=== PATIENT | female | born 1945 | race Caucasian/White ===

== ENCOUNTER → 2017-10-01 15:15 | Outpatient (CLI) | payer MEDICARE, BC, OTHER, SELFPAY ==
[2017-10-01 17:58] LABS: Absolute Neutrophil Count 6.6 X10^3/uL (2.0-7.7); Basophil# 0.05 X10^3/uL; Basophil% 0.4 % (0-1); Eosinophil# 0.08 X10^3/uL; Eosinophils% 0.7 % (0-5); Hematocrit 41.5 % (37-47); Hemoglobin 14.3 g/dl (12.0-15.0); Lymphocyte % 26.9 % (19-41); Mean Corp Hgb Conc 34.5 g/gl (32-36); Mean Corpuscular Hgb 34.4 pg (27.0-32.0); Mean Corpuscular Volume 99.8 fL (81-99); Mean Platelet Vol. 11.1 fl (6.2-12.0); Monocyte# 1.16 X10^3/uL; Monocyte% 10.4 % (0-10); Neutrophil # 6.64 X10^3/uL (2.7-7.7); Neutrophil % 59.5 % (47-70); POSITIVE COUNT YES; POSITIVE DIFFERENTIAL NO; POSITIVE MORPHOLOGY YES; Platelet Count 223 K/mm3 (150-450); RBC Distribution Width CV 13.6 % (11.6-14.6); Red Blood Count 4.16 M/mm3 (4.2-5.4); White Blood Count 11.2 K/mm3 (4.4-11.0)
[2017-10-01 18:15] LABS: Vitamin D,25 Hydroxy 26.6 ng/mL (29.95-100.01)
[2017-10-01 19:17] LABS: ALB/GLOB Ratio 1.1 RATIO (0.9-2.4); AST(SGOT) 22 U/L (15-37); Alanine Aminotransfer ALT/SGPT 31 U/L (13-56); Albumin, Serum 3.7 g/dL (3.2-5.0); Alkaline Phosphatase 85 U/L (45-117); Anion Gap 8 (5-15); BUN 10 mg/dL (7-18); BUN/Creat Ratio 12.3 RATIO (10-20); Calcium,Total 8.6 mg/dL (8.5-10.1); Chloride 106 mmol/L (98-107); Creatinine, Serum 0.81 mg/dL (0.55-1.02); EST Glomerular Filtration Rate 74 mL/min (>60); Est Glom Filt Rate - Afr Amer 90 mL/min (>60); Globulin 3.3 g/dL (2.2-4.2); Glucose 87 mg/dL (74-106); Potassium 4.1 mmol/L (3.5-5.1); Sodium Level 142 mmol/L (136-145); Thyroid Stim Hormone (TSH) 0.72 uIU/mL (0.358-3.74)
[2017-10-02 14:54] LABS: Pathologist Review Reviewed
== END ==
PROVIDERS: Family Provider Family Medicine Geriatric Medicine; PCP Family Medicine Geriatric Medicine; Visit Provider Family Medicine Geriatric Medicine
DX: E11.9 Type 2 diabetes mellitus without complications (principal); E55.9 Vitamin D deficiency, unspecified; E78.4 Other hyperlipidemia
CPT/HCPCS: 36415; 80053; 82306; 84443; 85025

== ENCOUNTER → 2017-11-11 18:37 | Outpatient (CLI) | payer MEDICARE, BC, OTHER, SELFPAY | PROVIDERS: Family Provider Family Medicine Geriatric Medicine; PCP Family Medicine Geriatric Medicine; Visit Provider Family Medicine Geriatric Medicine | DX: N39.0 Urinary tract infection, site not specified (principal) | CPT/HCPCS: 87086; 87088 ==

== ENCOUNTER → 2017-11-12 16:52 | Outpatient (CLI) | payer MEDICARE, BC, OTHER, SELFPAY ==
--- NOTE | 2017-11-12 16:56 | CT_ITS ---
STUDY: CT BRAIN WITHOUT CONTRAST REASON FOR EXAM: Female, 72 years old. Delirium, DIZZINESS, CONFUSION, HX BREAST CA RADIATION DOSAGE (If Supplied By Facility): CTDIvol = ( 44.99 ) mGy, DLP = ( 762.36 ) mGycm TECHNIQUE: Transaxial CT imaging of the brain was performed without administration of intravenous contrast material. COMPARISON: None. FINDINGS: Normal soft tissue structures. Normal calvarium. There are calcifications noted in the distal vertebral arteries. There are calcifications noted in the cavernous carotid arteries. This is consistent for atherosclerotic disease. There is mild cerebral atrophy with widening of the extra-axial spaces and ventricular dilatation. There are areas of decreased attenuation within the white matter tracts of the supratentorial brain, consistent with microvascular disease changes. Normal basal ganglia and thalami. Normal brainstem. There is mild cerebellar atrophy. There is no intracranial hemorrhage. There are no findings of an acute ischemic infarction. Normal visualized paranasal sinuses. CT/Brain/Head without Contrast IMPRESSION: Chronic involutional changes of the brain. There are no acute findings. Electronically Signed: Kyle Abreu MD at 17:28 EDT , Service support ,
== END ==
PROVIDERS: Family Provider Family Medicine Geriatric Medicine; PCP Family Medicine Geriatric Medicine; Visit Provider Family Medicine Geriatric Medicine
DX: F05 Delirium due to known physiological condition (principal)
CPT/HCPCS: 70450

== ENCOUNTER → 2018-04-20 14:47 | Outpatient (CLI) | payer MEDICARE, BC, OTHER, SELFPAY ==
[2018-04-20 17:22] LABS: Absolute Lymphocyte Count 2.93 X10^3/ul (0.83-4.51); Absolute Neutrophil Count 7.9 X10^3/uL (2.0-7.7); Basophil# 0.06 X10^3/uL; Basophil% 0.5 % (0-1); Eosinophil# 0.07 X10^3/uL; Eosinophils% 0.6 % (0-5); Hematocrit 40.8 % (37-47); Hemoglobin 13.4 g/dl (12.0-15.0); Lymphocyte # 2.93 X10^3/ul (4.0); Lymphocyte % 23.8 % (19-41); Mean Corp Hgb Conc 32.8 g/gl (32-36); Mean Corpuscular Hgb 32.5 pg (27.0-32.0); Mean Platelet Vol. 11.1 fl (6.2-12.0); Monocyte# 1.24 X10^3/uL; Monocyte% 10.1 % (0-10); Neutrophil # 7.88 X10^3/uL (2.7-7.7); Platelet Count 243 K/mm3 (150-450); RBC Distribution Width CV 13.4 % (11.6-14.6); RBC Distribution Width SD 48.2 fl (35.1-43.9); Red Blood Count 4.12 M/mm3 (4.2-5.4); White Blood Count 12.3 K/mm3 (4.4-11.0)
[2018-04-20 17:23] LABS: POSITIVE COUNT NO; POSITIVE DIFFERENTIAL NO; POSITIVE MORPHOLOGY NO
[2018-04-20 17:55] LABS: ALB/GLOB Ratio 1.1 RATIO (0.9-2.4); AST(SGOT) 18 U/L (15-37); Alanine Aminotransfer ALT/SGPT 28 U/L (13-56); Albumin, Serum 3.6 g/dL (3.2-5.0); Alkaline Phosphatase 86 U/L (45-117); Anion Gap 7 (5-15); BUN 14 mg/dL (7-18); BUN/Creat Ratio 18.1 RATIO (10-20); Calcium,Total 8.9 mg/dL (8.5-10.1); Chloride 104 mmol/L (98-107); Creatinine, Serum 0.77 mg/dL (0.55-1.02); EST Glomerular Filtration Rate 78 mL/min (>60); Est Glom Filt Rate - Afr Amer 94 mL/min (>60); Globulin 3.3 g/dL (2.2-4.2); Glucose 68 mg/dL (74-106); Potassium 4.2 mmol/L (3.5-5.1); Protein, Total 6.9 g/dL (6.4-8.2); Sodium Level 141 mmol/L (136-145)
[2018-04-20 18:01] LABS: Vitamin D,25 Hydroxy 17.9 ng/mL (29.95-100.01)
[2018-04-22 11:27] LABS: Hep C Antibodies <0.1 s/co ratio (0.0-0.9)
== END ==
PROVIDERS: Family Provider Family Medicine Geriatric Medicine; PCP Family Medicine Geriatric Medicine; Visit Provider Family Medicine Geriatric Medicine
DX: E11.9 Type 2 diabetes mellitus without complications (principal); E55.9 Vitamin D deficiency, unspecified; Z13.89 Encounter for screening for other disorder
CPT/HCPCS: 36415; 80053; 82306; 85025; 86803

== ENCOUNTER → 2018-07-29 16:08 | Outpatient (CLI) | payer MEDICARE, BC, OTHER, SELFPAY ==
--- NOTE | 2018-07-29 16:45 | RAD_ITS ---
STUDY: X-RAY - LUMBAR SPINE REASON FOR EXAM: Female, 73 years old. Low back pain TECHNIQUE: 3 view(s) of the lumbar spine were obtained. COMPARISON: 04/30/2017 FINDINGS: Normal lumbar lordosis. There is no substantial scoliosis. There is a normal alignment of the vertebrae in the lateral view from L1 to L5. There is a bilateral pars defect and grade 2 spondylolisthesis at L5/S1. There is multilevel endplate spondylosis of the lumbar vertebrae. Mild disc space narrowing in the majority of the lumbar spine, there is significant disc space narrowing at L5/S1 There is no demonstrated fracture. There is atherosclerotic calcification of the abdominal aorta without a demonstrated aneurysm. RAD/Lumbar Spine 2 or 3 Views IMPRESSION: Degenerative changes of the spine, as detailed above. Stable bilateral pars defect and grade 2 spondylolisthesis at L5/S1 Electronically Signed: Neo Mora MD at 17:20 EST , Service support ,
== END ==
PROVIDERS: Family Provider Family Medicine Geriatric Medicine; PCP Family Medicine Geriatric Medicine; Referring Provider Family Medicine Geriatric Medicine; Visit Provider Family Medicine Geriatric Medicine
DX: M54.5 Low back pain (principal)
CPT/HCPCS: 72100

== ENCOUNTER → 2018-10-20 14:29 | Outpatient (CLI) | payer MEDICARE, BC, OTHER, SELFPAY ==
[2018-10-20 15:41] LABS: Absolute Neutrophil Count 5.7 X10^3/uL (2.0-7.7); Basophil# 0.04 X10^3/uL; Basophil% 0.4 % (0-1); Eosinophil# 0.08 X10^3/uL; Eosinophils% 0.8 % (0-5); Hematocrit 38.3 % (37-47); Hemoglobin 12.1 g/dl (12.0-15.0); Mean Corp Hgb Conc 31.6 g/gl (32-36); Mean Corpuscular Hgb 29.9 pg (27.0-32.0); Mean Corpuscular Volume 94.6 fL (81-99); Mean Platelet Vol. 10.8 fl (6.2-12.0); Monocyte# 0.89 X10^3/uL; Monocyte% 9.2 % (0-10); Neutrophil # 5.73 X10^3/uL (2.7-7.7); Neutrophil % 59.5 % (47-70); Platelet Count 275 K/mm3 (150-450); RBC Distribution Width CV 14.3 % (11.6-14.6); RBC Distribution Width SD 47.3 fl (35.1-43.9); Red Blood Count 4.05 M/mm3 (4.2-5.4); White Blood Count 9.7 K/mm3 (4.4-11.0)
[2018-10-20 15:43] LABS: POSITIVE COUNT NO; POSITIVE DIFFERENTIAL NO; POSITIVE MORPHOLOGY NO
[2018-10-20 16:25] LABS: ALB/GLOB Ratio 1.1 RATIO (0.9-2.4); AST(SGOT) 19 U/L (15-37); Alanine Aminotransfer ALT/SGPT 25 U/L (13-56); Albumin, Serum 3.6 g/dL (3.2-5.0); Alkaline Phosphatase 90 U/L (45-117); Anion Gap 7 (5-15); BUN 11 mg/dL (7-18); BUN/Creat Ratio 12.8 RATIO (10-20); Calcium,Total 8.4 mg/dL (8.5-10.1); Chloride 106 mmol/L (98-107); Creatinine, Serum 0.86 mg/dL (0.55-1.02); EST Glomerular Filtration Rate 69 mL/min (>60); Est Glom Filt Rate - Afr Amer 83 mL/min (>60); Globulin 3.3 g/dL (2.2-4.2); Glucose 93 mg/dL (74-106); Potassium 3.5 mmol/L (3.5-5.1); Protein, Total 6.9 g/dL (6.4-8.2); Sodium Level 144 mmol/L (136-145)
== END ==
PROVIDERS: Family Provider Family Medicine Geriatric Medicine; PCP Family Medicine Geriatric Medicine; Visit Provider Family Medicine Geriatric Medicine
DX: E11.9 Type 2 diabetes mellitus without complications (principal); E55.9 Vitamin D deficiency, unspecified; I10 Essential (primary) hypertension
CPT/HCPCS: 36415; 80053; 82306; 84443; 85025

== ENCOUNTER → 2019-04-21 14:55 | Outpatient (CLI) | payer MEDICARE, BC, OTHER, SELFPAY ==
[2019-04-21 15:53] LABS: Absolute Lymphocyte Count 2.82 X10^3/uL (0.83-4.51); Absolute Neutrophil Count 7.1 X10^3/uL (2.0-7.7); Basophil# 0.05 X10^3/uL; Basophil% 0.5 % (0-1); Eosinophil# 0.03 X10^3/uL; Eosinophils% 0.3 % (0-5); Hematocrit 37.4 % (37-47); Hemoglobin 11.4 g/dL (12.0-15.0); Lymphocyte # 2.82 X10^3/ul (4.0); Lymphocyte % 25.5 % (19-41); Mean Corp Hgb Conc 30.5 g/dL (32-36); Mean Corpuscular Hgb 26.3 pg (27.0-32.0); Mean Corpuscular Volume 86.2 fL (81-99); Mean Platelet Vol. 10.9 fl (6.2-12.0); Monocyte# 0.84 X10^3/uL; Monocyte% 7.6 % (0-10); NRBC Flagged by Analyzer 0 % (0-5); Neutrophil # 7.11 X10^3/uL (2.7-7.7); Neutrophil % 64.2 % (47-70); Platelet Count 323 K/mm3 (150-450); RBC Distribution Width CV 16.4 % (11.6-14.6); Red Blood Count 4.34 M/mm3 (4.2-5.4); White Blood Count 11.1 K/mm3 (4.4-11.0)
[2019-04-21 16:11] LABS: Vitamin D,25 Hydroxy 44.4 ng/mL (29.95-100.01)
[2019-04-21 16:19] LABS: ALB/GLOB Ratio 1.2 RATIO (0.9-2.4); AST(SGOT) 16 U/L (15-37); Alanine Aminotransfer ALT/SGPT 21 U/L (13-56); Albumin, Serum 3.9 g/dL (3.2-5.0); Alkaline Phosphatase 94 U/L (45-117); Anion Gap 8 (5-15); BUN 14 mg/dL (7-18); BUN/Creat Ratio 14.8 RATIO (10-20); Calcium,Total 8.9 mg/dL (8.5-10.1); Chloride 106 mmol/L (98-107); Creatinine, Serum 0.94 mg/dL (0.55-1.02); EST Glomerular Filtration Rate 62 mL/min (>60); Est Glom Filt Rate - Afr Amer 75 mL/min (>60); Globulin 3.2 g/dL (2.2-4.2); Glucose 97 mg/dL (74-106); Potassium 3.5 mmol/L (3.5-5.1); Protein, Total 7.1 g/dL (6.4-8.2); Sodium Level 143 mmol/L (136-145); Thyroid Stim Hormone (TSH) 0.48 uIU/mL (0.358-3.74)
== END ==
PROVIDERS: Family Provider Family Medicine Geriatric Medicine; PCP Family Medicine Geriatric Medicine; Visit Provider Family Medicine Geriatric Medicine
DX: E11.9 Type 2 diabetes mellitus without complications (principal); R53.83 Other fatigue; E55.9 Vitamin D deficiency, unspecified; N39.0 Urinary tract infection, site not specified
CPT/HCPCS: 36415; 80053; 82306; 84443; 85025; 87086; 87088

== ENCOUNTER → 2019-07-20 14:28 | Outpatient (CLI) | payer MEDICARE, BC, OTHER, SELFPAY ==
[2019-07-20 14:45] LABS: Absolute Lymphocyte Count 3.47 X10^3/uL (0.83-4.51); Absolute Neutrophil Count 9.5 X10^3/uL (2.0-7.7); Basophil% 0.7 % (0-1); Eosinophil# 0.07 X10^3/uL; Eosinophils% 0.5 % (0-5); Hematocrit 41.5 % (37-47); Hemoglobin 13.2 g/dL (12.0-15.0); Lymphocyte # 3.47 X10^3/ul (4.0); Lymphocyte % 23.8 % (19-41); Mean Corp Hgb Conc 31.8 g/dL (32-36); Mean Corpuscular Hgb 27.6 pg (27.0-32.0); Mean Corpuscular Volume 86.8 fL (81-99); Mean Platelet Vol. 10.6 fl (6.2-12.0); Monocyte# 1.04 X10^3/uL; Monocyte% 7.1 % (0-10); NRBC Flagged by Analyzer 0 % (0-5); Neutrophil # 9.46 X10^3/uL (2.7-7.7); Neutrophil % 64.7 % (47-70); Platelet Count 327 K/mm3 (150-450); RBC Distribution Width CV 18.7 % (11.6-14.6); RBC Distribution Width SD 58.7 fl (35.1-43.9); Red Blood Count 4.78 M/mm3 (4.2-5.4); White Blood Count 14.6 K/mm3 (4.4-11.0)
[2019-07-20 15:34] LABS: AST(SGOT) 21 U/L (15-37); Alanine Aminotransfer ALT/SGPT 40 U/L (13-56); Albumin, Serum 3.9 g/dL (3.2-5.0); Alkaline Phosphatase 131 U/L (45-117); Anion Gap 5 (5-15); BUN 14 mg/dL (7-18); BUN/Creat Ratio 12.6 RATIO (10-20); Calcium,Total 9.1 mg/dL (8.5-10.1); Chloride 97 mmol/L (98-107); Creatinine, Serum 1.11 mg/dL (0.55-1.02); EST Glomerular Filtration Rate 51 mL/min (>60); Est Glom Filt Rate - Afr Amer 62 mL/min (>60); Globulin 3.8 g/dL (2.2-4.2); Glucose 112 mg/dL (74-106); Potassium 2.9 mmol/L (3.5-5.1); Protein, Total 7.7 g/dL (6.4-8.2); Sodium Level 139 mmol/L (136-145); Thyroid Stim Hormone (TSH) 0.65 uIU/mL (0.358-3.74)
[2019-07-20 15:36] LABS: Vitamin D,25 Hydroxy 34.7 ng/mL (29.95-100.01)
== END ==
PROVIDERS: Family Provider Family Medicine Geriatric Medicine; PCP Family Medicine Geriatric Medicine; Visit Provider Family Medicine Geriatric Medicine
DX: E11.9 Type 2 diabetes mellitus without complications (principal); E55.9 Vitamin D deficiency, unspecified; R53.83 Other fatigue
CPT/HCPCS: 36415; 80053; 82306; 84443; 85025

== ENCOUNTER → 2019-08-18 16:16 | Outpatient (CLI) | payer MEDICARE, OTHER, SELFPAY ==
[2019-08-18 17:08] LABS: Absolute Lymphocyte Count 2.62 X10^3/uL (0.83-4.51); Absolute Neutrophil Count 10.3 X10^3/uL (2.0-7.7); Basophil# 0.06 X10^3/uL; Basophil% 0.4 % (0-1); Eosinophil# 0.04 X10^3/uL; Eosinophils% 0.3 % (0-5); Hematocrit 36.6 % (37-47); Hemoglobin 11.5 g/dL (12.0-15.0); Lymphocyte # 2.62 X10^3/ul (4.0); Lymphocyte % 18.3 % (19-41); Mean Corp Hgb Conc 31.4 g/dL (32-36); Mean Corpuscular Hgb 28.2 pg (27.0-32.0); Mean Corpuscular Volume 89.7 fL (81-99); Mean Platelet Vol. 10.9 fl (6.2-12.0); Monocyte# 1.07 X10^3/uL; Monocyte% 7.5 % (0-10); NRBC Flagged by Analyzer 0 % (0-5); Neutrophil # 10.34 X10^3/uL (2.7-7.7); Platelet Count 263 K/mm3 (150-450); RBC Distribution Width CV 18.4 % (11.6-14.6); RBC Distribution Width SD 60.4 fl (35.1-43.9); Red Blood Count 4.08 M/mm3 (4.2-5.4); White Blood Count 14.3 K/mm3 (4.4-11.0)
[2019-08-18 17:19] LABS: Anion Gap 5 (5-15); BUN 17 mg/dL (7-18); BUN/Creat Ratio 16.2 RATIO (10-20); Calcium,Total 8.8 mg/dL (8.5-10.1); Chloride 102 mmol/L (98-107); Creatinine, Serum 1.05 mg/dL (0.55-1.02); EST Glomerular Filtration Rate 55 mL/min (>60); Est Glom Filt Rate - Afr Amer 66 mL/min (>60); Glucose 90 mg/dL (74-106); Potassium 3.5 mmol/L (3.5-5.1); Sodium Level 138 mmol/L (136-145)
== END ==
PROVIDERS: Family Provider Family Medicine Geriatric Medicine; PCP Family Medicine Geriatric Medicine; Visit Provider Family Medicine Geriatric Medicine
DX: F05 Delirium due to known physiological condition (principal); E87.6 Hypokalemia
CPT/HCPCS: 36415; 80048; 85025

== ENCOUNTER → 2019-08-25 14:32 | Outpatient (CLI) | payer MEDICARE, OTHER, SELFPAY ==
[2019-08-25 14:11] VITALS: BMI 25.9
--- NOTE | 2019-08-25 14:33 | RAD_ITS ---
STUDY: X-RAY - LEFT SHOULDER REASON FOR EXAM: Fracture. TECHNIQUE: 4 view(s) of the shoulder. COMPARISON: None. FINDINGS: There is osteopenia. Normal glenohumeral articulation. Normal acromioclavicular joint. Normal acromion. There is an impacted fracture of the surgical neck of the humerus and a nondisplaced fracture of the greater tuberosity. There are surgical clips adjacent to the chest wall. There are prominent interstitial lung markings. RAD/Shoulder min 2 Views IMPRESSION: Proximal humeral fracture. Electronically Signed: Chris Espinosa MD at 15:06 EST Tel , Service support ,
== END ==
PROVIDERS: PCP Family Medicine Geriatric Medicine; Referring Provider Orthopaedic Surgery; Visit Provider Orthopaedic Surgery
DX: M25.512 Pain in left shoulder (principal)
CPT/HCPCS: 73030

== ENCOUNTER → 2019-09-02 14:10 | Outpatient (CLI) | payer MEDICARE, OTHER, SELFPAY ==
[2019-08-25 14:11] VITALS: BMI 25.9
--- NOTE | 2019-09-02 14:20 | RAD_ITS ---
HISTORY: LEFT PAIN IN THE WRIST. ADDITIONAL HISTORY: None provided. TECHNIQUE: Left wrist 3 views Number of images including paperwork: 3 COMPARISON: None FINDINGS: BONES: No acute fracture. Mineralization appears decreased. JOINTS: No subluxation. Mild to moderate degenerative changes of the wrist and first carpometacarpal joints. SOFT TISSUES: No distinct foreign body. RAD/Wrist min 3 Views IMPRESSION: Degenerative changes without acute osseous abnormality. at 2303 Reported and signed by: Sissy Mike MD Electronically Signed: Sissy Mike MD at 23:03 EST Tel , Service support ,
== END ==
PROVIDERS: PCP Family Medicine Geriatric Medicine; Referring Provider Family Medicine Geriatric Medicine; Visit Provider Family Medicine Geriatric Medicine
DX: M25.532 Pain in left wrist (principal); N39.0 Urinary tract infection, site not specified
CPT/HCPCS: 73110; 87086

== ENCOUNTER → 2019-09-22 15:09 | Outpatient (CLI) | payer MEDICARE, OTHER, SELFPAY ==
[2019-09-22 08:02] VITALS: BMI 25.9
--- NOTE | 2019-09-22 15:10 | RAD_ITS ---
STUDY: X-RAY - LEFT SHOULDER REASON FOR EXAM: Female, 74 years old. Fell 3 weeks ago TECHNIQUE: 3 view(s) of the shoulder. COMPARISON: 08/25/2019 FINDINGS: Generalized osteopenia again noted. No interval change in the positioning and alignment of the previously noted impacted surgical neck fracture of the humerus. There has been some progressive healing but incomplete osseous union is yet to occur. Since the previous study, there has been inferior subluxation of the humeral head relative to the glenoid on the AP films. This may suggest rotator cuff pathology or more likely capsular disruption. Normal alignment of the acromioclavicular joint. No upper rib fracture or pneumothorax RAD/Shoulder min 2 Views IMPRESSION: No interval change in alignment or positioning of the previously noted impacted fracture of the proximal left humerus. There has been some progressive healing since the previous study, osseous union is yet to occur. Inferior subluxation of the humeral head relative to the glenoid suggesting likely capsular disruption or injury Anatomic alignment of the acromioclavicular joint Electronically Signed: Neo Mora MD at 15:52 EST , Service support ,
== END ==
PROVIDERS: PCP Family Medicine Geriatric Medicine; Referring Provider Orthopaedic Surgery; Visit Provider Orthopaedic Surgery
DX: S42.202A Unspecified fracture of upper end of left humerus, initial encounter for closed fracture (principal)
CPT/HCPCS: 73030

== ENCOUNTER → 2019-10-19 14:30 | Outpatient (CLI) | payer MEDICARE, OTHER, SELFPAY ==
[2019-09-22 08:02] VITALS: BMI 25.9
[2019-10-19 15:17] LABS: Absolute Lymphocyte Count 3.64 X10^3/uL (0.83-4.51); Basophil# 0.08 X10^3/uL; Basophil% 0.6 % (0-1); Eosinophil# 0.06 X10^3/uL; Eosinophils% 0.5 % (0-5); Hematocrit 38.1 % (37-47); Hemoglobin 11.8 g/dL (12.0-15.0); Lymphocyte # 3.64 X10^3/ul (4.0); Lymphocyte % 27.5 % (19-41); Mean Corpuscular Hgb 28.9 pg (27.0-32.0); Mean Corpuscular Volume 93.4 fL (81-99); Mean Platelet Vol. 10.7 fl (6.2-12.0); Monocyte# 1.14 X10^3/uL; Monocyte% 8.6 % (0-10); NRBC Flagged by Analyzer 0 % (0-5); Neutrophil # 8.01 X10^3/uL (2.7-7.7); Neutrophil % 60.4 % (47-70); Platelet Count 309 K/mm3 (150-450); Red Blood Count 4.08 M/mm3 (4.2-5.4); White Blood Count 13.3 K/mm3 (4.4-11.0)
[2019-10-19 15:31] LABS: Vitamin D,25 Hydroxy 47.1 ng/mL
[2019-10-19 15:42] LABS: AST(SGOT) 24 U/L (15-37); Alanine Aminotransfer ALT/SGPT 37 U/L (13-56); Albumin, Serum 3.7 g/dL (3.2-5.0); Alkaline Phosphatase 122 U/L (45-117); Anion Gap 5 (5-15); BUN 15 mg/dL (7-18); Calcium,Total 8.7 mg/dL (8.5-10.1); Chloride 102 mmol/L (98-107); Creatinine, Serum 0.94 mg/dL (0.55-1.02); EST Glomerular Filtration Rate 62 mL/min (>60); Est Glom Filt Rate - Afr Amer 75 mL/min (>60); Globulin 3.6 g/dL (2.2-4.2); Glucose 90 mg/dL (74-106); Potassium 3.7 mmol/L (3.5-5.1); Protein, Total 7.3 g/dL (6.4-8.2); Sodium Level 138 mmol/L (136-145); Thyroid Stim Hormone (TSH) 0.86 uIU/mL (0.358-3.74)
== END ==
PROVIDERS: PCP Family Medicine Geriatric Medicine; Visit Provider Family Medicine Geriatric Medicine
DX: E11.9 Type 2 diabetes mellitus without complications (principal); E55.9 Vitamin D deficiency, unspecified
CPT/HCPCS: 36415; 80053; 82306; 84443; 85025

== ENCOUNTER → 2019-12-15 10:50 | Outpatient (CLI) | payer MEDICARE, OTHER, SELFPAY ==
[2019-09-22 08:02] VITALS: BMI 25.9
--- NOTE | 2019-12-15 10:51 | RAD_ITS ---
STUDY: X-RAY - LEFT HUMERUS REASON FOR EXAM: Female, 74 years old. Fracture. TECHNIQUE: 3 view(s) of the humerus. COMPARISON: None. FINDINGS: There is a fracture of the anatomic neck of the humerus. There is cephalad displacement of the humeral shaft which impacts along the inferolateral aspect of the acromium. The humeral head is rotated but remains in normal alignment with the glenoid process. The remainder of the humeral shaft is unremarkable. The surgical clips in the left breast. RAD/Humerus min 2 Views IMPRESSION: Displaced fracture of the proximal humerus. Electronically Signed: Stepan Greenwood DO at 21:32 EDT Tel [phone], Service support ,
== END ==
PROVIDERS: PCP Family Medicine Geriatric Medicine; Referring Provider Orthopaedic Surgery; Visit Provider Orthopaedic Surgery
DX: S42.202A Unspecified fracture of upper end of left humerus, initial encounter for closed fracture (principal)
CPT/HCPCS: 73060

== ENCOUNTER → 2020-01-21 12:57 | Outpatient (CLI) | payer MEDICARE, OTHER, SELFPAY ==
[2019-12-15 13:52] VITALS: BMI 25.9
[2020-01-21 12:39] LABS: Absolute Lymphocyte Count 2.57 X10^3/uL (0.83-4.51); Absolute Neutrophil Count 7.1 X10^3/uL (2.0-7.7); Basophil# 0.08 X10^3/uL; Basophil% 0.7 % (0-1); Eosinophil# 0.02 X10^3/uL; Eosinophils% 0.2 % (0-5); Hematocrit 37.6 % (37-47); Hemoglobin 11.7 g/dL (12.0-15.0); Lymphocyte # 2.57 X10^3/ul (4.0); Lymphocyte % 23.8 % (19-41); Mean Corp Hgb Conc 31.1 g/dL (32-36); Mean Corpuscular Hgb 29.5 pg (27.0-32.0); Mean Corpuscular Volume 94.7 fL (81-99); Monocyte# 0.76 X10^3/uL; Monocyte% 7.1 % (0-10); NRBC Flagged by Analyzer 0 % (0-5); Neutrophil % 65.9 % (47-70); Platelet Count 318 K/mm3 (150-450); RBC Distribution Width CV 15.6 % (11.6-14.6); RBC Distribution Width SD 53.9 fl (35.1-43.9); Red Blood Count 3.97 M/mm3 (4.2-5.4); White Blood Count 10.8 K/mm3 (4.4-11.0)
[2020-01-21 12:55] LABS: Anion Gap 3 (5-15); BUN 17 mg/dL (7-18); BUN/Creat Ratio 19.9 RATIO (10-20); Calcium,Total 8.7 mg/dL (8.5-10.1); Chloride 103 mmol/L (98-107); Creatinine, Serum 0.85 mg/dL (0.55-1.02); EST Glomerular Filtration Rate 69 mL/min (>60); Est Glom Filt Rate - Afr Amer 84 mL/min (>60); Glucose 146 mg/dL (74-106); Potassium 3.1 mmol/L (3.5-5.1); Sodium Level 140 mmol/L (136-145)
--- NOTE | 2020-01-21 13:23 | RAD_ITS ---
STUDY: X-RAY - RIGHT KNEE REASON FOR EXAM: Female, 74 years old. PAIN IN RIGHT KNEE. PATIENT STATES NO KNOWN RECENT INJURY TO HER KNEE. TECHNIQUE: 4 view(s) of the knee. COMPARISON: None. FINDINGS: Normal visualized distal femur. Normal visualized proximal tibia and fibula. Normal proximal tibiofibular articulation. Normal medial femorotibial compartment. Normal lateral femorotibial compartment. Normal patellofemoral articulation. The soft tissue structures are unremarkable. RAD/Knee 4 or More Views IMPRESSION: Normal x-ray examination of the knee. Electronically Signed: Franco Morris, at 16:44 EDT Tel , Service support ,
== END ==
LOC: POLAB3 12:57 → RAD 12:59
PROVIDERS: PCP Family Medicine Geriatric Medicine; Visit Provider Family Medicine Geriatric Medicine
DX: R68.83 Chills (without fever) (principal); M25.569 Pain in unspecified knee
CPT/HCPCS: 36415; 73564; 80048; 85025

== ENCOUNTER → 2020-02-09 13:35 | Outpatient (CLI) | payer MEDICARE, OTHER, SELFPAY ==
[2019-12-15 13:52] VITALS: BMI 25.9
[2020-02-09 15:09] LABS: Anion Gap 5 (5-15); BUN 13 mg/dL (7-18); BUN/Creat Ratio 13.4 RATIO (10-20); Calcium,Total 9.1 mg/dL (8.5-10.1); Chloride 100 mmol/L (98-107); Creatinine, Serum 0.97 mg/dL (0.55-1.02); EST Glomerular Filtration Rate 59 mL/min (>60); Est Glom Filt Rate - Afr Amer 72 mL/min (>60); Glucose 93 mg/dL (74-106); Potassium 3.5 mmol/L (3.5-5.1); Sodium Level 139 mmol/L (136-145)
== END ==
PROVIDERS: PCP Family Medicine Geriatric Medicine; Visit Provider Family Medicine Geriatric Medicine
DX: E87.6 Hypokalemia (principal)
CPT/HCPCS: 36415; 80048

== ENCOUNTER → 2020-02-14 15:33 | Outpatient (CLI) | payer MEDICARE, OTHER, SELFPAY ==
[2019-12-15 13:52] VITALS: BMI 25.9
[2020-02-14 17:07] LABS: Absolute Lymphocyte Count 3.27 X10^3/uL (0.83-4.51); Absolute Neutrophil Count 8.1 X10^3/uL (2.0-7.7); Basophil# 0.09 X10^3/uL; Basophil% 0.7 % (0-1); Eosinophil# 0.04 X10^3/uL; Eosinophils% 0.3 % (0-5); Hematocrit 37.2 % (37-47); Hemoglobin 11.7 g/dL (12.0-15.0); Lymphocyte # 3.27 X10^3/ul (4.0); Lymphocyte % 25.4 % (19-41); Mean Corp Hgb Conc 31.5 g/dL (32-36); Mean Corpuscular Hgb 29.5 pg (27.0-32.0); Mean Corpuscular Volume 93.9 fL (81-99); Mean Platelet Vol. 10.6 fl (6.2-12.0); Monocyte# 1.06 X10^3/uL; Monocyte% 8.2 % (0-10); NRBC Flagged by Analyzer 0 % (0-5); Neutrophil % 62.8 % (47-70); Platelet Count 332 K/mm3 (150-450); RBC Distribution Width CV 16.2 % (11.6-14.6); RBC Distribution Width SD 54.9 fl (35.1-43.9); Red Blood Count 3.96 M/mm3 (4.2-5.4); White Blood Count 12.9 K/mm3 (4.4-11.0)
[2020-02-14 17:24] LABS: Vitamin D,25 Hydroxy 46.5 ng/mL
[2020-02-14 17:32] LABS: AST(SGOT) 18 U/L (15-37); Alanine Aminotransfer ALT/SGPT 33 U/L (13-56); Albumin, Serum 3.7 g/dL (3.2-5.0); Alkaline Phosphatase 117 U/L (45-117); Anion Gap 3 (5-15); BUN 15 mg/dL (7-18); Chloride 101 mmol/L (98-107); EST Glomerular Filtration Rate 58 mL/min (>60); Est Glom Filt Rate - Afr Amer 70 mL/min (>60); Globulin 3.7 g/dL (2.2-4.2); Glucose 101 mg/dL (74-106); Potassium 3.4 mmol/L (3.5-5.1); Protein, Total 7.4 g/dL (6.4-8.2); Sodium Level 138 mmol/L (136-145); Thyroid Stim Hormone (TSH) 0.65 uIU/mL (0.358-3.74)
== END ==
PROVIDERS: PCP Family Medicine Geriatric Medicine; Visit Provider Family Medicine Geriatric Medicine
DX: E11.9 Type 2 diabetes mellitus without complications (principal); E55.9 Vitamin D deficiency, unspecified; R53.83 Other fatigue
CPT/HCPCS: 36415; 80053; 82306; 84443; 85025

== ENCOUNTER → 2020-04-24 15:10 | Outpatient (CLI) | payer MEDICARE, OTHER, SELFPAY ==
[2019-12-15 13:52] VITALS: BMI 25.9
[2020-04-24 17:12] LABS: Absolute Lymphocyte Count 3.18 X10^3/uL (0.83-4.51); Absolute Neutrophil Count 7.6 X10^3/uL (2.0-7.7); Basophil# 0.08 X10^3/uL; Basophil% 0.7 % (0-1); Eosinophil# 0.04 X10^3/uL; Eosinophils% 0.3 % (0-5); Hematocrit 39.3 % (37-47); Hemoglobin 12.2 g/dL (12.0-15.0); Lymphocyte # 3.18 X10^3/ul (4.0); Lymphocyte % 26.1 % (19-41); Mean Corpuscular Hgb 28.6 pg (27.0-32.0); Mean Corpuscular Volume 92.3 fL (81-99); Mean Platelet Vol. 11.2 fl (6.2-12.0); Monocyte# 1.08 X10^3/uL; Monocyte% 8.9 % (0-10); NRBC Flagged by Analyzer 0 % (0-5); Neutrophil # 7.55 X10^3/uL (2.7-7.7); Neutrophil % 61.8 % (47-70); Platelet Count 304 K/mm3 (150-450); RBC Distribution Width CV 16.2 % (11.6-14.6); RBC Distribution Width SD 55.3 fl (35.1-43.9); Red Blood Count 4.26 M/mm3 (4.2-5.4); White Blood Count 12.2 K/mm3 (4.4-11.0)
[2020-04-24 17:33] LABS: AST(SGOT) 16 U/L (15-37); Alanine Aminotransfer ALT/SGPT 28 U/L (13-56); Albumin, Serum 3.6 g/dL (3.2-5.0); Alkaline Phosphatase 106 U/L (45-117); Anion Gap 3 (5-15); BUN 16 mg/dL (7-18); BUN/Creat Ratio 13.2 RATIO (10-20); Chloride 102 mmol/L (98-107); Creatinine, Serum 1.21 mg/dL (0.55-1.02); EST Glomerular Filtration Rate 46 mL/min (>60); Est Glom Filt Rate - Afr Amer 56 mL/min (>60); Globulin 3.7 g/dL (2.2-4.2); Glucose 92 mg/dL (74-106); Potassium 3.5 mmol/L (3.5-5.1); Protein, Total 7.3 g/dL (6.4-8.2); Sodium Level 138 mmol/L (136-145); Thyroid Stim Hormone (TSH) 0.49 uIU/mL (0.358-3.74)
[2020-04-26 08:11] LABS: Vitamin D,25 Hydroxy 30.3 ng/mL
== END ==
PROVIDERS: PCP Family Medicine Geriatric Medicine; Visit Provider Family Medicine Geriatric Medicine
DX: E11.9 Type 2 diabetes mellitus without complications (principal); E55.9 Vitamin D deficiency, unspecified; R53.83 Other fatigue
CPT/HCPCS: 36415; 80053; 82306; 84443; 85025

== ENCOUNTER → 2020-04-27 12:50 | Outpatient (CLI) | payer MEDICARE, OTHER, SELFPAY ==
[2019-12-15 13:52] VITALS: BMI 25.9
--- NOTE | 2020-04-27 12:59 | US_ITS ---
HISTORY: LEFT BUTTOCK NODULE US Soft Tissue TECHNIQUE: Real-time sonographic imaging of the area of interest of the left buttock near the hip was performed. # of images incl. paperwork: 20 COMPARISON: None. FINDINGS: In the area of the lump, there is a subcutaneous nonspecific mixed echogenicity structure measuring 1.6 x 1.0 x 1.4 cm. There is no associated abnormal vascularity. No free fluid or abnormal fluid collections. US/Other Unlisted US Procedure IMPRESSION: 1. A subcutaneous avascular nonspecific nodule in the area of interest of left buccal tic near the hip measuring 1.6 x 1.0 x 1.4 cm. Further characterization is limited. at 2002 Reported and signed by: Rhett Almanzar MD Electronically Signed: Rhett Almanzar MD at 20:01 EDT Tel , Service support ,
== END ==
PROVIDERS: PCP Family Medicine Geriatric Medicine; Referring Provider Family Medicine Geriatric Medicine; Visit Provider Family Medicine Geriatric Medicine
DX: R22.2 Localized swelling, mass and lump, trunk (principal)
CPT/HCPCS: 76882; 76999

== ENCOUNTER → 2020-06-01 16:01 | Outpatient (CLI) | payer MEDICARE, OTHER, SELFPAY ==
[2019-12-15 13:52] VITALS: BMI 25.9
--- NOTE | 2020-06-01 16:06 | RAD_ITS ---
STUDY: X-RAY - RIGHT SHOULDER REASON FOR EXAM: Female, 75 years old. Bilateral shoulder pain, left greater than right. TECHNIQUE: 2 view(s) of the shoulder. COMPARISON: None. FINDINGS: There is moderate degenerative arthrosis of the glenohumeral articulation. There is degenerative arthrosis of the acromioclavicular joint without inferior osseous spur formation. Normal acromion. There is no acute fracture, dislocation or destructive osseous pathology. There is demineralization of the humerus and visualized osseous structures. The soft tissue structures are unremarkable. Normal visualized pulmonary apex. RAD/Shoulder min 2 Views IMPRESSION: Osteopenia and arthrosis of the right shoulder. Electronically Signed: Stepan Greenwood DO at 22:53 EST Tel [phone], Service support ,
--- NOTE | 2020-06-01 16:06 | RAD_ITS ---
STUDY: X-RAY - LEFT SHOULDER REASON FOR EXAM: Female, 75 years old. Bilateral shoulder pain, left greater than right. TECHNIQUE: 2 view(s) of the shoulder. COMPARISON: 09/22/2019. FINDINGS: There is a fracture of the left humeral neck with cephalad displacement of the shaft. There is no evidence of healing. The humeral head remains in normal alignment with the glenoid process. There is degenerative arthrosis of the acromioclavicular joint without inferior osseous spur formation. Normal acromion. The soft tissue structures are unremarkable. Normal visualized pulmonary apex. 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 Electronically Signed: Stepan Greenwood DO at 22:59 EST Tel [phone], Service support ,
--- NOTE | 2020-06-01 16:15 | RAD_ITS ---
STUDY: X-RAY - CERVICAL SPINE REASON FOR EXAM: Female, 75 years old. Neck pain. Bilateral shoulder pain. TECHNIQUE: 3 view(s) of the cervical spine were obtained. COMPARISON: 04/30/2017. FINDINGS: There are degenerative changes of the anterior atlantoaxial articulation. Normal odontoid process. Normal cervical lordosis. There is diffuse demineralization of the cervical spine. There is disc space narrowing at multiple levels. There is no evidence of acute fracture or loss of vertebral axial height. There is maintenance of normal alignment. The soft tissue structures are unremarkable. RAD/Cerv Spine 2 or 3 Views IMPRESSION: Degenerative changes of the cervical spine. There is no major interval change. Electronically Signed: Stepan Greenwood DO at 23:04 EST Tel [phone], Service support ,
== END ==
PROVIDERS: PCP Family Medicine Geriatric Medicine; Referring Provider Family Medicine Geriatric Medicine; Visit Provider Family Medicine Geriatric Medicine
DX: M54.2 Cervicalgia (principal); M25.519 Pain in unspecified shoulder
CPT/HCPCS: 72040; 73030

== ENCOUNTER → 2020-06-05 17:57 | Outpatient (CLI) | payer MEDICARE, OTHER, SELFPAY ==
[2019-12-15 13:52] VITALS: BMI 25.9
== END ==
PROVIDERS: PCP Family Medicine Geriatric Medicine; Visit Provider Family Medicine Geriatric Medicine
DX: R68.83 Chills (without fever) (principal)
CPT/HCPCS: 87633; 87635; C9803; U0003

== ENCOUNTER → 2020-08-10 17:14 | Outpatient (CLI) | payer MEDICARE, OTHER, SELFPAY ==
[2019-12-15 13:52] VITALS: BMI 25.9
--- NOTE | 2020-08-10 17:30 | RAD_ITS ---
STUDY: X-RAY - CERVICAL SPINE REASON FOR EXAM: Female, 75 years old. NECK PAIN -- PATIENT UNABLE TO AMBULATE WELL DUE TO PREVIOUS STROKE. ALL IMAGES DONE IN THE WHEELCHAIR DUE TO HER CONDITION. BEST POSSIBLE. TECHNIQUE: 4 view(s) of the cervical spine were obtained. COMPARISON: Prior cervical spine films of 06/01/2020 FINDINGS: Normal anterior atlantoaxial articulation. Normal odontoid process. Normal cervical lordosis. Demineralized osseous structures without acute fracture deformity. Moderate degenerative disc narrowing at C4-5, C5-6 minimal narrowing in other cervical levels. Posterior elements remain properly located. Bilateral carotid artery calcifications. RAD/Cerv Spine 2 or 3 Views IMPRESSION: Normal alignment of the cervical spine. Demineralized osseous structures without fracture deformity. Moderate degenerative disc changes at C4-5 and C5-6 with mild disc narrowing at other levels. Findings are not substantially changed from prior exam of 06/01/2020 Electronically Signed: Grace Solis MD at 19:39 EST , Service support ,
[2020-08-10 17:56] LABS: Absolute Lymphocyte Count 2.46 X10^3/uL (0.83-4.51); Absolute Neutrophil Count 7.6 X10^3/uL (2.0-7.7); Basophil# 0.07 X10^3/uL; Basophil% 0.6 % (0-1); Eosinophil# 0.02 X10^3/uL; Eosinophils% 0.2 % (0-5); Hematocrit 37.1 % (37-47); Lymphocyte # 2.46 X10^3/ul (4.0); Lymphocyte % 21.9 % (19-41); Mean Corp Hgb Conc 32.3 g/dL (32-36); Mean Corpuscular Volume 92.8 fL (81-99); Mean Platelet Vol. 10.3 fl (6.2-12.0); NRBC Flagged by Analyzer 0 % (0-5); Neutrophil % 67.7 % (47-70); Platelet Count 343 K/mm3 (150-450); RBC Distribution Width CV 14.6 % (11.6-14.6); RBC Distribution Width SD 50.2 fl (35.1-43.9); White Blood Count 11.2 K/mm3 (4.4-11.0)
[2020-08-10 18:33] LABS: AST(SGOT) 16 U/L (15-37); Alanine Aminotransfer ALT/SGPT 21 U/L (13-56); Albumin, Serum 3.7 g/dL (3.2-5.0); Alkaline Phosphatase 93 U/L (45-117); Anion Gap 6 (5-15); BUN 15 mg/dL (7-18); BUN/Creat Ratio 16.9 RATIO (10-20); Calcium,Total 9.3 mg/dL (8.5-10.1); Chloride 104 mmol/L (98-107); Creatinine, Serum 0.89 mg/dL (0.55-1.02); EST Glomerular Filtration Rate 66 mL/min (>60); Est Glom Filt Rate - Afr Amer 80 mL/min (>60); Globulin 3.7 g/dL (2.2-4.2); Glucose 93 mg/dL (74-106); Potassium 2.9 mmol/L (3.5-5.1); Protein, Total 7.4 g/dL (6.4-8.2); Sodium Level 140 mmol/L (136-145); Thyroid Stim Hormone (TSH) 0.49 uIU/mL (0.358-3.74)
== END ==
PROVIDERS: PCP Family Medicine Geriatric Medicine; Visit Provider Family Medicine Geriatric Medicine
DX: M54.2 Cervicalgia (principal); Z86.73 Personal history of transient ischemic attack (TIA), and cerebral infarction without residual deficits
CPT/HCPCS: 36415; 72040; 80053; 84443; 85025

== ENCOUNTER → 2020-08-11 08:34 | Outpatient (CLI) | payer MEDICARE, OTHER, SELFPAY ==
[2019-12-15 13:52] VITALS: BMI 25.9
--- NOTE | 2020-08-11 08:42 | MRI_ITS ---
We are attempting to reach an attending provider to discuss findings. An addendum with communication details will be sent when the communication is complete. STUDY: MRI BRAIN WITHOUT CONTRAST REASON FOR EXAM: Female, 75 years old. cva, L weakness TECHNIQUE: Standardized multiplanar fat and water weighted pulse sequences were obtained. COMPARISON: CT 11/12/2017 FINDINGS: There is moderate cerebral atrophy with widening of the extra-axial spaces and ventricular dilatation. There are multiple white matter hyperintensities, distributed throughout the deep white matter tracts of the cerebral hemispheres, consistent with moderate chronic white matter ischemic changes. 1.5 cm oval hyperintensity of the right side of the brainstem at the level the fourth ventricle demonstrates restricted diffusion consistent with early acute or subacute brainstem infarct. Normal T2* images of the brain without demonstrated susceptibility artifact. There is no demonstrated hemosiderin stain. Normal bilateral basal ganglia. Normal thalami. There is no extra-axial fluid accumulation. Normal flow voids within the major intracranial circulation suggesting patency by spin echo criteria. Normal sella turcica, pituitary gland, infundibular stalk, optic chiasm and hypothalamus. Normal tectal plate and pineal gland. Normal midbrain, kanchan and medulla. Normal cerebellum. Normal basal cisterns. Normal bilateral temporal bones. Normal bilateral internal auditory canals. No demonstrated orbital abnormality, within the constraints of a routine brain study. Normal visualized paranasal sinuses. Normal calvarium and skull base. Normal visualized soft tissue structures. Normal visualized upper cervical spine. MRI/Brain without Contrast IMPRESSION: Involutional changes of the brain, as described above. 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 Electronically Signed: Deshawn Vann MD at 10:53 EST Tel , Service support ,
--- NOTE | 2020-08-11 08:43 | MRI_ITS ---
STUDY: MRA OF THE HEAD WITHOUT CONTRAST REASON FOR EXAM: Female, 75 years old. cva, L weakness TECHNIQUE: 3-D [id number] (TOF) imaging was performed with MIPs. The study was performed unenhanced. COMPARISON: None. FINDINGS: Normal bilateral petrous carotid arteries. Normal right cavernous carotid artery with a normal supraclinoid bifurcation. Normal left cavernous carotid artery with a normal supraclinoid bifurcation. Normal right A1 segments of the anterior cerebral artery. Normal left A1 segments of the anterior cerebral artery. Normal intact anterior communicating artery (ACOM). Normal bilateral A2 segments of the anterior cerebral arteries. Normal right M1 and M2 segments of the middle cerebral arteries, with a normal M1 bifurcation. Normal left M1 and M2 segments of the middle cerebral arteries, with a normal M1 bifurcation. There is a persistent origin of the right posterior cerebral artery with absence of the P1 segment of the right posterior cerebral artery. Normal left posterior communicating artery (PCOM). Normal bilateral vertebral arteries. Normal basilar artery with a normal basilar bifurcation. The visualized bilateral superior cerebellar (SCA) arteries are normal. Normal bilateral P1, P2 and visualized P3 segments of the posterior cerebral arteries. There is no demonstrated aneurysm of the [place]. There is no major vessel occlusion or hemodynamically significant stenosis. There is no demonstrated abnormality of the visualized brain. MRI/MRA Head ONLY without Contrast IMPRESSION: Normal MRA of the head Electronically Signed: Deshawn Vann MD at 10:54 EST Tel , Service support ,
--- NOTE | 2020-08-11 08:44 | MRI_ITS ---
STUDY: MRA NECK WITH AND WITHOUT CONTRAST REASON FOR EXAM: Female, 75 years old. cva, L weakness TECHNIQUE: 3-D [id number]-[id number] (TOF) imaging was performed in an 1.5 T MRI scanner. IV DOTAREM 11 CC was administered for the contrast enhanced images. COMPARISON: None. FINDINGS: RIGHT CAROTID ARTERIES: Normal right common carotid artery (CCA). Normal right common carotid bulb. Normal origin of the right internal carotid (ICA) artery without a hemodynamically significant stenosis. Normal visualized cervical portion of the right internal carotid artery. Normal origin of the right external carotid artery (ECA). LEFT CAROTID ARTERIES: Normal left common carotid artery (CCA). Normal left common carotid bulb. Normal origin of the left internal carotid (ICA) artery without a hemodynamically significant stenosis. Normal visualized cervical portion of the left internal carotid artery. Normal origin of the left external carotid artery (ECA). VERTEBRAL ARTERIES: Normal antegrade flow within the bilateral vertebral artery without a hemodynamically significant stenosis. MRI/MRA Neck WITH and W/O Contrast IMPRESSION: Normal bilateral cervical carotid and vertebral arteries. Electronically Signed: Deshawn Vann MD at 10:55 EST Tel , Service support ,
== END ==
PROVIDERS: PCP Family Medicine Geriatric Medicine; Referring Provider Family Medicine Geriatric Medicine; Visit Provider Family Medicine Geriatric Medicine
DX: Z86.73 Personal history of transient ischemic attack (TIA), and cerebral infarction without residual deficits (principal)
CPT/HCPCS: 70544; 70549; 70551; A9575

== ENCOUNTER 2020-08-11 11:49 | Inpatient (IN) | payer MEDICARE, OTHER, SELFPAY ==
[2019-12-15 13:52] VITALS: BMI 25.9
[2020-08-11 12:02] VITALS: BP 106/51; PULSE 69; PULSE 70; RESP 16; RESP 18; TEMP 37.1; O2SAT 97; O2SAT 98; BMI 27.4; BMI 27.5
[2020-08-11 14:09] VITALS: BP 127/63; PULSE 69; RESP 17; TEMP 36.7; O2SAT 92
--- NOTE | 2020-08-11 14:14 | HP.PCM_ITS ---
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 Status: Acute (3) Left hemiparesis Status: Acute (4) Facial droop due to stroke Status: Acute (5) Dysphagia Status: Acute (6) Muscle spasm Status: Acute (7) Chronic obstructive pulmonary disease Status: Chronic (8) Tobacco abuse Status: Chronic (9) Hypertension Status: Chronic (10) Hyperlipidemia Status: Chronic (11) GERD (gastroesophageal reflux disease) Status: Chronic (12) Hypokalemia Status: Chronic (13) Depression Status: Chronic (14) Anxiety Status: Chronic History of Present Illness Date of Admission: 08/11/20 Chief Complaint: Here for rehabilitation, strengthening, prior to discharge home with , son. 08/10/2020 The patient is a 75 year old Female with below past medical history presented to her primary care doctor's office with chief complaint of stroke. 2 days ago, she got up and felt very dizzy. She fell, but did not hit her head, or lose consciousness. Patient/family she had a stroke, she was unable to use her left side, and unable to walk, but they opted not to go to the emergency department. She then developed right facial droop. She also has dysphagia, but no obvious choking. Aspirin 81MG and Plavix 75MG were started, and she is already on high intensity Atorvastatin 40MG at bedtime. 08/11/2020 MRI brain showed right brainstem stroke. 08/11/2020 MRA head, neck were normal. I offered hospitalization letting patient/family know risks of sudden from stroke, seizures from stroke, cardiac arrhythmias, and they declined hospitalization. 08/11/2020 Admit to TCU with debility, here for rehabilitation, strengthening, prior to discharge home with /family. Past Medical History Past Medical History (Chronic Problems): Chronic Problems (Last Updated 08/25/19 @ 14:44 by Larisa Kinney) Chronic obstructive pulmonary disease (Chronic) Tobacco abuse (Chronic) Hypertension (Chronic) Hyperlipidemia (Chronic) GERD (gastroesophageal reflux disease) (Chronic) Hypokalemia (Chronic) Depression (Chronic) Anxiety (Chronic) Medical History: Medical History (Last Updated 08/25/19 @ 14:44 by Larisa Kinney) Diabetes E11.9 Mitral valve prolapse I34.1 TIA (transient ischemic attack) G45.9 Allergies acetaminophen [From Darvocet-N] Allergy (Verified 08/25/19 14:14) swelling codeine Allergy (Verified 08/25/19 14:13) swelling Iodinated Contrast Media Allergy (Verified 08/25/19 14:13) swelling iodine Allergy (Verified 08/25/19 14:13) swelling meperidine [From Demerol] Allergy (Verified 08/25/19 14:14) heart stop morphine Allergy (Verified 08/25/19 14:13) swelling propoxyphene [From Darvocet-N] Allergy (Verified 08/25/19 14:13) heart stop Home Medications: Ambulatory Orders Medication Instructions Recorded albuterol sulfate 90 mcg/actuation 1 puff INHALATION 4X/DAY PRN PRN 08/25/19 aerosol inhaler alprazolam 1 mg tablet 1 mg PO 4X/DAY 08/25/19 atorvastatin 40 mg tablet 40 mg PO DAILY 08/25/19 famotidine 40 mg tablet 40 mg PO DAILY 08/25/19 oxycodone 5 mg capsule 5 mg PO Q6H PRN #56 cap 08/25/19 potassium chloride 20 mEq oral 20 meq PO BID 08/25/19 packet potassium citrate 10 mEq (1,080 10 meq PO TID 08/25/19 mg) tablet,extended release propranolol 40 mg tablet 40 mg PO 4X/DAY 08/25/19 trimipramine 25 mg capsule 25 mg PO 4X/DAY 08/25/19 trimipramine 25 mg capsule 25 mg PO DAILY 08/25/19 verapamil 120 mg tablet,extended 120 mg PO DAILY 08/25/19 release vilazodone 20 mg tablet 20 mg PO BID 08/25/19 cyclobenzaprine 10 mg tablet 10 mg PO TID PRN #21 tab 11/03/19 Aspirin [Aspirin EC] 81 mg PO DAILY 08/11/20 Clopidogrel Bisulfate [Plavix] 75 mg PO DAILY 08/11/20 Omeprazole 40 mg PO DAILY 08/11/20 Surgical History: Surgical History (Last Updated 08/25/19 @ 14:23 by Larisa Kinney) H/O eye surgery Z98.890 H/O mastectomy Z90.10 Surgical History: - - Left lumpectomy. 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 Denies: Chills, Fever, Weight Change HEENT: Denies: Head Aches, Sinus Congestion, Sinus Drainage Cardiovascular: Denies: Chest Pain, Palpitations Respiratory: Denies: Cough, Shortness of breath at rest, Sputum production Gastrointestinal: Denies: Abdominal Pain, Nausea, Vomiting Genitourinary: Denies: Dysuria Musculoskeletal: Denies: Joint Pain, Joint Tenderness Skin: Denies: Rash, Wounds Neurological: Denies: Numbness, Tingling, Focal weakness Psychiatric: Denies: Anxiety, Depression, Homicidal Ideations, Suicidal Ideations Hematologic/ Lymphatic: Denies: Easy Bruising, Easy Bleeding VTE Information - Inpt Only VTE Present on Admission: No VTE Mechan Device Prophylaxis: Knee High LUZ MARINA Hose VTE Pharm Prophylaxis ordered?: No Reason prophylaxis not ordered:: Treatment Not Indicated - Physical Exam Vitals/I&O's: Vital Signs Temp Pulse Resp BP Pulse Ox 98.7 F 70 16 106/51 L 98 08/11/20 12:02 08/11/20 12:02 08/11/20 12:02 08/11/20 12:02 08/11/20 12:02 Oxygen Delivery Method Room Air Weight: 59.534 kg Body Mass Index (BMI) 27.4 General: Alert, Oriented x3, Cooperative HEENT: Atraumatic, PERRLA, EOMI, Normocephalic Neck: Supple, No JVD, Negative Carotid Bruits Lungs: Clear to auscultation, Normal air movement Cardiovascular: Regular rate, No murmurs Abdomen: Bowel Sounds Present, Soft, Non Tender Extremities: No edema, Capillary Refill Less than 3 Seconds Skin: No rashes, No breakdown Musculoskeletal: No Tenderness to Palpation of Joints or Extremities Neurological: Cranial nerves II-XII grossly intact, - - Right facial droop, left hemiparesis. Psych/Mental Status: Normal Affect, Appropriate Current Medications Albuterol Sulfate (Albuterol Sulfate 8 Gm Inhaler (60 Puffs)) 1 puff INHALATION 4X/DAY PRN PRN PRN Reason: Wheezing/SOB Alprazolam (Alprazolam 0.5 Mg Tablet) 1 mg PO 4X/DAY [facility] Aspirin (Aspirin E.C. 81 Mg Tablet) 81 mg PO DAILY@0800 [facility] Atorvastatin Calcium (Atorvastatin Calcium 40 Mg Tablet) 40 mg PO QHS [facility] Clopidogrel Bisulfate (Clopidogrel Bisulfate 75 Mg Tablet) 75 mg PO DAILY [facility] Imipramine HCl (Imipramine Hcl 25 Mg Tablet) 25 mg PO 4X/DAY [facility] Nutritional Formula (Lactose Free) (Ensure Enlive 120 Ml Liquid) 120 ml PO 4X/DAY [facility] Pantoprazole Sodium (Pantoprazole Sodium 40 Mg Tablet) 40 mg PO DAILY [facility] Potassium Chloride (Potassium Chloride 20 Meq Tablet) 20 meq PO TIDCM [facility] Propranolol HCl (Propranolol 40 Mg Tablet) 40 mg PO 4X/DAY [facility] Tuberculin PPD (Tuberculin,Purif.Prot.Deriv. 50 Tu/Ml Vial) 5 tu ID X1 ONE Stop: 08/12/20 10:01 Tuberculin PPD (Tuberculin,Purif.Prot.Deriv. 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 * Debility - PT/OT. * Dysphagia - ST. * Pain - Tylenol 1000MG Q6H PRN pain (1-10). * Bowel - Senna/colace 1 tablet BID, MOM 30ML daily PRN, Dulcolax 10MG IA daily PRN. * Adult immunization - Administer Prevnar 13, Pneumovax 23, Fluzone, COVID19 vaccine as appropriate. * DVT prophylaxis - Hold, already on dual antiplatelet therapy. * COPD - Ventolin 1 puff 4x/day. 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 * Right brainstem stroke - Aspirin 81MG, Plavix 75MG daily, MRA head/neck normal, EKG normal, order Echo. * Hyperlipidemia - Atorvastatin 40MG QHS. * GERD - Pantoprazole 40MG daily. * Hypokalemia - KCL 20MEQ TID. * Hypertension - Verapamil 120MG daily, Propranolol 40MG 4x/day. * Depression - Vilazodone 20MG BID, Imipramine 25MG 4x/day. * Urinary retention - Bladderscan 277ML, straight cath to empty, Rx Tamsulosin 0.4MG daily. * Muscle spasm - Baclofen 10MG TID PRN.
--- NOTE | 2020-08-11 15:08 | NURSING ---
Addendum entered by Yanique Capellan 08/11/20 15:30: Amount of money totalled $1139. Original Note: pt presented to unit with lr. Offered to have money locked up in hospital safe. This nurse and Arti Cristobal counted the money which totaled $1,339. Money taken to operators office to be secured in safe. Copy of paperwork placed in chart and copy provided to patient.
[2020-08-11] MEDS: Baclofen 10 MG Tablet PO (15:21)
--- NOTE | 2020-08-11 15:27 | CASEMGMT ---
Social Work Present with RN upon counting pt's money. Confirmed to have $1,139. Pt agreeable to provide money to impregnating machine operator to lock in safe during stay. Receipt provided to pt and placed in purse to present at DC to collect money. Graciela Tabor, SELF SEALING FUEL TANK BUILDER GUEST RELATIONS RECEPTIONIST
--- NOTE | 2020-08-11 15:30 | CASEMGMT ---
Social Work Discussed code status with pt. Pt confirmed full code. MOLST form reviewed, communication to , placed in chart. Graciela Tabor, EMERGENCY MANAGEMENT COORDINATOR MARKETING TEAM LEAD
[2020-08-11] MEDS: Tamsulosin HCl 0.4 MG Capsule PO (16:42)
[2020-08-11] MEDS: VILAZODONE HYDROCHLORIDE 10 MG TABLET 20 MG PO (16:42)
[2020-08-11] MEDS: Imipramine HCl 25 MG Tablet PO ×2 (16:42→20:40)
[2020-08-11] MEDS: Senna/Docusate Sodium 1 Tablet PO (16:42)
[2020-08-11] MEDS: ALPRAZolam 0.5 MG Tablet 1 MG PO ×2 (16:42→20:40)
[2020-08-11] MEDS: Propranolol 40 MG Tablet PO ×2 (16:43→20:40)
[2020-08-11] MEDS: Acetaminophen 500 MG Tablet 1000 MG PO (20:40)
[2020-08-12] MEDS: Senna/Docusate Sodium 1 Tablet PO ×2 (05:49→17:11)
[2020-08-12] MEDS: Imipramine HCl 25 MG Tablet PO ×4 (05:49→20:15)
[2020-08-12] MEDS: ALPRAZolam 0.5 MG Tablet 1 MG PO ×4 (05:49→20:15)
[2020-08-12] MEDS: Clopidogrel Bisulfate 75 MG Tablet PO (05:49)
[2020-08-12] MEDS: Pantoprazole Sodium 40 MG Tablet PO (05:49)
[2020-08-12] MEDS: Propranolol 40 MG Tablet PO ×4 (05:49→22:25)
[2020-08-12] MEDS: Verapamil SR 240 MG Tablet 120 MG PO (05:50)
[2020-08-12 05:56] VITALS: BP 121/71; PULSE 64; RESP 16; TEMP 36.5; O2SAT 95
[2020-08-12 07:10] LABS: Absolute Lymphocyte Count 3.33 X10^3/uL (0.83-4.51); Absolute Neutrophil Count 5.8 X10^3/uL (2.0-7.7); Basophil# 0.08 X10^3/uL; Basophil% 0.8 % (0-1); Eosinophil# 0.06 X10^3/uL; Eosinophils% 0.6 % (0-5); Hematocrit 35.1 % (37-47); Hemoglobin 11.1 g/dL (12.0-15.0); Lymphocyte # 3.33 X10^3/ul (4.0); Lymphocyte % 32.4 % (19-41); Mean Corp Hgb Conc 31.6 g/dL (32-36); Mean Corpuscular Hgb 29.9 pg (27.0-32.0); Mean Corpuscular Volume 94.6 fL (81-99); Mean Platelet Vol. 10.3 fl (6.2-12.0); Monocyte# 0.82 X10^3/uL; NRBC Flagged by Analyzer 0 % (0-5); Neutrophil # 5.79 X10^3/uL (2.7-7.7); Neutrophil % 56.2 % (47-70); Platelet Count 304 K/mm3 (150-450); RBC Distribution Width CV 14.9 % (11.6-14.6); RBC Distribution Width SD 51.9 fl (35.1-43.9); Red Blood Count 3.71 M/mm3 (4.2-5.4); White Blood Count 10.3 K/mm3 (4.4-11.0)
[2020-08-12 07:31] LABS: Anion Gap 6 (5-15); BUN 16 mg/dL (7-18); BUN/Creat Ratio 18.7 RATIO (10-20); Calcium,Total 8.8 mg/dL (8.5-10.1); Chloride 107 mmol/L (98-107); Creatinine, Serum 0.86 mg/dL (0.55-1.02); EST Glomerular Filtration Rate 69 mL/min (>60); Est Glom Filt Rate - Afr Amer 83 mL/min (>60); Estimated Creatinine Clearance 53.94 ml/min; Glucose 106 mg/dL (74-106); Potassium 3.6 mmol/L (3.5-5.1); Sodium Level 141 mmol/L (136-145)
[2020-08-12] MEDS: VILAZODONE HYDROCHLORIDE 10 MG TABLET 20 MG PO ×2 (08:45→17:10)
[2020-08-12] MEDS: Aspirin E.C. 81 MG Tablet PO (08:45)
[2020-08-12] MEDS: Tuberculin,Purif.prot.deriv. 50 TU/ML Vial 5 ML ID (11:58)
[2020-08-12] MEDS: Acetaminophen 500 MG Tablet 1000 MG PO ×2 (14:47→22:25)
[2020-08-12 15:38] VITALS: BP 112/56; PULSE 62; RESP 20; TEMP 36.2; O2SAT 96
[2020-08-12] MEDS: Magnesium Hydroxide 30 ML UDC PO (17:10)
[2020-08-12] MEDS: Tamsulosin HCl 0.4 MG Capsule PO (17:11)
[2020-08-12 20:21] VITALS: BP 123/53; PULSE 64; RESP 16; TEMP 35.7; O2SAT 97
[2020-08-12 21:30] VITALS: PULSE 64; RESP 16; O2SAT 97
[2020-08-13 04:00] VITALS: BP 117/51; PULSE 59; RESP 15; TEMP 36.3; O2SAT 95
[2020-08-13] MEDS: Propranolol 40 MG Tablet PO ×4 (05:55→21:28)
[2020-08-13] MEDS: Imipramine HCl 25 MG Tablet PO ×4 (05:55→21:29)
[2020-08-13] MEDS: Verapamil SR 240 MG Tablet 120 MG PO (05:55)
[2020-08-13] MEDS: Pantoprazole Sodium 40 MG Tablet PO (05:55)
[2020-08-13] MEDS: Clopidogrel Bisulfate 75 MG Tablet PO (05:55)
[2020-08-13] MEDS: Acetaminophen 500 MG Tablet 1000 MG PO ×2 (06:01→17:02)
[2020-08-13] MEDS: ALPRAZolam 0.5 MG Tablet 1 MG PO ×4 (06:08→21:28)
[2020-08-13] MEDS: Senna/Docusate Sodium 1 Tablet PO ×2 (06:11→17:04)
[2020-08-13] MEDS: Aspirin E.C. 81 MG Tablet PO (09:24)
[2020-08-13] MEDS: VILAZODONE HYDROCHLORIDE 10 MG TABLET 20 MG PO ×2 (09:25→17:03)
[2020-08-13 14:34] VITALS: BP 123/69; PULSE 66; RESP 14; TEMP 36.2; O2SAT 95
[2020-08-13] MEDS: Tamsulosin HCl 0.4 MG Capsule PO (17:04)
[2020-08-13] MEDS: Baclofen 10 MG Tablet PO (21:49)
[2020-08-13] MEDS: Atorvastatin Calcium 40 MG Tablet PO (21:49)
[2020-08-14 06:21] VITALS: BP 128/72; PULSE 64; RESP 16; TEMP 36.2; O2SAT 94
[2020-08-14] MEDS: Clopidogrel Bisulfate 75 MG Tablet PO (06:22)
[2020-08-14] MEDS: Verapamil SR 240 MG Tablet 120 MG PO (06:23)
[2020-08-14] MEDS: Imipramine HCl 25 MG Tablet PO ×4 (06:23→22:49)
[2020-08-14] MEDS: Pantoprazole Sodium 40 MG Tablet PO (06:23)
[2020-08-14] MEDS: Senna/Docusate Sodium 1 Tablet PO ×2 (06:23→17:18)
[2020-08-14] MEDS: Propranolol 40 MG Tablet PO ×4 (06:24→22:49)
[2020-08-14] MEDS: ALPRAZolam 0.5 MG Tablet 1 MG PO ×4 (06:25→22:49)
[2020-08-14] MEDS: Aspirin E.C. 81 MG Tablet PO (08:27)
[2020-08-14] MEDS: VILAZODONE HYDROCHLORIDE 10 MG TABLET 20 MG PO ×2 (08:27→17:18)
--- NOTE | 2020-08-14 14:20 | PHA.CONS_ITS ---
<CarmineRuth Ann M - Last Filed: 08/14/20 14:20> Progress Note - Pharmacy Subjective: TCU ADMISSION Objective: Allergies acetaminophen [From Darvocet-N] Allergy (Verified 08/25/19 14:14) swelling codeine Allergy (Verified 08/25/19 14:13) swelling Iodinated Contrast Media Allergy (Verified 08/25/19 14:13) swelling iodine Allergy (Verified 08/25/19 14:13) swelling meperidine [From Demerol] Allergy (Verified 08/25/19 14:14) heart stop morphine Allergy (Verified 08/25/19 14:13) swelling propoxyphene [From Darvocet-N] Allergy (Verified 08/25/19 14:13) heart stop Current Medications Generic Name Dose Route Start Last Admin Trade Name Freq PRN Reason Stop Dose Admin Acetaminophen 1,000 mg 08/11/20 14:35 08/13/20 17:02 Acetaminophen 500 Mg Tablet PO 1,000 mg Q6H PRN Administration Pain Score 1-10 Albuterol Sulfate 1 puff 08/11/20 12:20 Albuterol Sulfate 8 Gm Inhaler (60 Puffs) INHALATION 4X/DAY PRN PRN Wheezing/SOB Alprazolam 1 mg 08/11/20 17:00 08/14/20 11:40 Alprazolam 0.5 Mg Tablet PO 1 mg 4X/DAY [facility] Administration Aspirin 81 mg 08/12/20 08:00 08/14/20 08:27 Aspirin E.C. 81 Mg Tablet PO 81 mg DAILY@0800 [facility] Administration Atorvastatin Calcium 40 mg 08/11/20 22:00 08/13/20 21:49 Atorvastatin Calcium 40 Mg Tablet PO 40 mg QHS [facility] Administration Baclofen 10 mg 08/11/20 14:36 08/13/20 21:49 Baclofen 10 Mg Tablet PO 10 mg TID PRN Administration MUSCLE SPASM Bisacodyl 10 mg 08/11/20 14:36 Bisacodyl 10 Mg Suppository RECTAL DAILY PRN Constipation Clopidogrel Bisulfate 75 mg 08/12/20 06:00 08/14/20 06:22 Clopidogrel Bisulfate 75 Mg Tablet PO 75 mg DAILY [facility] Administration Imipramine HCl 25 mg 08/11/20 17:00 08/14/20 11:41 Imipramine Hcl 25 Mg Tablet PO 25 mg 4X/DAY [facility] Administration Magnesium Hydroxide 30 ml 08/11/20 14:35 08/12/20 17:10 Magnesium Hydroxide 30 Ml Udc PO 30 ml DAILY PRN Administration Constipation Pantoprazole Sodium 40 mg 08/12/20 06:00 08/14/20 06:23 Pantoprazole Sodium 40 Mg Tablet PO 40 mg DAILY [facility] Administration Potassium Chloride 20 meq 08/11/20 12:45 08/14/20 11:41 Potassium Chloride 20 Meq Tablet PO 20 meq TIDCM [facility] Administration Propranolol HCl 40 mg 08/11/20 17:00 08/14/20 11:41 Propranolol 40 Mg Tablet PO 40 mg 4X/DAY [facility] Administration Senna/Docusate Sodium 1 tablet 08/11/20 18:00 08/14/20 06:23 Senna/Docusate Sodium 1 Tablet PO 1 tablet BID [facility] Administration Tamsulosin HCl 0.4 mg 08/11/20 17:30 08/13/20 17:04 Tamsulosin Hcl 0.4 Mg Capsule PO 0.4 mg DAILY@1730 [facility] Administration Tuberculin PPD 5 tu 08/19/20 10:00 Tuberculin,Purif.Prot.Deriv. 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 (Acute) Left hemiparesis (Acute) Facial droop due to stroke (Acute) Dysphagia (Acute) Muscle spasm (Acute) Chronic obstructive pulmonary disease (Chronic) Tobacco abuse (Chronic) Hypertension (Chronic) Hyperlipidemia (Chronic) GERD (gastroesophageal reflux disease) (Chronic) Hypokalemia (Chronic) Depression (Chronic) Anxiety (Chronic) Vital Signs Temp Pulse Resp BP Pulse Ox 97.2 F L 64 16 128/72 H 94 08/14/20 06:21 08/14/20 06:21 08/14/20 06:21 08/14/20 06:21 08/14/20 06:21 Oxygen Delivery Method Room Air Weight: 59.534 kg Body Mass Index (BMI) 27.4 Sodium 141 mmol/L (136-145) 08/12/20 06:46 Potassium 3.6 mmol/L (3.5-5.1) 08/12/20 06:46 Chloride 107 mmol/L (98-107) 08/12/20 06:46 Carbon Dioxide 28.0 mmol/L (21.0-32.0) 08/12/20 06:46 Anion Gap 6 (5-15) 08/12/20 06:46 BUN 16 mg/dL (7-18) 08/12/20 06:46 Creatinine 0.86 mg/dL (0.55-1.02) 08/12/20 06:46 Est GFR (MDRD) Af Amer 83 mL/min (>60) 08/12/20 06:46 Est GFR (MDRD) Non-Af 69 mL/min (>60) 08/12/20 06:46 BUN/Creatinine Ratio 18.7 RATIO (10-20) 08/12/20 06:46 Glucose 106 mg/dL (74-106) 08/12/20 06:46 Assessment/Plan: 1. Pain: Tylenol 1000mg PO Q6h PRN pain 1-10. Please continue to monitor for S/S increased/decreased pain, PRN medication usage. 2. Stroke: Aspirin 81mg PO Daily, Plavix 75mg PO Daily, Lipitor 40mg PO QHS. Please continue to monitor for S/S bleeding/bruising, lipid panel annually or sooner if clinically indicated, S/S recurrent stroke. 3. HTN: Propranolol 40mg PO 4x/day, Verapamil 120mg PO Daily. Please continue to monitor BP, pulse. 4. Urinary Retention: Flomax 0.4mg PO Daily. Please continue to monitor for u rinary retention, improvement in symptoms. 5. COPD: Ventolin HFA 1 puff INH 4x/day PRN. Please continue to monitor for S/S COPD exacerbation, PRN medication usage. 6. Muscle spasm: Baclofen 10mg PO TID PRN. Please continue to monitor for dizziness, confusion, PRN medication usage, medication effectiveness. 7. GERD: Protonix 40mg PO Daily. Please continue to monitor for S/S GERD exacerbations. May also encourage non-pharmacologic interventions to decrease the rate of exacerbations as well. 8. Hypokalemia: KCl 20mEq PO TID. Please continue to monitor K+ levels (last 3.6 on 08/12). 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 * Depression - Vilazodone 20MG BID, Imipramine 25MG 4x/day. Psychotropic Medications: 9. Anxiety: Xanax 1mg PO 4x/day. Please see H/P regarding GDR recommendation. *10. Depression: Vilazodone 20mg PO BID, Imipramine 25mg PO 4x/day. Please evaluate use of imipramine, this is a Beer's Criteria medication, thank you. Please also consider a GDR by 02/07 if clinically appropriate, thank you. Unnecessary Medications: None Bowel Regimen: Senna/Docusate 1 tab PO BID, Dulcolax 10mg MS Daily PRN, MOM 30mL PO daily PRN. Please continue to monitor for S/S increased/decreased constipation and/or diarrhea. Date of Note:: 08/14/20 - Provider Comments Provider responsibility: Provider responsible to enter orders to implement recommendations <Partha Batres Chi - Last Filed: 08/14/20 16:43> Progress Note - Pharmacy Subjective: [] Objective: Allergies acetaminophen [From Darvocet-N] Allergy (Verified 08/25/19 14:14) swelling codeine Allergy (Verified 08/25/19 14:13) swelling Iodinated Contrast Media Allergy (Verified 08/25/19 14:13) swelling iodine Allergy (Verified 08/25/19 14:13) swelling meperidine [From Demerol] Allergy (Verified 08/25/19 14:14) heart stop morphine Allergy (Verified 08/25/19 14:13) swelling propoxyphene [From Darvocet-N] Allergy (Verified 08/25/19 14:13) heart stop Current Medications Generic Name Dose Route Start Last Admin Trade Name Freq PRN Reason Stop Dose Admin Acetaminophen 1,000 mg 08/11/20 14:35 08/13/20 17:02 Acetaminophen 500 Mg Tablet PO 1,000 mg Q6H PRN Administration Pain Score 1-10 Albuterol Sulfate 1 puff 08/11/20 12:20 Albuterol Sulfate 8 Gm Inhaler (60 Puffs) INHALATION 4X/DAY PRN PRN Wheezing/SOB Alprazolam 1 mg 08/11/20 17:00 08/14/20 11:40 Alprazolam 0.5 Mg Tablet PO 1 mg 4X/DAY [facility] Administration Aspirin 81 mg 08/12/20 08:00 08/14/20 08:27 Aspirin E.C. 81 Mg Tablet PO 81 mg DAILY@0800 [facility] Administration Atorvastatin Calcium 40 mg 08/11/20 22:00 08/13/20 21:49 Atorvastatin Calcium 40 Mg Tablet PO 40 mg QHS [facility] Administration Baclofen 10 mg 08/11/20 14:36 08/13/20 21:49 Baclofen 10 Mg Tablet PO 10 mg TID PRN Administration MUSCLE SPASM Bisacodyl 10 mg 08/11/20 14:36 Bisacodyl 10 Mg Suppository RECTAL DAILY PRN Constipation Clopidogrel Bisulfate 75 mg 08/12/20 06:00 08/14/20 06:22 Clopidogrel Bisulfate 75 Mg Tablet PO 75 mg DAILY [facility] Administration Imipramine HCl 25 mg 08/11/20 17:00 08/14/20 11:41 Imipramine Hcl 25 Mg Tablet PO 25 mg 4X/DAY [facility] Administration Magnesium Hydroxide 30 ml 08/11/20 14:35 08/12/20 17:10 Magnesium Hydroxide 30 Ml Udc PO 30 ml DAILY PRN Administration Constipation Pantoprazole Sodium 40 mg 08/12/20 06:00 08/14/20 06:23 Pantoprazole Sodium 40 Mg Tablet PO 40 mg DAILY [facility] Administration Potassium Chloride 20 meq 08/11/20 12:45 08/14/20 11:41 Potassium Chloride 20 Meq Tablet PO 20 meq TIDCM [facility] Administration Propranolol HCl 40 mg 08/11/20 17:00 08/14/20 11:41 Propranolol 40 Mg Tablet PO 40 mg 4X/DAY [facility] Administration Senna/Docusate Sodium 1 tablet 08/11/20 18:00 08/14/20 06:23 Senna/Docusate Sodium 1 Tablet PO 1 tablet BID [facility] Administration Tamsulosin HCl 0.4 mg 08/11/20 17:30 08/13/20 17:04 Tamsulosin Hcl 0.4 Mg Capsule PO 0.4 mg DAILY@1730 [facility] Administration Tuberculin PPD 5 tu 08/19/20 10:00 Tuberculin,Purif.Prot.Deriv. 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 (Acute) Left hemiparesis (Acute) Facial droop due to stroke (Acute) Dysphagia (Acute) Muscle spasm (Acute) Chronic obstructive pulmonary disease (Chronic) Tobacco abuse (Chronic) Hypertension (Chronic) Hyperlipidemia (Chronic) GERD (gastroesophageal reflux disease) (Chronic) Hypokalemia (Chronic) Depression (Chronic) Anxiety (Chronic) Vital Signs Temp Pulse Resp BP Pulse Ox 96.9 F L 63 20 H 115/67 96 08/14/20 15:32 08/14/20 15:32 08/14/20 15:32 08/14/20 15:32 08/14/20 15:32 Oxygen Delivery Method Room Air Weight: 59.534 kg Body Mass Index (BMI) 27.4 Sodium 141 mmol/L (136-145) 08/12/20 06:46 Potassium 3.6 mmol/L (3.5-5.1) 08/12/20 06:46 Chloride 107 mmol/L (98-107) 08/12/20 06:46 Carbon Dioxide 28.0 mmol/L (21.0-32.0) 08/12/20 06:46 Anion Gap 6 (5-15) 08/12/20 06:46 BUN 16 mg/dL (7-18) 08/12/20 06:46 Creatinine 0.86 mg/dL (0.55-1.02) 08/12/20 06:46 Est GFR (MDRD) Af Amer 83 mL/min (>60) 08/12/20 06:46 Est GFR (MDRD) Non-Af 69 mL/min (>60) 08/12/20 06:46 BUN/Creatinine Ratio 18.7 RATIO (10-20) 08/12/20 06:46 Glucose 106 mg/dL (74-106) 08/12/20 06:46 Assessment/Plan: Psychotropic Medications: Unnecessary Medications: Bowel Regimen: - Provider Comments Provider responsibility: Provider responsible to enter orders to implement recommendations Provider Comments to Recommendations by Pharmacy: Agree
[2020-08-14 15:14] LABS: Bacteria 0 SEEN /hpf (None Seen); Mucous, Urine 0 SEEN /hpf (<or=2+); Red Blood Cells-Urine 0 SEEN /hpf (0-5); Squamous Epithelial Cells - UA 0 SEEN /hpf (5-10); White Blood Cells 0 SEEN /hpf (0-5)
[2020-08-14 15:21] LABS: Color, Urine Yellow (Yellow); Glucose, Dipstick Normal (Normal); Ketone-Dipstick Negative (Negative); Leukocyte Esterase-Dipstick 25 /ul (Negative); Nitrite-Dipstick Negative (Negative); Occult Blood-Urine Negative /ul (Negative); Protein-Dipstick Negative (Negative); Urine Bilirubin Dipstick Negative (Negative); Urine Clarity Clear (Clear); Urine Urobilinogen Normal (Normal)
[2020-08-14 15:32] VITALS: BP 115/67; PULSE 63; RESP 20; TEMP 36.1; O2SAT 96
[2020-08-14 15:59] LABS: Amorphous Sediment 1+
[2020-08-14] MEDS: Tamsulosin HCl 0.4 MG Capsule PO (17:18)
[2020-08-14] MEDS: Atorvastatin Calcium 40 MG Tablet PO (22:49)
[2020-08-14] MEDS: Acetaminophen 500 MG Tablet 1000 MG PO (22:55)
[2020-08-15] MEDS: Verapamil SR 240 MG Tablet 120 MG PO (05:47)
[2020-08-15] MEDS: Propranolol 40 MG Tablet PO ×4 (05:48→20:46)
[2020-08-15] MEDS: Senna/Docusate Sodium 1 Tablet PO ×2 (05:49→17:05)
[2020-08-15] MEDS: Pantoprazole Sodium 40 MG Tablet PO (05:49)
[2020-08-15] MEDS: Imipramine HCl 25 MG Tablet PO ×4 (05:49→20:45)
[2020-08-15] MEDS: ALPRAZolam 0.5 MG Tablet 1 MG PO ×4 (05:49→20:44)
[2020-08-15] MEDS: Clopidogrel Bisulfate 75 MG Tablet PO (05:49)
[2020-08-15 05:58] VITALS: BP 111/56; PULSE 64; RESP 16; TEMP 35.9; O2SAT 97
[2020-08-15] MEDS: Aspirin E.C. 81 MG Tablet PO (08:31)
[2020-08-15] MEDS: VILAZODONE HYDROCHLORIDE 10 MG TABLET 20 MG PO ×2 (08:31→17:03)
[2020-08-15 12:37] VITALS: RESP 18; O2SAT 98
[2020-08-15 13:26] VITALS: BP 130/74; PULSE 63; RESP 18; TEMP 36.2; O2SAT 98
[2020-08-15] MEDS: Tamsulosin HCl 0.4 MG Capsule PO (17:05)
[2020-08-15 17:10] VITALS: BP 122/74; PULSE 60
[2020-08-15] MEDS: Acetaminophen 500 MG Tablet 1000 MG PO (20:09)
[2020-08-15] MEDS: Atorvastatin Calcium 40 MG Tablet PO (20:45)
--- NOTE | 2020-08-15 23:58 | PCA ---
Addendum entered by Sissy Hernandez 08/16/20 00:19: Talked to the son Isiah who wanted updates on his mom. His mom had called him and told him that staff was not answering call lights. Explained to Isiah that patient's light was never put on for assistance. Isiah states that he understands completely and that his mom sometimes gets confused since she had the stroke. States that he is really appreciative of what the staff has done for his mom and that we shouldn't take anything she says to heart. Isiah states that patient wants to come home, but him and his dad know that she needs to stay there so she can get stronger. Original Note: this sap manager was walking down the hallway and looked into pt's room and seen that she had her legs hanging out of her bed.I went in her room to see what she was doing and she stated that she has rang her light and no one had came to answer it.She said that she was ring the lights on the bed rails and I told her that the ones on the rails don't work and she said will if you don't want to take care of me then I am telling my .Me and the other sap manager put her on the BSC then when she was done we showed her were and what call light to use to get help.
[2020-08-16] MEDS: ALPRAZolam 0.5 MG Tablet 1 MG PO ×4 (06:22→20:34)
[2020-08-16] MEDS: Pantoprazole Sodium 40 MG Tablet PO (06:23)
[2020-08-16] MEDS: Verapamil SR 240 MG Tablet 120 MG PO (06:24)
[2020-08-16] MEDS: Propranolol 40 MG Tablet PO ×4 (06:24→20:38)
[2020-08-16] MEDS: Imipramine HCl 25 MG Tablet PO ×4 (06:24→20:37)
[2020-08-16] MEDS: Senna/Docusate Sodium 1 Tablet PO ×2 (06:25→17:32)
[2020-08-16] MEDS: Clopidogrel Bisulfate 75 MG Tablet PO (06:27)
--- NOTE | 2020-08-16 06:42 | PCA ---
pt's bed alarm was sounding, KAVON Sheehan and i went to check on pt, pt had her bottom half assisted out of the bed stating that she was soiled, we reminded pt the importance of ringing her call light. pt stated i cannot find it, i have been back here evelio. this aide apologized to pt and said i did not hear anyone evelio. pt stated that is what they all say KAVON Sheehan and i got pt to the bedside commode, cleaned up and back into bed. gave pt her call light and reminded her how important it was to ring out and to stay in bed.
[2020-08-16] MEDS: Aspirin E.C. 81 MG Tablet PO (08:24)
[2020-08-16] MEDS: VILAZODONE HYDROCHLORIDE 10 MG TABLET 20 MG PO ×2 (08:24→17:31)
[2020-08-16 10:43] VITALS: PULSE 69; RESP 18; O2SAT 100
[2020-08-16 13:19] VITALS: BP 106/53; PULSE 66; RESP 18; TEMP 36.3; O2SAT 94
--- NOTE | 2020-08-16 15:01 | NURSING ---
Called to update family left a message with .
--- NOTE | 2020-08-16 15:50 | CASEMGMT ---
Social Work IDT met with patient and via conference call for care plan meeting. Discussed patient's progress in therapy and nursing. See notes for details. ST working on memory and swallowing with pt. MBS scheduled for this date. Working on memory strategies and recommending assistance with meds/finances at DC. Nursing reported increased confusion and poor historian and pt unable to comprehend the correct amount of time that has elapsed. Pts intake/appetite varies. Pt is out of isolation 2/5. Explained Medicare benefit. Pt has 4 steps to enter. The goal is for pt to return home with and son at [facility]. SW to continue to follow to assist with DC planning. Graciela Tabor, EQUIPMENT TECH MOLD WORKER
--- NOTE | 2020-08-16 16:29 | CHAPLAIN ---
Type of Pastoral Visit _x__ Initial Visit ___ Follow-up Visit ___ On-call Visit ___ General Patient Visit ___ Spiritual Assessment ___ Family Conference ___ Bereavement ___ Rapid Response ___ Code Blue ___ Other (describe below) Pastoral Care Referral From _x__ Patient ___ Family ___ Nurse ___ Physician ___ Supervisor Felting ___ Zipper Machine Operator ___ Other (describe below) Sacrament/Intervention _x__ Active listening ___ Anointing ___ Gnosticist ___ Bereavement ___ Communion _x__ Deirdre exploration ___ _x__ Life review _x__ Prayer ___ Reconciliation ___ Sacrament of Sick _x__ Supportive presence ___ Wedding ___ Other (describe below) Pastoral Comments patient is very talkative and gives lots of life review and expresses her belief views; pt identifies as a Taoism Baptism and states her belief that God has a time for you to and no one can change that; pt welcomes visits and prayers of auditor medical claims
[2020-08-16] MEDS: Tamsulosin HCl 0.4 MG Capsule PO (17:31)
--- NOTE | 2020-08-16 17:43 | ST.MBS ---
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 - Penetration-Aspiration Scale Penetration-Aspiration Scale: OBJECTIVE ASSESSMENT OF SWALLOW FUNCTION (QUANTITATIVE ? PER TRIAL): PENETRATION / ASPIRATION SCALE (WILDE): 1 = does not enter airway 2 = enters airway/above vocal folds/ejected 3 = enters airway/above vocal folds/not ejected 4 = enters airway/contacts vocal folds/ejected 5 = enters airway/contacts vocal folds/not ejected 6 = enters airway/below vocal folds/ejected 7 = enters airway/below vocal folds/not ejected despite effort 8 = enters airway/below vocal folds/no effort PENETRATION / ASPIRATION SCALE (SCORE): Thin liquid - 5 mL tsp.: 1 Thin liquids via cup: 2 Thin liquids via cup: 2 Thin liquids via cup: 3 Thin liquids via cup (sequential): 3 Pudding via spoon: 1 Solid textures: 1 Thin liquids via straw (sequential): 2 Thin liquids via straw (chin tuck): 2 Thin liquids via straw (chin tuck): 2 Thin liquids via straw (chin tuck): 1 [place] thickened liquids via straw: 1 [place] thickened liquids via straw: 2 [place] thickened liquids via straw: 2 - Oral Phase Labial Seal: No Labial Escape Tongue Control During Bolus Hold: Escape to lateral buccal cavity/floor of mouth Bolus Preparation/Mastication: Timely and efficient chewing and mashing Bolus Transport/Lingual Motion: Brisk tongue motion Oral Residue: Residue collection on oral structures - Pharyngeal Phase Initiation of Pharyngeal Swallow: Bolus head in pyriforms Soft Palate Elevation: No bolus between soft palate and pharyngeal wall Laryngeal Elevation: Partial superior movement thyroid cart/partial apprx aryt-epig petiole Anterior Hyoid Excursion: Partial anterior movement Epiglottic Movement: Partial inversion Laryngeal Vestibule Closure at Height of Swallow: Incomplete; narrow column of air/contrast in laryngeal vestibule Pharyngeal Stripping Wave: Present - complete Pharyngoesophageal Segment Opening: Parital distension and partial duration; parital obstruction of flow Tongue Base Retraction: Trace column of contrast between tongue base & post. pharyngeal wall Pharyngeal Residue: Trace residue within or on pharyngeal structures - Diagnosis/Impression Diagnosis: Dysphagia (R13.12) Impression: The patient presents with mild to moderate oropharyngeal dysphagia (DSRS: 3) with shallow penetration and inconsistent ejection of liquid viscosities secondary to a recent left brainstem infarction. Her swallow profile is marked by rather consistent pharyngeal phase delay / dyssynchrony resulting in prandial and pre-prandial penetration of thin and nectar thickened liquids, in addition to a reduction in hyolaryngeal excursion, with inconsistent laryngeal vestibule pressure generated to expel penetrated material. Overall appropriate pharyngeal motility. There is no discernable difference regarding tolerance of thin vs. thickened liquids, with a modest improvement in tolerance appreciated with thin liquid ingestion with execution of the chin tuck posture. There is a small non-obstructing cricopharyngeal bar located at the C-5 C-6 level. - Recommendations Comment: DIET TEXTURE RECOMMENDATIONS: soft bite sized textures (IDDSI: 6), thin liquid (IDDSI: 0) diet RECOMMENDED COMPENSATORY STRATEGIES: supervision with assistance as needed, chin tuck execution via straw with liquid viscosities, cut solid textures into bite sized pieces (1.5 x 1.5 cm), reduced bolus volume, seated upright at 90 degrees during PO intake, remain upright for 30-60 minutes post meal (GERD precaution) Need for Skilled Speech Therapy Services: Yes Education Completed: 1. Described result of evaluation., 4. Family/caregivers understand evaluation & agree w/ goals & tx plan., 7. Pt requires further education on strategies & risks. - Status Active ST Patient: Active
--- NOTE | 2020-08-16 17:47 | ST ---
[facility] [place] this date, with results as follows: RESULTS OF THE EVALUATION: The patient presents with mild to moderate oropharyngeal dysphagia (DSRS: 3) with shallow penetration and inconsistent ejection of liquid viscosities secondary to a recent left brainstem infarction. Her swallow profile is marked by rather consistent pharyngeal phase delay / dyssynchrony resulting in prandial and pre-prandial penetration of thin and nectar thickened liquids, in addition to a reduction in hyolaryngeal excursion, with inconsistent laryngeal vestibule pressure generated to expel penetrated material. Overall appropriate pharyngeal motility. There is no discernable difference regarding tolerance of thin vs. thickened liquids, with a modest improvement in tolerance appreciated with thin liquid ingestion with execution of the chin tuck posture. There is a small non-obstructing cricopharyngeal bar located at the C-5 C-6 level. DIET TEXTURE RECOMMENDATIONS: soft bite sized textures (IDDSI: 6), thin liquid (IDDSI: 0) diet RECOMMENDED COMPENSATORY STRATEGIES: supervision with assistance as needed, chin tuck execution via straw with liquid viscosities, cut solid textures into bite sized pieces (1.5 x 1.5 cm), reduced bolus volume, seated upright at 90 degrees during PO intake, remain upright for 30-60 minutes post meal (GERD precaution) Isiah Andrews M.A., CCC-PAINTER AND DECORATOR, CBIS MBSImP Certified, LSVT Certified [facility] Speech-Language Pathology Department Email: [email or web address]
[2020-08-16] MEDS: Furosemide 20 MG Tablet PO (18:27)
[2020-08-16] MEDS: Acetaminophen 500 MG Tablet 1000 MG PO (20:36)
[2020-08-16] MEDS: Atorvastatin Calcium 40 MG Tablet PO (20:37)
[2020-08-16] MEDS: Baclofen 10 MG Tablet PO (22:33)
[2020-08-17 05:07] VITALS: BP 132/72; PULSE 69; RESP 16; TEMP 37; O2SAT 95
[2020-08-17] MEDS: ALPRAZolam 0.5 MG Tablet 1 MG PO ×4 (05:08→21:56)
[2020-08-17] MEDS: Furosemide 20 MG Tablet PO (05:09)
[2020-08-17] MEDS: Pantoprazole Sodium 40 MG Tablet PO (05:09)
[2020-08-17] MEDS: Senna/Docusate Sodium 1 Tablet PO ×2 (05:09→17:54)
[2020-08-17] MEDS: Verapamil SR 240 MG Tablet 120 MG PO (05:09)
[2020-08-17] MEDS: Clopidogrel Bisulfate 75 MG Tablet PO (05:09)
[2020-08-17] MEDS: Propranolol 40 MG Tablet PO ×4 (05:11→21:56)
[2020-08-17] MEDS: Imipramine HCl 25 MG Tablet PO ×4 (05:11→21:56)
[2020-08-17] MEDS: Aspirin E.C. 81 MG Tablet PO (07:57)
[2020-08-17] MEDS: VILAZODONE HYDROCHLORIDE 10 MG TABLET 20 MG PO ×2 (07:58→17:53)
[2020-08-17] MEDS: Acetaminophen 500 MG Tablet 1000 MG PO (11:30)
[2020-08-17 14:53] VITALS: BP 109/54; PULSE 59; RESP 16; TEMP 35.6; O2SAT 95
[2020-08-17] MEDS: Tamsulosin HCl 0.4 MG Capsule PO (18:00)
--- NOTE | 2020-08-17 20:22 | NURSING ---
This nurse and other HIGH VALUE ASSOCIATE heard patients alarm sounding. Went into patient's room and found patient in bed rolled on right side with her right arm stuck in the bed rail. This Nurse and other HIGH VALUE ASSOCIATE were able to free arm after two attempts. Patient's right arm around AC red and starting to bruise. RN aware of situation.
[2020-08-17] MEDS: Atorvastatin Calcium 40 MG Tablet PO (21:56)
[2020-08-18 04:00] VITALS: BP 101/46; PULSE 62; RESP 16; TEMP 36.9; O2SAT 95
[2020-08-18] MEDS: ALPRAZolam 0.5 MG Tablet 1 MG PO ×4 (04:18→21:01)
[2020-08-18] MEDS: Propranolol 40 MG Tablet PO ×4 (04:19→21:02)
[2020-08-18] MEDS: Senna/Docusate Sodium 1 Tablet PO ×2 (04:19→16:41)
[2020-08-18] MEDS: Imipramine HCl 25 MG Tablet PO ×4 (04:19→21:06)
[2020-08-18] MEDS: Pantoprazole Sodium 40 MG Tablet PO (04:19)
[2020-08-18] MEDS: Verapamil SR 240 MG Tablet 120 MG PO (04:19)
[2020-08-18] MEDS: Furosemide 20 MG Tablet PO (04:20)
[2020-08-18] MEDS: Clopidogrel Bisulfate 75 MG Tablet PO (04:21)
[2020-08-18 06:00] LABS: Anion Gap 4 (5-15); BUN 14 mg/dL (7-18); BUN/Creat Ratio 15.3 RATIO (10-20); Calcium,Total 8.3 mg/dL (8.5-10.1); Chloride 109 mmol/L (98-107); Creatinine, Serum 0.92 mg/dL (0.55-1.02); EST Glomerular Filtration Rate 64 mL/min (>60); Est Glom Filt Rate - Afr Amer 77 mL/min (>60); Estimated Creatinine Clearance 50.75 ml/min; Glucose 91 mg/dL (74-106); Potassium 4.2 mmol/L (3.5-5.1); Sodium Level 141 mmol/L (136-145)
[2020-08-18] MEDS: VILAZODONE HYDROCHLORIDE 10 MG TABLET 20 MG PO ×2 (08:15→16:40)
[2020-08-18] MEDS: Aspirin E.C. 81 MG Tablet PO (08:15)
[2020-08-18 12:51] VITALS: BP 107/55; PULSE 60; RESP 16; TEMP 36.4; O2SAT 94
[2020-08-18] MEDS: Tamsulosin HCl 0.4 MG Capsule PO (16:42)
--- NOTE | 2020-08-18 17:57 | NURSING ---
R' REPORTED TO RESIDENTIAL PROPERTY TAX APPRAISER THAT THIS NURSE SAID TO HER IF YOU KEEP TAKING THIS MEDICATION IT'S GETTING TAKEN AWAY AND YOU WON'T BE A PATIENT HERE ANYMORE! (REFERRING TO XANAX). R' THEN CALLED HER AND TOLD HIM THESE THINGS AND TO COME AND GET HER. SPOKE WITH R' AND ASSURED HER THAT THIS NURSE DID NOT SAY THOSE THINGS. ALL THAT WAS SAID WAS HERE IS YOUR XANAX AND EVENING MEDICATIONS. R' CONTINUED TO ACCUSE THIS NURSE OF NOT LIKING HER AND TRYING TO TAKE HER XANAX AND DISCHARGE HER. EXPLAINED THAT A NURSE DOES NOT HAVE THE AUTHORITY TO DISCHARGE PATIENTS AND THAT WHAT SHE WAS ACCUSING OF WASN'T SAID OR TRUE. 1:1 GIVEN BUT R' STILL UPSET.
[2020-08-18] MEDS: Atorvastatin Calcium 40 MG Tablet PO (21:01)
[2020-08-19 04:00] VITALS: BP 125/51; PULSE 63; RESP 18; TEMP 36.6; O2SAT 97
[2020-08-19] MEDS: ALPRAZolam 0.5 MG Tablet 1 MG PO ×4 (04:23→21:34)
[2020-08-19] MEDS: Imipramine HCl 25 MG Tablet PO ×4 (04:23→21:35)
[2020-08-19] MEDS: Propranolol 40 MG Tablet PO ×4 (04:23→21:35)
[2020-08-19] MEDS: Verapamil SR 240 MG Tablet 120 MG PO (04:23)
[2020-08-19] MEDS: Pantoprazole Sodium 40 MG Tablet PO (04:24)
[2020-08-19] MEDS: Furosemide 20 MG Tablet PO (04:24)
[2020-08-19] MEDS: Senna/Docusate Sodium 1 Tablet PO ×2 (04:24→16:48)
[2020-08-19] MEDS: Clopidogrel Bisulfate 75 MG Tablet PO (04:24)
[2020-08-19 06:21] LABS: Absolute Lymphocyte Count 2.69 X10^3/uL (0.83-4.51); Absolute Neutrophil Count 5.6 X10^3/uL (2.0-7.7); Basophil# 0.03 X10^3/uL; Basophil% 0.3 % (0-1); Eosinophil# 0.06 X10^3/uL; Eosinophils% 0.6 % (0-5); Hematocrit 32.7 % (37-47); Hemoglobin 10.1 g/dL (12.0-15.0); Lymphocyte # 2.69 X10^3/ul (4.0); Lymphocyte % 28.2 % (19-41); Mean Corp Hgb Conc 30.9 g/dL (32-36); Mean Corpuscular Hgb 29.6 pg (27.0-32.0); Mean Corpuscular Volume 95.9 fL (81-99); Mean Platelet Vol. 10.6 fl (6.2-12.0); Monocyte# 0.88 X10^3/uL; Monocyte% 9.2 % (0-10); NRBC Flagged by Analyzer 0 % (0-5); Neutrophil % 58.7 % (47-70); Platelet Count 291 K/mm3 (150-450); RBC Distribution Width CV 15.1 % (11.6-14.6); RBC Distribution Width SD 53.2 fl (35.1-43.9); Red Blood Count 3.41 M/mm3 (4.2-5.4); White Blood Count 9.6 K/mm3 (4.4-11.0)
[2020-08-19 06:53] LABS: Anion Gap 4 (5-15); BUN 16 mg/dL (7-18); BUN/Creat Ratio 17.6 RATIO (10-20); Calcium,Total 8.6 mg/dL (8.5-10.1); Chloride 109 mmol/L (98-107); Creatinine, Serum 0.91 mg/dL (0.55-1.02); EST Glomerular Filtration Rate 64 mL/min (>60); Est Glom Filt Rate - Afr Amer 78 mL/min (>60); Estimated Creatinine Clearance 51.31 ml/min; Glucose 101 mg/dL (74-106); Sodium Level 140 mmol/L (136-145)
[2020-08-19] MEDS: Aspirin E.C. 81 MG Tablet PO (08:38)
[2020-08-19] MEDS: VILAZODONE HYDROCHLORIDE 10 MG TABLET 20 MG PO ×2 (08:39→16:47)
[2020-08-19] MEDS: Tuberculin,Purif.prot.deriv. 50 TU/ML Vial 5 ML ID (10:19)
[2020-08-19 14:04] VITALS: BP 129/64; PULSE 56; RESP 18; TEMP 36.2; O2SAT 96
--- NOTE | 2020-08-19 14:12 | NURSING ---
Pt stated that one of the aids called her today and they told her that she was having a good day. Pt stated i don't want anyone contacting my to tell him anything about me. Told pt I understand but none of us have been in contact with her today but we would respect her wishes and not update .
[2020-08-19] MEDS: Tamsulosin HCl 0.4 MG Capsule PO (16:47)
[2020-08-19] MEDS: Acetaminophen 500 MG Tablet 1000 MG PO (21:34)
[2020-08-19] MEDS: Atorvastatin Calcium 40 MG Tablet PO (21:36)
[2020-08-20 04:26] VITALS: BP 113/58; PULSE 66; RESP 16; TEMP 35.5; O2SAT 95
[2020-08-20] MEDS: Verapamil SR 240 MG Tablet 120 MG PO (04:29)
[2020-08-20] MEDS: Imipramine HCl 25 MG Tablet PO ×4 (04:29→21:46)
[2020-08-20] MEDS: Senna/Docusate Sodium 1 Tablet PO ×2 (04:29→16:48)
[2020-08-20] MEDS: ALPRAZolam 0.5 MG Tablet 1 MG PO ×4 (04:29→21:38)
[2020-08-20] MEDS: Pantoprazole Sodium 40 MG Tablet PO (04:29)
[2020-08-20] MEDS: Clopidogrel Bisulfate 75 MG Tablet PO (04:29)
[2020-08-20] MEDS: Propranolol 40 MG Tablet PO ×4 (04:30→21:39)
[2020-08-20] MEDS: Furosemide 20 MG Tablet PO (04:30)
[2020-08-20] MEDS: VILAZODONE HYDROCHLORIDE 10 MG TABLET 20 MG PO ×2 (08:13→16:49)
[2020-08-20] MEDS: Aspirin E.C. 81 MG Tablet PO (08:13)
[2020-08-20] MEDS: Iron Polysaccharide Complex 150 MG CAPSULE PO (08:13)
[2020-08-20 10:27] VITALS: PULSE 60
[2020-08-20] MEDS: Acetaminophen 500 MG Tablet 1000 MG PO (12:53)
[2020-08-20 14:06] VITALS: BP 109/57; PULSE 64; RESP 14; TEMP 35.9; O2SAT 93
[2020-08-20] MEDS: Tamsulosin HCl 0.4 MG Capsule PO (16:48)
[2020-08-20] MEDS: Magnesium Hydroxide 30 ML UDC PO (17:42)
--- NOTE | 2020-08-20 17:45 | NURSING ---
Pt stating that she didn't get the correct dinner order and stated I had the same thing yesterday. Let her know that yesterday dinner she had fish and mashed potatoes and today she has a chicken sandwich. Pt did not agree let her know that we could order her something else. Pt refused and is happy with eating the side dishes.
[2020-08-21 05:26] LABS: Hematocrit 32.4 % (37-47); Hemoglobin 10.2 g/dL (12.0-15.0)
[2020-08-21 05:46] VITALS: BP 129/59; PULSE 61; RESP 18; TEMP 36.2; O2SAT 97
[2020-08-21] MEDS: Propranolol 40 MG Tablet PO ×4 (05:48→22:19)
[2020-08-21] MEDS: Verapamil SR 240 MG Tablet 120 MG PO (05:48)
[2020-08-21] MEDS: Imipramine HCl 25 MG Tablet PO ×4 (05:48→22:19)
[2020-08-21] MEDS: ALPRAZolam 0.5 MG Tablet 1 MG PO ×4 (05:48→22:20)
[2020-08-21] MEDS: Senna/Docusate Sodium 1 Tablet PO ×2 (05:48→16:49)
[2020-08-21] MEDS: Furosemide 20 MG Tablet PO (05:49)
[2020-08-21] MEDS: Pantoprazole Sodium 40 MG Tablet PO (05:49)
[2020-08-21] MEDS: Clopidogrel Bisulfate 75 MG Tablet PO (05:49)
[2020-08-21] MEDS: VILAZODONE HYDROCHLORIDE 10 MG TABLET 20 MG PO ×2 (09:18→16:49)
[2020-08-21] MEDS: Iron Polysaccharide Complex 150 MG CAPSULE PO (09:18)
[2020-08-21] MEDS: Aspirin E.C. 81 MG Tablet PO (09:19)
[2020-08-21 15:35] VITALS: BP 125/68; PULSE 66; RESP 16; TEMP 36.2; O2SAT 98
[2020-08-21] MEDS: Tamsulosin HCl 0.4 MG Capsule PO (16:49)
[2020-08-22] MEDS: ALPRAZolam 0.5 MG Tablet 1 MG PO ×4 (05:06→21:22)
[2020-08-22] MEDS: Furosemide 20 MG Tablet PO (05:07)
[2020-08-22] MEDS: Senna/Docusate Sodium 1 Tablet PO ×2 (05:07→17:11)
[2020-08-22] MEDS: Propranolol 40 MG Tablet PO ×4 (05:07→21:23)
[2020-08-22] MEDS: Clopidogrel Bisulfate 75 MG Tablet PO (05:07)
[2020-08-22] MEDS: Imipramine HCl 25 MG Tablet PO ×4 (05:08→21:23)
[2020-08-22] MEDS: Verapamil SR 240 MG Tablet 120 MG PO (05:08)
[2020-08-22] MEDS: Pantoprazole Sodium 40 MG Tablet PO (05:08)
[2020-08-22 05:10] VITALS: BP 134/56; PULSE 65; RESP 16; TEMP 36.2; O2SAT 96
[2020-08-22] MEDS: VILAZODONE HYDROCHLORIDE 10 MG TABLET 20 MG PO ×2 (09:21→17:12)
[2020-08-22] MEDS: Aspirin E.C. 81 MG Tablet PO (09:21)
[2020-08-22] MEDS: Iron Polysaccharide Complex 150 MG CAPSULE PO (09:22)
[2020-08-22 10:00] VITALS: PULSE 61
[2020-08-22 13:23] VITALS: BP 110/47; PULSE 67; RESP 17; TEMP 35.9; O2SAT 95
[2020-08-22] MEDS: Tamsulosin HCl 0.4 MG Capsule PO (17:11)
[2020-08-22] MEDS: Acetaminophen 500 MG Tablet 1000 MG PO (21:22)
[2020-08-23 04:00] VITALS: BP 114/48; PULSE 61; RESP 16; TEMP 36.2; O2SAT 95
[2020-08-23] MEDS: Imipramine HCl 25 MG Tablet PO ×4 (04:38→20:17)
[2020-08-23] MEDS: ALPRAZolam 0.5 MG Tablet 1 MG PO ×4 (04:38→20:17)
[2020-08-23] MEDS: Furosemide 20 MG Tablet PO (04:38)
[2020-08-23] MEDS: Senna/Docusate Sodium 1 Tablet PO ×2 (04:38→17:17)
[2020-08-23] MEDS: Pantoprazole Sodium 40 MG Tablet PO (04:38)
[2020-08-23] MEDS: Verapamil SR 240 MG Tablet 120 MG PO (04:38)
[2020-08-23] MEDS: Propranolol 40 MG Tablet PO ×4 (04:38→20:17)
[2020-08-23] MEDS: Clopidogrel Bisulfate 75 MG Tablet PO (04:39)
[2020-08-23] MEDS: Iron Polysaccharide Complex 150 MG CAPSULE PO (08:27)
[2020-08-23] MEDS: VILAZODONE HYDROCHLORIDE 10 MG TABLET 20 MG PO ×2 (08:27→17:17)
[2020-08-23] MEDS: Aspirin E.C. 81 MG Tablet PO (08:28)
[2020-08-23 09:46] LABS: Bacteria 0 SEEN /hpf (None Seen); Mucous, Urine 0 SEEN /hpf (<or=2+); Red Blood Cells-Urine 0 SEEN /hpf (0-5); Squamous Epithelial Cells - UA 0 SEEN /hpf (5-10); White Blood Cells 0 SEEN /hpf (0-5)
[2020-08-23 09:49] LABS: Color, Urine Yellow (Yellow); Glucose, Dipstick Normal (Normal); Ketone-Dipstick Negative (Negative); Leukocyte Esterase-Dipstick Negative /ul (Negative); Nitrite-Dipstick Negative (Negative); Occult Blood-Urine Negative /ul (Negative); Protein-Dipstick Negative (Negative); Urine Bilirubin Dipstick Negative (Negative); Urine Clarity Sl. Cloudy (Clear); Urine Urobilinogen Normal (Normal)
[2020-08-23 10:00] VITALS: PULSE 62; RESP 16; O2SAT 97
[2020-08-23 13:51] VITALS: BP 135/61; PULSE 63; RESP 14; TEMP 36.3; O2SAT 95
[2020-08-23] MEDS: Acetaminophen 500 MG Tablet 1000 MG PO ×2 (14:24→23:03)
[2020-08-23] MEDS: Tamsulosin HCl 0.4 MG Capsule PO (17:17)
[2020-08-24 03:48] VITALS: BP 153/62; PULSE 64; RESP 15; TEMP 36.8; O2SAT 98
--- NOTE | 2020-08-24 03:54 | NURSING ---
Found lying on floor on left side in between bed and wall, assisted to sit up and then transfered to edge of bed, full range of motion noted to all ext, slight redness noted to left chest area, no open areas, denies pain , able to stand and transfer to side of bed, refuses to lie down, states i just want to sit on edge of bed, PA on and pt has call light in reach, supervisor testing notified, message left for
[2020-08-24] MEDS: Propranolol 40 MG Tablet PO ×4 (05:06→21:48)
[2020-08-24] MEDS: ALPRAZolam 0.5 MG Tablet 1 MG PO ×4 (05:06→21:47)
[2020-08-24] MEDS: Furosemide 20 MG Tablet PO (05:07)
[2020-08-24] MEDS: Clopidogrel Bisulfate 75 MG Tablet PO (05:07)
[2020-08-24] MEDS: Verapamil SR 240 MG Tablet 120 MG PO (05:07)
[2020-08-24] MEDS: Senna/Docusate Sodium 1 Tablet PO ×2 (05:07→16:52)
[2020-08-24] MEDS: Imipramine HCl 25 MG Tablet PO ×4 (05:07→21:48)
[2020-08-24] MEDS: Pantoprazole Sodium 40 MG Tablet PO (05:07)
--- NOTE | 2020-08-24 06:36 | NURSING ---
Attempting to amb in room unassisted, unsteady on feet, amb to br with this nurse holding onto pt and pt still unsteady, encouraged to ask for assist with amb and use call light to request help,
[2020-08-24 07:12] VITALS: BP 129/70; PULSE 56; RESP 16; TEMP 36.6; O2SAT 98
[2020-08-24] MEDS: Iron Polysaccharide Complex 150 MG CAPSULE PO (09:01)
[2020-08-24] MEDS: VILAZODONE HYDROCHLORIDE 10 MG TABLET 20 MG PO ×2 (09:01→16:52)
[2020-08-24] MEDS: Aspirin E.C. 81 MG Tablet PO (09:01)
--- NOTE | 2020-08-24 09:07 | MDS.RN ---
Information for the mds was obtained from review of the clinical record, interview of resident, staff, and direct observation of resident's care.
[2020-08-24 10:00] VITALS: RESP 16; O2SAT 96
[2020-08-24 14:12] VITALS: BP 100/59; PULSE 66; RESP 17; TEMP 37.1; O2SAT 95
[2020-08-24] MEDS: Tamsulosin HCl 0.4 MG Capsule PO (16:52)
--- NOTE | 2020-08-24 19:56 | NURSING ---
Pt refused for me to update today stated I tell him everything he needs to know.
[2020-08-24] MEDS: AMOXICILLIN 500 MG CAPSULE PO ×2 (20:04→21:48)
[2020-08-24] MEDS: Acetaminophen 500 MG Tablet 1000 MG PO (21:47)
--- NOTE | 2020-08-25 03:46 | NURSING ---
PA alarming, pt found on flood at side of bed on knees, states i just wanted to get up assisted to sit on bed, requested to go to BR, sat on BSC, unable to void, Amd to Toilet with assist, urinated in toilet, cont to be unsteady , able to move all extremities, denies pain or discomfort, eccymosis noted on left hip, pt unsure if ecchymosis is new, floor mats put on both sides of bed on floor, educated pt about need to use call light to ask for assist with amb, states i dont have too , i can do it myself educated about consequences of falls,
[2020-08-25 03:52] VITALS: BP 149/72; PULSE 89; RESP 17; TEMP 36.6; O2SAT 97
[2020-08-25 06:15] VITALS: BP 110/59; PULSE 68; RESP 17; TEMP 36.3; O2SAT 100
[2020-08-25] MEDS: Acetaminophen 500 MG Tablet 1000 MG PO ×2 (06:19→21:13)
[2020-08-25] MEDS: ALPRAZolam 0.5 MG Tablet 1 MG PO ×4 (06:19→21:13)
[2020-08-25] MEDS: Senna/Docusate Sodium 1 Tablet PO ×2 (06:20→16:52)
[2020-08-25] MEDS: Imipramine HCl 25 MG Tablet PO ×4 (06:20→21:13)
[2020-08-25] MEDS: Clopidogrel Bisulfate 75 MG Tablet PO (06:20)
[2020-08-25] MEDS: AMOXICILLIN 500 MG CAPSULE PO ×3 (06:20→21:14)
[2020-08-25] MEDS: Pantoprazole Sodium 40 MG Tablet PO (06:20)
[2020-08-25] MEDS: Furosemide 20 MG Tablet PO (06:20)
[2020-08-25] MEDS: Propranolol 40 MG Tablet PO ×4 (06:20→21:13)
[2020-08-25] MEDS: Verapamil SR 240 MG Tablet 120 MG PO (06:21)
[2020-08-25] MEDS: VILAZODONE HYDROCHLORIDE 10 MG TABLET 20 MG PO ×2 (08:25→16:53)
[2020-08-25] MEDS: Iron Polysaccharide Complex 150 MG CAPSULE PO (08:25)
[2020-08-25] MEDS: Aspirin E.C. 81 MG Tablet PO (08:25)
[2020-08-25 11:42] VITALS: BP 121/59; PULSE 64
[2020-08-25 11:45] VITALS: PULSE 65; RESP 16; O2SAT 96
[2020-08-25 13:56] VITALS: BP 127/68; PULSE 56; RESP 18; TEMP 35.9; O2SAT 95
[2020-08-25] MEDS: Tamsulosin HCl 0.4 MG Capsule PO (16:52)
--- NOTE | 2020-08-25 16:56 | NURSING ---
pt declined needing to call , she updated him
[2020-08-26 06:00] VITALS: BP 132/71; PULSE 60; RESP 18; TEMP 36.6; O2SAT 97
[2020-08-26] MEDS: ALPRAZolam 0.5 MG Tablet 1 MG PO ×4 (06:07→21:53)
[2020-08-26] MEDS: Furosemide 20 MG Tablet PO (06:07)
[2020-08-26] MEDS: Pantoprazole Sodium 40 MG Tablet PO (06:07)
[2020-08-26] MEDS: Verapamil SR 240 MG Tablet 120 MG PO (06:07)
[2020-08-26] MEDS: Senna/Docusate Sodium 1 Tablet PO ×2 (06:07→17:38)
[2020-08-26] MEDS: Clopidogrel Bisulfate 75 MG Tablet PO (06:07)
[2020-08-26] MEDS: AMOXICILLIN 500 MG CAPSULE PO ×3 (06:08→21:54)
[2020-08-26] MEDS: Propranolol 40 MG Tablet PO ×4 (06:08→21:54)
[2020-08-26] MEDS: Imipramine HCl 25 MG Tablet PO ×4 (06:08→21:54)
[2020-08-26 07:16] LABS: Absolute Lymphocyte Count 2.75 X10^3/uL (0.83-4.51); Absolute Neutrophil Count 6.8 X10^3/uL (2.0-7.7); Basophil# 0.09 X10^3/uL; Basophil% 0.8 % (0-1); Eosinophil# 0.07 X10^3/uL; Eosinophils% 0.6 % (0-5); Hematocrit 33.3 % (37-47); Hemoglobin 10.4 g/dL (12.0-15.0); Lymphocyte # 2.75 X10^3/ul (4.0); Lymphocyte % 25.3 % (19-41); Mean Corp Hgb Conc 31.2 g/dL (32-36); Mean Corpuscular Hgb 29.5 pg (27.0-32.0); Mean Corpuscular Volume 94.6 fL (81-99); Mean Platelet Vol. 10.4 fl (6.2-12.0); Monocyte# 0.94 X10^3/uL; Monocyte% 8.6 % (0-10); NRBC Flagged by Analyzer 0 % (0-5); Neutrophil # 6.77 X10^3/uL (2.7-7.7); Neutrophil % 62.2 % (47-70); Platelet Count 307 K/mm3 (150-450); RBC Distribution Width CV 14.9 % (11.6-14.6); RBC Distribution Width SD 51.8 fl (35.1-43.9); Red Blood Count 3.52 M/mm3 (4.2-5.4); White Blood Count 10.9 K/mm3 (4.4-11.0)
[2020-08-26 07:52] LABS: Anion Gap 5 (5-15); BUN 16 mg/dL (7-18); BUN/Creat Ratio 18.5 RATIO (10-20); Calcium,Total 8.6 mg/dL (8.5-10.1); Chloride 109 mmol/L (98-107); Creatinine, Serum 0.86 mg/dL (0.55-1.02); EST Glomerular Filtration Rate 68 mL/min (>60); Est Glom Filt Rate - Afr Amer 82 mL/min (>60); Estimated Creatinine Clearance 52.89 ml/min; Glucose 108 mg/dL (74-106); Potassium 3.9 mmol/L (3.5-5.1); Sodium Level 139 mmol/L (136-145)
[2020-08-26] MEDS: VILAZODONE HYDROCHLORIDE 10 MG TABLET 20 MG PO ×2 (09:31→17:39)
[2020-08-26] MEDS: Aspirin E.C. 81 MG Tablet PO (09:32)
[2020-08-26] MEDS: Iron Polysaccharide Complex 150 MG CAPSULE PO (09:32)
--- NOTE | 2020-08-26 13:49 | NURSING ---
pt gave security slip for personal belongs to TASSEL CLIPPER requesting to retrieve her money. This nurse spoke with pt as to why she wanted to retrieve her money now. She stated she doesn't want her to know she has it when she leaves. Explained to pt that her money will be given to her in her room the day of discharge. pt agreed to this but stated she wants to be discharged on Friday. This nurse will make SW aware of this.
[2020-08-26 14:49] VITALS: BP 106/62; PULSE 64; RESP 14; TEMP 36.8; O2SAT 96
[2020-08-26] MEDS: Tamsulosin HCl 0.4 MG Capsule PO (17:39)
[2020-08-26] MEDS: Acetaminophen 500 MG Tablet 1000 MG PO (21:53)
[2020-08-27] MEDS: ALPRAZolam 0.5 MG Tablet 1 MG PO ×4 (04:56→20:19)
[2020-08-27] MEDS: AMOXICILLIN 500 MG CAPSULE PO ×3 (04:57→20:20)
[2020-08-27] MEDS: Verapamil SR 240 MG Tablet 120 MG PO (04:57)
[2020-08-27] MEDS: Imipramine HCl 25 MG Tablet PO ×4 (04:58→20:20)
[2020-08-27] MEDS: Senna/Docusate Sodium 1 Tablet PO ×2 (04:58→16:38)
[2020-08-27] MEDS: Propranolol 40 MG Tablet PO ×4 (04:59→20:19)
[2020-08-27] MEDS: Pantoprazole Sodium 40 MG Tablet PO (04:59)
[2020-08-27] MEDS: Furosemide 20 MG Tablet PO (04:59)
[2020-08-27] MEDS: Clopidogrel Bisulfate 75 MG Tablet PO (04:59)
[2020-08-27 05:02] VITALS: BP 114/53; PULSE 69; RESP 16; TEMP 36.4; O2SAT 98
[2020-08-27] MEDS: VILAZODONE HYDROCHLORIDE 10 MG TABLET 20 MG PO ×2 (08:09→16:38)
[2020-08-27] MEDS: Iron Polysaccharide Complex 150 MG CAPSULE PO (08:09)
[2020-08-27] MEDS: Aspirin E.C. 81 MG Tablet PO (08:09)
[2020-08-27 10:00] VITALS: PULSE 64; RESP 18; O2SAT 96
[2020-08-27 14:43] VITALS: BP 101/48; PULSE 66; RESP 16; TEMP 35.7; O2SAT 99
[2020-08-27] MEDS: Tamsulosin HCl 0.4 MG Capsule PO (16:37)
[2020-08-27 20:15] VITALS: BP 130/71; PULSE 68; RESP 16; TEMP 36.4; O2SAT 94
[2020-08-27] MEDS: Acetaminophen 500 MG Tablet 1000 MG PO (22:15)
[2020-08-28 04:43] VITALS: BP 112/67; PULSE 76; RESP 16; TEMP 36.4; O2SAT 97
[2020-08-28] MEDS: ALPRAZolam 0.5 MG Tablet 1 MG PO ×2 (04:44→10:45)
[2020-08-28] MEDS: Verapamil SR 240 MG Tablet 120 MG PO (04:44)
[2020-08-28] MEDS: Senna/Docusate Sodium 1 Tablet PO (04:45)
[2020-08-28] MEDS: AMOXICILLIN 500 MG CAPSULE PO ×2 (04:45→14:24)
[2020-08-28] MEDS: Imipramine HCl 25 MG Tablet PO ×2 (04:45→12:16)
[2020-08-28] MEDS: Pantoprazole Sodium 40 MG Tablet PO (04:45)
[2020-08-28] MEDS: Propranolol 40 MG Tablet PO ×2 (04:45→13:33)
[2020-08-28] MEDS: Clopidogrel Bisulfate 75 MG Tablet PO (04:45)
[2020-08-28] MEDS: Furosemide 20 MG Tablet PO (04:45)
[2020-08-28] MEDS: VILAZODONE HYDROCHLORIDE 10 MG TABLET 20 MG PO (08:25)
[2020-08-28] MEDS: Aspirin E.C. 81 MG Tablet PO (08:25)
[2020-08-28] MEDS: Iron Polysaccharide Complex 150 MG CAPSULE PO (08:25)
--- NOTE | 2020-08-28 11:05 | NURSING ---
Dr Batres updated that resident is stating she will be leaving at 2 pm today as her is picking her up. He said to relay to this resident that this is not adviced at this time. Message relayed and she states well my talked to Dr batres and told him he would be picking me up and Dr Batres said ok. Crys, renal social worker aware of this and will be talking with her as well.
--- NOTE | 2020-08-28 11:53 | CASEMGMT ---
Social Work Received several calls and messages that pt is requesting to DC home on this date, including from . Spoke with pt about DC plans. Pt states she is ready to go home, she is strong enough, and she did her time. Explained IDT recommending continued stay for strength and balance, as pt has had falls. Inquired about safety at home and if she falls. Pt stated she didn't really fall and she will be fine at home. Explained SW will talk to about DC. Pt replied, I'm going home whether he agrees or not. SW will relay to . Inquired she if she is agreeable to [facility]. Pt agreed. Spoke with Dr and Dr agreeable to DC. Notified pt. Pt appreciative. Contacted . appreciative and requesting FWW. Informed SW can order FWW but will have to deliver to home since same day DC, agreeable. Provided [facility] list of in network insurances and in location of pt. Pt prefers [facility]. Referral made to [facility] PT/OT/SN. Referred to [place] for FWW. Plan: DC home with 08/28 with [facility] PT/OT/SN, FWW Graciela Tabor, ALTERNATIVE MEDICINE PRACTITIONER ALTHEA
--- NOTE | 2020-08-28 12:22 | DCINST_ITS ---
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 (Acute) Left hemiparesis (Acute) Facial droop due to stroke (Acute) Dysphagia (Acute) Muscle spasm (Acute) Chronic obstructive pulmonary disease (Chronic) Tobacco abuse (Chronic) Hypertension (Chronic) Hyperlipidemia (Chronic) GERD (gastroesophageal reflux disease) (Chronic) Hypokalemia (Chronic) Depression (Chronic) Anxiety (Chronic) You will use the following diet at home:: No restrictions, Regular Your food should be the consistency of: Regular Your liquids should be the consistency of: Regular/Thin Discharge Activity: Return to Normal Activity, May Shower, Use Walker Weight Bearing Status: Weight bearing as tolerated Call your doctor if your incision/area has: Increased Pain/ Swelling Call your doctor if you observe: Inability to urinate, Inability to have a bowel movement, Shortness of breath, Chest pain, Uncontrolled pain Allergies/Adverse Reactions: Allergies acetaminophen [From Darvocet-N] Allergy (Verified 08/25/19 14:14) swelling codeine Allergy (Verified 08/25/19 14:13) swelling Iodinated Contrast Media Allergy (Verified 08/25/19 14:13) swelling iodine Allergy (Verified 08/25/19 14:13) swelling meperidine [From Demerol] Allergy (Verified 08/25/19 14:14) heart stop morphine Allergy (Verified 08/25/19 14:13) swelling propoxyphene [From Darvocet-N] Allergy (Verified 08/25/19 14:13) heart stop Medications to take at Discharge albuterol sulfate 90 mcg/actuation aerosol inhaler 1 puff INHALATION 4X/DAY PRN PRN 08/25/19 alprazolam 1 mg tablet 1 mg PO 4X/DAY 08/25/19 propranolol 40 mg tablet 40 mg PO 4X/DAY 08/25/19 trimipramine 25 mg capsule 25 mg PO 4X/DAY 08/25/19 trimipramine 25 mg capsule 25 mg PO DAILY 08/25/19 verapamil 120 mg tablet,extended release 120 mg PO DAILY 08/25/19 vilazodone 20 mg tablet 20 mg PO BID 08/25/19 Aspirin [Aspirin EC] 81 mg PO DAILY 08/11/20 Omeprazole 40 mg PO DAILY 08/11/20 Acetaminophen [Tylenol] 1,000 mg PO Q6H PRN tablet 08/28/20 Amoxicillin [Amoxil] 500 mg PO Q8 #9 cap 08/28/20 Baclofen [Lioresal] 10 mg PO TID PRN tablet 08/28/20 Clopidogrel Bisulfate [Plavix] 75 mg PO DAILY #30 tab 08/28/20 Furosemide [Lasix] 20 mg PO DAILY tablet 08/28/20 Iron Polysaccharide Complex [Ferrex 150] 150 mg PO DAILYCM #30 cap 08/28/20 Potassium Chloride [K-Dur] 20 meq PO TIDCM #90 tab 08/28/20 Tamsulosin HCl [Flomax] 0.4 mg PO DAILY@1730 #30 cap 08/28/20 The following prescriptions were given: Amoxicillin [Amoxil] 500 mg PO Q8 #9 cap Transmission Status: Pending to [facility] Iron Polysaccharide Complex [Ferrex 150] 150 mg PO DAILYCM #30 cap Transmission Status: Pending to [facility] Tamsulosin HCl [Flomax] 0.4 mg PO DAILY@1730 #30 cap Transmission Status: Pending to [facility] Potassium Chloride [K-Dur] 20 meq PO TIDCM #90 tab Transmission Status: Pending to [facility] Clopidogrel Bisulfate [Plavix] 75 mg PO DAILY #30 tab Transmission Status: Pending to [facility] Primary Care Physician: Partha Batres Chi, MD [Primary Care Provider] - Please follow up with your Primary Care Physician in: 1 week. Test Results: Test results from this visit will be discussed in further detail at your follow- up appointment, if applicable. Proposed Discharge Date: 08/28/20
--- NOTE | 2020-08-28 12:23 | PCM.DC.SUM ---
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 (Acute) Left hemiparesis (Acute) Facial droop due to stroke (Acute) Dysphagia (Acute) Muscle spasm (Acute) - Secondary Discharge Diagnosis Chronic Problems: Chronic Problems (Last Updated 08/25/19 @ 14:44 by Larisa Kinney) Chronic obstructive pulmonary disease (Chronic) Tobacco abuse (Chronic) Hypertension (Chronic) Hyperlipidemia (Chronic) GERD (gastroesophageal reflux disease) (Chronic) Hypokalemia (Chronic) Depression (Chronic) Anxiety (Chronic) Hospital Course and Treatment Imaging Results: 08/23/20 09:22 Diet: Cardiac - Heart Healthy Food consistency:: Soft & Bite Sized Liquid Consistency:: Regular/Thin Type of Dietary Supplement:: Glucerna Shake Is pt able to select menu?: Yes Diet Comments: chocolate w/ lunch only Operations: None Procedures: None Summary of Care Provided: The patient is a 75 year old Female with below past medical history of right brainstem stroke, left hemiparesis, dysphagia, admitted to TCU with debility, here for rehabilitation, strengthening, prior to discharge home with /son. On TCU, treated for urinary tract infection with Amoxicillin 500MG Q8H x 7 days. Iron added for anemia, can stop later on. KCL adjusted upwards, can reduce later on. Tamsulosin 0.4MG added for urinary retention, can stop later on. Discharge home with , [facility] PT/OT/SN. 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 (Acute) Left hemiparesis (Acute) Facial droop due to stroke (Acute) Dysphagia (Acute) Muscle spasm (Acute) - Physical Exam Vitals/I&O's: Vital Signs Temp Pulse Resp BP Pulse Ox 97.6 F L 76 16 112/67 97 08/28/20 04:43 08/28/20 04:43 08/28/20 04:43 08/28/20 04:43 08/28/20 04:43 Oxygen Delivery Method Room Air Weight: 58.377 kg Body Mass Index (BMI) 27.4 Intake and Output for Last 24 Hours 08/26/20 08/27/20 08/28/20 23:59 23:59 23:59 Intake Total 660 / 660 240 / 240 Balance 660 / 660 240 / 240 Microbiology Past 72 Hours 08/23/20 07:36 Urine, Clean Catch Urine Culture - Final Enterococcus faecalis Current Medications Acetaminophen (Acetaminophen 500 Mg Tablet) 1,000 mg PO Q6H PRN PRN Reason: Pain Score 1-10 Last Admin: 08/27/20 22:15 Dose: 1,000 mg Documented by: Albuterol Sulfate (Albuterol Sulfate 8 Gm Inhaler (60 Puffs)) 1 puff INHALATION 4X/DAY PRN PRN PRN Reason: Wheezing/SOB Alprazolam (Alprazolam 0.5 Mg Tablet) 1 mg PO 0400,1000,1600,2200 [facility] Last Admin: 08/28/20 10:45 Dose: 1 mg Documented by: Amoxicillin (Amoxicillin 500 Mg Capsule) 500 mg PO Q8 [facility] Stop: 08/31/20 22:01 Last Admin: 08/28/20 04:45 Dose: 500 mg Documented by: Aspirin (Aspirin E.C. 81 Mg Tablet) 81 mg PO DAILY@0800 [facility] Last Admin: 08/28/20 08:25 Dose: 81 mg Documented by: Baclofen (Baclofen 10 Mg Tablet) 10 mg PO TID PRN PRN Reason: MUSCLE SPASM Last Admin: 08/16/20 22:33 Dose: 10 mg Documented by: Bisacodyl (Bisacodyl 10 Mg Suppository) 10 mg RECTAL DAILY PRN PRN Reason: Constipation Clopidogrel Bisulfate (Clopidogrel Bisulfate 75 Mg Tablet) 75 mg PO DAILY [facility] Last Admin: 08/28/20 04:45 Dose: 75 mg Documented by: Furosemide (Furosemide 20 Mg Tablet) 20 mg PO DAILY [facility] Last Admin: 08/28/20 04:45 Dose: 20 mg Documented by: Imipramine HCl (Imipramine Hcl 25 Mg Tablet) 25 mg PO 4X/DAY [facility] Last Admin: 08/28/20 12:16 Dose: 25 mg Documented by: Magnesium Hydroxide (Magnesium Hydroxide 30 Ml Udc) 30 ml PO DAILY PRN PRN Reason: Constipation Last Admin: 08/20/20 17:42 Dose: 30 ml Documented by: Pantoprazole Sodium (Pantoprazole Sodium 40 Mg Tablet) 40 mg PO DAILY [facility] Last Admin: 08/28/20 04:45 Dose: 40 mg Documented by: Polysaccharide Iron Complex ([facility] Polysaccharide [facility] 150 [facility]ule) [facility] Last Admin: 08/28/20 08:25 Dose: 150 mg Documented by: Potassium Chloride (Potassium Chloride 20 Meq Tablet) 20 meq PO TIDCM [facility] Last Admin: 08/28/20 12:16 Dose: 20 meq Documented by: Propranolol HCl (Propranolol 40 Mg Tablet) 40 mg PO 4X/DAY [facility] Last Admin: 08/28/20 04:45 Dose: 40 mg Documented by: Senna/Docusate Sodium (Senna/Docusate Sodium 1 Tablet) 1 tablet PO BID [facility] Last Admin: 08/28/20 04:45 Dose: 1 tablet Documented by: Tamsulosin HCl (Tamsulosin Hcl 0.4 Mg Capsule) 0.4 mg PO DAILY@1730 [facility] Last Admin: 08/27/20 16:37 Dose: 0.4 mg Documented by: Verapamil HCl (Verapamil Sr 240 Mg Tablet) 120 mg PO DAILY [facility] Last Admin: 08/28/20 04:44 Dose: 120 mg Documented by: Vilazodone HCl ([facility]ilazodone Hydrochloride 10 Mg Tablet) [facility] Last Admin: 08/28/20 08:25 Dose: 20 mg Documented by: Discharge Diet: No Restrictions Discharge Activity: Return to Normal Activity, May Shower, Use Walker Weight Bearing Status: Weight bearing as tolerated Call your doctor if your incision/area has: Increased Pain/ Swelling Call your doctor if you observe: Inability to urinate, Inability to have a bowel movement, Shortness of breath, Chest pain, Uncontrolled pain Home Medications: Medications to take at Discharge albuterol sulfate 90 mcg/actuation aerosol inhaler 1 puff INHALATION 4X/DAY PRN PRN 08/25/19 alprazolam 1 mg tablet 1 mg PO 4X/DAY 02/05/20 propranolol 40 mg tablet 40 mg PO 4X/DAY 08/25/19 trimipramine 25 mg capsule 25 mg PO 4X/DAY 08/25/19 trimipramine 25 mg capsule 25 mg PO DAILY 08/25/19 verapamil 120 mg tablet,extended release 120 mg PO DAILY 08/25/19 vilazodone 20 mg tablet 20 mg PO BID 08/25/19 Aspirin [Aspirin EC] 81 mg PO DAILY 08/11/20 Omeprazole 40 mg PO DAILY 08/11/20 Acetaminophen [Tylenol] 1,000 mg PO Q6H PRN tablet 08/28/20 Amoxicillin [Amoxil] 500 mg PO Q8 #9 cap 08/28/20 Baclofen [Lioresal] 10 mg PO TID PRN tablet 08/28/20 Clopidogrel Bisulfate [Plavix] 75 mg PO DAILY #30 tab 08/28/20 Furosemide [Lasix] 20 mg PO DAILY tablet 08/28/20 Iron Polysaccharide Complex [Ferrex 150] 150 mg PO DAILYCM #30 cap 08/28/20 Potassium Chloride [K-Dur] 20 meq PO TIDCM #90 tab 08/28/20 Tamsulosin HCl [Flomax] 0.4 mg PO DAILY@1730 #30 cap 08/28/20 Following Prescriptions Were Given to Patient: Amoxicillin [Amoxil] 500 mg PO Q8 #9 cap Transmission Status: [facility] Iron Polysaccharide Complex [Ferrex 150] 150 mg PO DAILYCM #30 cap Transmission Status: [facility] to [facility] Tamsulosin HCl [Flomax] 0.4 mg PO DAILY@1730 #30 cap Transmission Status: P[facility] to [facility] [address] [facility] Potassium Chloride [K-Dur] 20 meq PO TIDCM #90 tab [facility]: [facility] [facility] [address] Clopidogrel Bisulfate [Plavix] 75 mg PO DAILY #30 tab Transmission Status: [facility] [facility] [address] Primary Care Physician: Partha Batres Chi, MD [Primary Care Provider] - Please follow up with your Primary Care Physician in: 1 week. Disposition: Home with Home Health Minutes spent on discharge:: 35 Patient Condition:: Stable Medical Necessity - Tobacco Use Smoking Status: Current every day smoker Tobacco Use: Cigarettes Meaningful Use Info Meaningful Use Diagnoses (Choose all that apply): None applicable
[2020-08-28 12:25] VITALS: PULSE 61; RESP 18; O2SAT 99
[2020-08-28 13:50] VITALS: BP 117/57; PULSE 77; RESP 15; TEMP 36.4; O2SAT 98
--- NOTE | 2020-08-28 14:20 | NURSING ---
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
[2020-08-28 15:35] VITALS: BP 117/57; PULSE 77; RESP 15; TEMP 36.4; O2SAT 98
== END 2020-08-28 14:50 | disposition home health service (06) | DRG 57 ==
LOC: TCU 11:53
PROVIDERS: Admitting Provider Family Medicine Geriatric Medicine; PCP Family Medicine Geriatric Medicine; Visit Provider Family Medicine Geriatric Medicine
DX: I69.354 Hemiplegia and hemiparesis following cerebral infarction affecting left non-dominant side (principal); I69.392 Facial weakness following cerebral infarction; I69.391 Dysphagia following cerebral infarction; R13.10 Dysphagia, unspecified; J44.9 Chronic obstructive pulmonary disease, unspecified; F41.9 Anxiety disorder, unspecified; F32.9 Major depressive disorder, single episode, unspecified; K21.9 Gastro-esophageal reflux disease without esophagitis; I10 Essential (primary) hypertension; E78.5 Hyperlipidemia, unspecified; E87.6 Hypokalemia; R33.9 Retention of urine, unspecified; E11.9 Type 2 diabetes mellitus without complications; F17.210 Nicotine dependence, cigarettes, uncomplicated; D64.9 Anemia, unspecified
CPT/HCPCS: 36415; 74230; 80048; 81001; 85014; 85018; 85025; 87077; 87086; 87088; 87186; 87426; 87635; 92507; 92526; 92610; 92611; 93306; 97110; 97116; 97162; 97166; 97530; 97535; 97802; 99406; U0005; U0003

== ENCOUNTER → 2020-08-14 09:45 | Outpatient (CLI) | payer MEDICARE, OTHER, SELFPAY ==
[2020-08-11 12:02] VITALS: BMI 27.4
--- NOTE | 2020-08-14 09:57 | ECHOD_ITS ---
Reason For Study: MVP, STROKE Procedure This was a 2D Doppler, Color Flow transthoracic echocardiogram. The study was technically difficult. Patient was scanned in supine position during reflux assessment. Scanned supine due to fall - left shoulder, arm and rib fractures. Left Ventricle Normal LV size. Left ventricular systolic function is normal. The estimated ejection fraction is 60 %. No regional wall motion abnormalities noted. Right Ventricle Normal RV size. Normal systolic function. Atria Normal left atrium. Normal right atrium. Mitral Valve Bileaflet diffuse mitral valve thickening. Mild (1+) eccentric mitral valve insufficiency. Tricuspid Valve Normal tricuspid valve. Mild (1+) tricuspid valve insufficiency. Pulmonary artery systolic pressure is 34 mmHg. Aortic Valve Normal aortic valve. Trisinus/trileaflet aortic valve. Pulmonic Valve Normal pulmonic valve. Great Vessels Normal aortic root. The pulmonary artery is normal size. Pericardium/Pleural No pericardial effusion. Medication No IV access available for Bubble study/Definity. MMode/2D Measurements & Calculations LVIDd: 4.5 cm IVSd: 0.80 cm Ao root diam: 2.9 cm LVIDs: 3.2 cm LVPWd: 0.80 cm RVDd: 3.0 cm FS: 28.8 % LAV(MOD-bp): 32.2 ml LA A4 area: 14.1 cm2 LA dimension(2D): 2.9 cm LAV(MOD-bp) Indexed: 21.2 ml/m2 LAV(MOD-sp2): 32.0 ml LAV(MOD-sp4): 32.4 ml RA A4 area: 11.6 cm2 Time Measurements MV dec time: 0.14 sec Doppler Measurements & Calculations MV E max francis: 87.7 cm/sec Lat Peak E' Francis: 10.2 cm/sec Med Peak E' Francis: 7.2 cm/sec MV A max francis: 63.2 cm/sec E/E' lat: 8.6 E/E' med: 12.2 MV E/A: 1.4 Ao V2 max: 138.0 cm/sec LV V1 max: 115.8 cm/sec TR max francis: 275.9 cm/sec Ao max P.6 mmHg LV V1 max P.4 mmHg TR max P.4 mmHg Interpretation Summary Normal LV size. Left ventricular systolic function is normal. The estimated ejection fraction is 60 %. Mild (1+) tricuspid valve insufficiency. Pulmonary artery systolic pressure is 34 mmHg. Ordering Physician: Partha Batres Referring Physician: Partha Batres Chi Performed By: Bruna Mary, RDCS, RVT
== END ==
PROVIDERS: PCP Family Medicine Geriatric Medicine; Referring Provider Family Medicine Geriatric Medicine; Visit Provider Family Medicine Geriatric Medicine
DX: I74.9 Embolism and thrombosis of unspecified artery (principal)
CPT/HCPCS: 93306

== ENCOUNTER → 2020-09-04 16:11 | Outpatient (CLI) | payer MEDICARE, OTHER, SELFPAY ==
[2020-08-11 12:02] VITALS: BMI 27.4
[2020-09-04 17:18] LABS: Absolute Lymphocyte Count 2.55 X10^3/uL (0.83-4.51); Absolute Neutrophil Count 7.5 X10^3/uL (2.0-7.7); Basophil# 0.08 X10^3/uL; Basophil% 0.7 % (0-1); Eosinophil# 0.07 X10^3/uL; Eosinophils% 0.6 % (0-5); Lymphocyte # 2.55 X10^3/ul (4.0); Lymphocyte % 22.1 % (19-41); Mean Corp Hgb Conc 31.4 g/dL (32-36); Mean Corpuscular Hgb 29.5 pg (27.0-32.0); Mean Corpuscular Volume 93.8 fL (81-99); Mean Platelet Vol. 10.3 fl (6.2-12.0); Monocyte# 1.07 X10^3/uL; Monocyte% 9.3 % (0-10); NRBC Flagged by Analyzer 0 % (0-5); Neutrophil # 7.45 X10^3/uL (2.7-7.7); Neutrophil % 64.6 % (47-70); Platelet Count 365 K/mm3 (150-450); RBC Distribution Width CV 14.9 % (11.6-14.6); RBC Distribution Width SD 51.7 fl (35.1-43.9); Red Blood Count 3.73 M/mm3 (4.2-5.4); White Blood Count 11.5 K/mm3 (4.4-11.0)
[2020-09-04 17:58] LABS: Vitamin D,25 Hydroxy 28.6 ng/mL
[2020-09-04 18:01] LABS: AST(SGOT) 17 U/L (15-37); Alanine Aminotransfer ALT/SGPT 20 U/L (13-56); Albumin, Serum 3.5 g/dL (3.2-5.0); Alkaline Phosphatase 106 U/L (45-117); Anion Gap 4 (5-15); BUN 17 mg/dL (7-18); BUN/Creat Ratio 17.8 RATIO (10-20); Chloride 104 mmol/L (98-107); Creatinine, Serum 0.96 mg/dL (0.55-1.02); EST Glomerular Filtration Rate 61 mL/min (>60); Est Glom Filt Rate - Afr Amer 73 mL/min (>60); Globulin 3.4 g/dL (2.2-4.2); Glucose 107 mg/dL (74-106); Potassium 4.1 mmol/L (3.5-5.1); Protein, Total 6.9 g/dL (6.4-8.2); Sodium Level 138 mmol/L (136-145); Thyroid Stim Hormone (TSH) 0.42 uIU/mL (0.358-3.74)
== END ==
PROVIDERS: PCP Family Medicine Geriatric Medicine; Referring Provider Family Medicine Geriatric Medicine; Visit Provider Family Medicine Geriatric Medicine
DX: E11.9 Type 2 diabetes mellitus without complications (principal); E55.9 Vitamin D deficiency, unspecified; R53.83 Other fatigue; N39.0 Urinary tract infection, site not specified
CPT/HCPCS: 36415; 80053; 82306; 84443; 85025; 87086; 87088

== ENCOUNTER 2020-09-22 12:21 | Emergency (ER) | payer MEDICARE, OTHER, SELFPAY ==
[2020-08-11 12:02] VITALS: BMI 27.4
[2020-09-22 12:21] VITALS: BP 119/42; PULSE 63; RESP 14; TEMP 37.1; O2SAT 98; BMI 27.1
[2020-09-22 12:26] VITALS: O2SAT 100
--- NOTE | 2020-09-22 12:40 | CT_ITS ---
STUDY: CT BRAIN WITHOUT CONTRAST REASON FOR EXAM: Female, 75 years old. Head injury RADIATION DOSAGE (If Supplied By Facility): CTDIvol = ( 44.99 ) mGy, DLP = ( 779.24 ) mGycm TECHNIQUE: Transaxial CT imaging of the brain was performed without administration of intravenous contrast material. Individualized dose optimization techniques were used for this CT. COMPARISON: No relevant priors. FINDINGS: Normal soft tissue structures. Normal calvarium. There is mild cerebral atrophy with widening of the extra-axial spaces and ventricular dilatation. There are areas of decreased attenuation within the white matter tracts of the supratentorial brain, consistent with microvascular disease changes. Normal basal ganglia and thalami. Normal brainstem. There is mild cerebellar atrophy. There is no intracranial hemorrhage. There are no findings of an acute ischemic infarction. Calcification of the vertebral arteries and cavernous portions of the internal carotid arteries bilaterally. Normal visualized paranasal sinuses. CT/Brain/Head without Contrast IMPRESSION: Chronic involutional changes of the brain. Electronically Signed: Titi Milton MD at 13:31 EST , Service support ,
--- NOTE | 2020-09-22 12:40 | EKG12_ITS ---
Test Reason : DIZZY Blood Pressure : / mmHG Vent. Rate : 063 BPM Atrial Rate : 063 BPM P-R Int : 158 ms QRS Dur : 078 ms QT Int : 414 ms P-R-T Axes : 052 069 046 degrees QTc Int : 423 ms Normal sinus rhythm Normal ECG Confirmed by ANKUR CHISHOLM, SAW ([id number]), editorial intern TOMER VILLAR ([id number]) on 09/26/2020 12:28:35 PM Referred By: MANUELITO/RICHARD Confirmed By:SAW PASCUAL MD
--- NOTE | 2020-09-22 12:40 | ED.RN ---
PT WITH WOUND TO RIGHT ELBOW SINCE FALL LAST WEEK. BANDAGE INTACT. UNABLE TO ASSESS.
--- NOTE | 2020-09-22 12:41 | RAD_ITS ---
STUDY: X-RAY CHEST REASON FOR EXAM: Female, 75 years old. Fall TECHNIQUE: Single AP portable view of the chest. COMPARISON: Comparison is made with prior study dated 08/08/2016. FINDINGS: EKG electrodes are seen. Surgical clips are seen in the left axillary region. Hyperinflation. The lungs are clear. There is no demonstrated pleural abnormality. Normal size heart. Normal mediastinum and abida. Normal visualized pulmonary arteries. There is atherosclerotic calcification of the aortic arch with tortuosity. There are degenerative changes of the visualized thoracic spine. There is evidence of a transverse fracture of the surgical neck of the proximal left humerus with rotation of the humeral head. This most likely is old. Clinical correlation is recommended. There is no demonstrated abnormality of the visualized soft tissue structures of the upper abdomen. RAD/Chest 1 View (Portable) IMPRESSION: Hyperinflation. The lungs are clear. Transverse fracture through the surgical neck of the proximal left humerus with rotation of the humeral head. This most likely is chronic in nature. Electronically Signed: Titi Milton MD at 13:32 EST , Service support ,
--- NOTE | 2020-09-22 12:43 | ED.DCSUM_ITS ---
- ER Visit Summary Date of Service: 09/22/20 Chief Complaint: Fall History of Present Illness: The patient is a 75 F who presents after a fall last night and again today. Patient fell approximately 10 PM last night and fell again at 10 AM today. Patient was attempting to sit on a potty chair while she was ambulating with her walker when she fell. Patient thinks she hit the left side of her head. Patient denies any loss of consciousness. Patient also admits to some pain in her neck. Patient describes her pain as aching. Patient denies any paresthesias or weakness. Patient fell a year ago and has some pain to her left shoulder from that. Patient denies any new injury to her left arm. Physical Examination: Vital signs are stable. Patient is afebrile. Patient is in no acute distress. Cranial nerves II through XII are grossly intact. There are no focal motor or sensory deficits noted. There is some mild tenderness over the left parietal area. There is no bony crepitance or step-off. There is tenderness over the cervical spine and paraspinal muscles. There is no step-off or deformity. Heart was regular rate and rhythm. Lungs are clear and equal bilaterally. Abdomen is soft. Bowel sounds are normal. There is no tenderness. Extremities are intact. There is no calf tenderness or edema. Test Results: EKG was obtained. On my interpretation, there is normal sinus rhythm with a rate of 63. There are no acute ST or T wave changes. There are no prior EKGs available for comparison. Portable 1 view chest x-ray was obtained. On my interpretation, lung mohan are clear. There is normal cardiac silhouette. Bony thorax is normal. There is no acute process noted. Radiologist also interpreted the x-ray and agrees. CT scan of the brain was obtained. There is no acute process noted. There is no acute infarct or bleed. CT scan of the cervical spine was obtained. There are degenerative changes. There is no acute fracture or spondylolisthesis. These were interpreted by the radiologist and reviewed by myself. CBC shows a slight leukocytosis of 11.5. Comprehensive metabolic profile is within normal limits. PT with INR and PTT were normal. Troponin was normal. Urinalysis does not show any evidence of urinary tract infection. Emergency Department Course and Treatment: Patient felt better on reevaluation. Patient was steady on ambulation with a walker. Patient has home physical therapy. Patient wants to go home. Patient will be discharged. Patient was instructed to follow-up with her primary care physician in 5 to 7 days. Patient was instructed return if worse in any way. Patient and family understood and were agreeable with the plan. All questions were answered. Disposition: Discharge home Impression: 1. Fall 2. Closed head injury This note was generated with [employer] dictation software. It may contain incorrect words, spelling, and punctuation that were not noted in review of the chart prior to signing ED Disposition - Plan for ED Patient: Disposition: Home or Assisted Living Diagnosis: Fall, Closed head injury Instructions: ED Fall Prevention, ED Head Injury (Adult) Referrals: Partha Batres Chi, MD [Primary Care Provider] - 5-7 Days
--- NOTE | 2020-09-22 12:46 | CT_ITS ---
STUDY: CT CERVICAL SPINE WITHOUT CONTRAST REASON FOR EXAM: Female, 75 years old. Injury/Pain RADIATION DOSAGE (If Supplied By Facility): CTDIvol = ( 18.77 ) mGy, DLP = ( 387.91 ) mGycm TECHNIQUE: High resolution transaxial imaging was performed without contrast material. Sagittal and coronal images were reconstructed. Individualized dose optimization techniques were used for this CT. COMPARISON: None FINDINGS: Normal craniovertebral junction. There are degenerative changes of the anterior atlantoaxial articulation. Normal odontoid process. There is straightening of the normal cervical lordosis. Normal vertebral bodies and posterior osseous elements. C2-3: Facet joint osteoarthritis with hypertrophy. No significant stenosis is seen. C3-4: Mild degree of disc space narrowing. Facet joint osteoarthritis and hypertrophy. No significant stenosis is seen. C4-5: Marked degree of the disc space narrowing and spondylosis. Facet joint osteoarthritis. No significant neural foraminal stenosis seen. C5-6: Marked degree of disc space narrowing. Spondylosis. Uncovertebral arthrosis. C6-7: Marked degree of disc space narrowing. Spondylosis. No evidence of stenosis. C7-T1: Normal endplates. Normal disc height and morphology. Normal central canal and intervertebral neuroforamina. Normal visualized soft tissue structures. CT/Spine Cervical without Contras IMPRESSION: Multilevel degenerative changes, as described above. Electronically Signed: Titi Milton MD at 13:30 EST , Service support ,
[2020-09-22 12:56] LABS: Basophil# 0.09 X10^3/uL; Basophil% 0.8 % (0-1); Eosinophil# 0.08 X10^3/uL; Eosinophils% 0.7 % (0-5); Hematocrit 33.7 % (37-47); Hemoglobin 10.1 g/dL (12.0-15.0); Lymphocyte % 18.2 % (19-41); Mean Corpuscular Hgb 28.7 pg (27.0-32.0); Mean Corpuscular Volume 95.7 fL (81-99); Mean Platelet Vol. 9.6 fl (6.2-12.0); Monocyte# 0.95 X10^3/uL; Monocyte% 8.3 % (0-10); NRBC Flagged by Analyzer 0 % (0-5); Neutrophil # 8.02 X10^3/uL (2.7-7.7); Neutrophil % 69.7 % (47-70); Platelet Count 414 K/mm3 (150-450); RBC Distribution Width CV 14.7 % (11.6-14.6); RBC Distribution Width SD 51.4 fl (35.1-43.9); Red Blood Count 3.52 M/mm3 (4.2-5.4); White Blood Count 11.5 K/mm3 (4.4-11.0)
[2020-09-22 12:58] LABS: Prothrombin Time (Protime)PT. 12.3 SECONDS (11.7-14.9)
[2020-09-22 12:59] LABS: Partial Thromboplast Time 29.2 Seconds (24.1-36.2)
[2020-09-22] MEDS: 0.9% Normal Saline 1,000 ML 1000 ML IV (13:00)
[2020-09-22 13:11] LABS: ALB/GLOB Ratio 0.9 RATIO (0.9-2.4); AST(SGOT) 15 U/L (15-37); Alanine Aminotransfer ALT/SGPT 19 U/L (13-56); Albumin, Serum 3.3 g/dL (3.2-5.0); Alkaline Phosphatase 122 U/L (45-117); Anion Gap 4 (5-15); BUN 13 mg/dL (7-18); BUN/Creat Ratio 14.2 RATIO (10-20); Calcium,Total 8.7 mg/dL (8.5-10.1); Chloride 107 mmol/L (98-107); Creatinine, Serum 0.92 mg/dL (0.55-1.02); EST Glomerular Filtration Rate 64 mL/min (>60); Est Glom Filt Rate - Afr Amer 77 mL/min (>60); Estimated Creatinine Clearance 51.49 ml/min; Globulin 3.6 g/dL (2.2-4.2); Glucose 149 mg/dL (74-106); Potassium 3.9 mmol/L (3.5-5.1); Protein, Total 6.9 g/dL (6.4-8.2); Sodium Level 140 mmol/L (136-145)
[2020-09-22 13:12] LABS: Bacteria 0 SEEN /hpf (None Seen); Mucous, Urine 0 SEEN /hpf (<or=2+); Red Blood Cells-Urine 0 SEEN /hpf (0-5); Squamous Epithelial Cells - UA 0 SEEN /hpf (5-10); White Blood Cells 0 SEEN /hpf (0-5)
[2020-09-22 13:14] LABS: Color, Urine Yellow (Yellow); Glucose, Dipstick Normal (Normal); Ketone-Dipstick Negative (Negative); Leukocyte Esterase-Dipstick Negative /ul (Negative); Nitrite-Dipstick Negative (Negative); Occult Blood-Urine Negative /ul (Negative); Protein-Dipstick Negative (Negative); Urine Bilirubin Dipstick Negative (Negative); Urine Clarity Clear (Clear); Urine Urobilinogen Normal (Normal)
[2020-09-22 14:53] VITALS: BP 119/72; PULSE 64; RESP 14; O2SAT 97
== END 2020-09-22 15:07 | disposition home or self-care (01) ==
PROVIDERS: Emergency Provider Emergency Medicine; PCP Family Medicine Geriatric Medicine
DX: S09.90XA Unspecified injury of head, initial encounter (principal); W22.03XA Walked into furniture, initial encounter; R42 Dizziness and giddiness; Z86.73 Personal history of transient ischemic attack (TIA), and cerebral infarction without residual deficits; Z85.3 Personal history of malignant neoplasm of breast; F17.210 Nicotine dependence, cigarettes, uncomplicated; R53.1 Weakness; R51.9 Headache, unspecified; R35.0 Frequency of micturition; R32 Unspecified urinary incontinence
CPT/HCPCS: 70450; 71045; 72125; 80053; 81001; 83605; 84484; 85025; 85610; 85730; 93005; 99285; A4216

== ENCOUNTER 2020-10-07 21:43 | Emergency (ER) | payer MEDICARE, OTHER, SELFPAY ==
[2020-10-07 21:44] VITALS: BP 152/49; PULSE 78; RESP 18; TEMP 36.3; O2SAT 98; BMI 27.3
--- NOTE | 2020-10-07 22:43 | ED.VISSUMM ---
- ER Visit Summary Date of Service: 10/07/20 Chief Complaint: Fall History of Present Illness: The patient is a [address] Batres. She has a history of a stroke. States that 2 days ago she lost her balance and fell on the left side of her chest. She has pain that is 10 of 10 severity. She reports this does make her feel mildly short of breath. She also complains of left shoulder pain is 10 of 10 severity. She denies any blow to the head or loss of consciousness. She not on anticoagulants. She denies any right shoulder pain. No wrist or hip pain. Physical Examination: Vitals: Stable. Afebrile. Neck: No vertebral tenderness. Full ROM without difficulty. Cleared by NEXUS criteria. Back: No vertebral tenderness. General: A&O x 3. NAD. Cardiovascular exam: Regular rate and rhythm, no murmur, rub or gallop. Respiratory exam: Moderate tenderness to palpation over the lower ribs on the left. She has no pain with anterior posterior compression of the chest. No crepitus. Clear to auscultation bilaterally. No wheezes or stridor. Abdominal exam: Soft, nontender, nondistended, normal bowel sounds. No pain in RUQ or LUQ specifically. No peritoneal signs. Extremity: Moderate tenderness outpatient over the left shoulder. Decreased range of motion secondary to pain. She is neuro vas intact distal to this. Test Results: Clinical Impression(s) from Imaging Studies Ribs w/Chest X-Ray 10/07/20 22:55 IMPRESSION: Acute nondisplaced fractures of the left posterolateral ninth and 10th ribs. Electronically Signed: Mil Hoskins MD at 0:05 EDT Tel , Service support , Shoulder X-Ray 10/07/20 22:55 IMPRESSION: Reidentified impacted moderately displaced fracture of the left humeral neck. Compared to the prior examination there is mild inferior displacement of the humeral head relative to the glenoid which may represent subluxation or dislocation as clinically indicated. Electronically Signed: Mil Hoskins MD at 0:02 EDT Tel , Service support , Emergency Department Course and Treatment: Patient was given fentanyl IM and Zofran p.o. She is resting more comfortably. Patient was placed in a sling. On my review of the x-rays of her chest it does not appear that her humeral head is dislocated. Treatment Plan: Patient reports that her sister from an overdose and does not want any opiate-based medications. She will be discharged with a sling. Instructed to follow-up with her orthopedic surgeon in 1 week for another exam. Follow-up with her primary care physician in 10 to 14 days for her broken ribs. She will be sent home with an incentive spirometer. Return to the emergency department for any worsening symptoms. Disposition: To home in improved and stable condition. Impression: 1. Fall. 2. Left proximal humerus fracture, old. 3. Left ninth and 10th rib fractures. This note was generated with [employer] dictation software. It may contain incorrect words, spelling, and punctuation that were not noted in review of the chart prior to signing ED Disposition - Plan for ED Patient: Instructions: ED Rib Fracture, ED Fracture, Shoulder Referrals: Partha Batres Chi, MD [Primary Care Provider] - 1-2 Weeks Wero Ovalle DO [STAFF PHYSICIAN] - 1 Week
--- NOTE | 2020-10-07 22:55 | RAD_ITS ---
STUDY: X-RAY - LEFT SHOULDER REASON FOR EXAM: Female, 75 years old. Injury/Pain TECHNIQUE: 3 view(s) of the shoulder. COMPARISON: Chest radiograph 09/22/2020. FINDINGS: Reidentified impacted moderately displaced fracture of the left humeral neck. Compared to the prior examination there is inferior displacement of the humeral head relative to the glenoid which may represent subluxation or dislocation as clinically indicated. The visualized soft tissues are unremarkable. RAD/Shoulder min 2 Views IMPRESSION: Reidentified impacted moderately displaced fracture of the left humeral neck. Compared to the prior examination there is mild inferior displacement of the humeral head relative to the glenoid which may represent subluxation or dislocation as clinically indicated. Electronically Signed: Mil Hoskins MD at 0:02 EDT Tel , Service support ,
--- NOTE | 2020-10-07 22:55 | RAD_ITS ---
STUDY: X-RAY CHEST REASON FOR EXAM: Female, 75 years old. Fall TECHNIQUE: 5 views of the chest and left ribs. COMPARISON: 09/22/2020. FINDINGS: Acute nondisplaced fractures of the left posterolateral ribs are noted at the ninth and 10th ribs. Cardiac silhouette poorly assessed. Pulmonary vascularity unremarkable. Aorta unremarkable. Minimal bibasilar opacities most likely represent atelectasis. No large effusion. Upper abdomen unremarkable. Osseous structures intact. No pneumothorax. RAD/Ribs Uni Min 3V w/PA Chest IMPRESSION: Acute nondisplaced fractures of the left posterolateral ninth and 10th ribs. Electronically Signed: Mil Hoskins MD at 0:05 EDT Tel , Service support ,
[2020-10-07] MEDS: fentaNYL 100 MCG/2 ML Ampul 50 MCG IM (23:29)
[2020-10-07] MEDS: Ondansetron ODT 4 MG Tablet PO (23:29)
== END 2020-10-08 01:07 | disposition home or self-care (01) ==
LOC: ED 22:34
PROVIDERS: Emergency Provider Emergency Medicine; PCP Family Medicine Geriatric Medicine
DX: S22.42XA Multiple fractures of ribs, left side, initial encounter for closed fracture (principal); S42.202G Unspecified fracture of upper end of left humerus, subsequent encounter for fracture with delayed healing; W19.XXXA Unspecified fall, initial encounter; Y93.9 Activity, unspecified; Y92.89 Other specified places as the place of occurrence of the external cause; Y99.8 Other external cause status; Z86.73 Personal history of transient ischemic attack (TIA), and cerebral infarction without residual deficits
CPT/HCPCS: 71101; 73030; 96372; 99283

== ENCOUNTER 2020-10-09 17:29 | Outpatient (RCR) | payer MEDICARE, OTHER, SELFPAY ==
[2020-10-09 17:45] LABS: Color, Urine Yellow (Yellow); Glucose, Dipstick Normal (Normal); Ketone-Dipstick Negative (Negative); Leukocyte Esterase-Dipstick 100 /ul (Negative); Nitrite-Dipstick Negative (Negative); Occult Blood-Urine Negative /ul (Negative); Protein-Dipstick Negative (Negative); Urine Bilirubin Dipstick Negative (Negative); Urine Clarity Clear (Clear); Urine Urobilinogen Normal (Normal)
== END 2020-10-09 18:00 | disposition home or self-care (01) ==
LOC: HHLAB 17:29
PROVIDERS: PCP Family Medicine Geriatric Medicine; Referring Provider Family Medicine Geriatric Medicine; Visit Provider Family Medicine Geriatric Medicine
DX: I69.354 Hemiplegia and hemiparesis following cerebral infarction affecting left non-dominant side (principal); J44.9 Chronic obstructive pulmonary disease, unspecified; I10 Essential (primary) hypertension; N39.0 Urinary tract infection, site not specified
CPT/HCPCS: 81002; 87077; 87086; 87088; 87186

== ENCOUNTER → 2020-10-30 15:23 | Outpatient (CLI) | payer MEDICARE, OTHER, SELFPAY ==
[2020-10-07 21:44] VITALS: BMI 27.3
[2020-10-30 16:07] LABS: Anion Gap 4 (5-15); BUN 15 mg/dL (7-18); BUN/Creat Ratio 14.3 RATIO (10-20); Calcium,Total 9.3 mg/dL (8.5-10.1); Chloride 98 mmol/L (98-107); Creatinine, Serum 1.05 mg/dL (0.55-1.02); EST Glomerular Filtration Rate 54 mL/min (>60); Est Glom Filt Rate - Afr Amer 66 mL/min (>60); Glucose 100 mg/dL (74-106); Potassium 3.3 mmol/L (3.5-5.1); Sodium Level 137 mmol/L (136-145)
== END ==
PROVIDERS: PCP Family Medicine Geriatric Medicine; Visit Provider Family Medicine Geriatric Medicine
DX: I10 Essential (primary) hypertension (principal)
CPT/HCPCS: 36415; 80048

== ENCOUNTER 2020-11-08 04:45 | Emergency (ER) | payer MEDICARE, OTHER, SELFPAY ==
--- NOTE | 2020-11-08 04:48 | CT_ITS ---
STUDY: CT HEAD STROKE PROTOCOL W/O CONTRAST INJECTION REASON FOR EXAM: Female, 75 years old. slurred speech, facial droop RADIATION DOSAGE (If Supplied By Facility): CTDIvol = ( ) mGy, DLP = ( ) mGycm TECHNIQUE: Transaxial CT imaging of the brain was performed without administration of intravenous contrast material. Individualized dose optimization techniques were used for this CT. COMPARISON: 09/22/2020 FINDINGS: Normal soft tissue structures. Normal calvarium. There is mild cerebral atrophy with widening of the extra-axial spaces and ventricular dilatation. There are areas of decreased attenuation within the white matter tracts of the supratentorial brain, consistent with microvascular disease changes. Normal basal ganglia and thalami. Normal brainstem. Normal cerebellum. Stable prior lacunar infarct in the right kanchan. There is no intracranial hemorrhage. There are no findings of an acute ischemic infarction. Normal visualized paranasal sinuses. ASPECT score: CT/STROKE Brain/Head without Cont IMPRESSION: Chronic involutional changes of the brain. No significant change from prior N.B. : The above information has been verbally conveyed by Sunday Combs DO to Abilio Malhotra MD, on 11/08/2020 05:03:02 (ET). Electronically Signed: Sunday Combs DO at 5:04 EDT Tel , Service support ,
[2020-11-08 04:55] VITALS: BP 131/62; PULSE 78; RESP 17; TEMP 36.8; O2SAT 98
[2020-11-08 05:01] VITALS: BMI 27.5
--- NOTE | 2020-11-08 05:01 | ED.RN ---
at this time due to concern for unable to determine last known well, call to [facility] not done due to do unknown last well and patient not having any stroke symptoms at this time
--- NOTE | 2020-11-08 05:03 | EKG12_ITS ---
Test Reason : NEURO Blood Pressure : / mmHG Vent. Rate : 072 BPM Atrial Rate : 288 BPM P-R Int : 000 ms QRS Dur : 072 ms QT Int : 400 ms P-R-T Axes : 000 063 047 degrees QTc Int : 438 ms Accelerated Junctional rhythm Abnormal ECG Confirmed by PAM CHISHOLM, SADIA ([id number]), restaurant expeditor TOMER VILLAR ([id number]) on 11/10/2020 8:08:28 AM Referred By: CHANDRIKA Confirmed By:AMIRA OROZCO MD
[2020-11-08 05:05] VITALS: BP 141/61; PULSE 76; RESP 16; TEMP 36.6; O2SAT 98; BMI 27.5
[2020-11-08 05:12] LABS: Absolute Lymphocyte Count 2.47 X10^3/uL (0.83-4.51); Absolute Neutrophil Count 7.1 X10^3/uL (2.0-7.7); Basophil# 0.08 X10^3/uL; Basophil% 0.7 % (0-1); Eosinophil# 0.07 X10^3/uL; Eosinophils% 0.6 % (0-5); Hematocrit 34.7 % (37-47); Hemoglobin 10.5 g/dL (12.0-15.0); Lymphocyte # 2.47 X10^3/ul (0.83-4.51); Lymphocyte % 22.4 % (19-41); Mean Corp Hgb Conc 30.3 g/dL (32-36); Mean Corpuscular Hgb 27.2 pg (27.0-32.0); Mean Corpuscular Volume 89.9 fL (81-99); Mean Platelet Vol. 9.6 fl (6.2-12.0); Monocyte# 1.13 X10^3/uL; Monocyte% 10.2 % (0-10); NRBC Flagged by Analyzer 0 % (0-5); Neutrophil # 7.09 X10^3/uL (2.7-7.7); Neutrophil % 64.3 % (47-70); Platelet Count 366 K/mm3 (150-450); RBC Distribution Width SD 48.9 fl (35.1-43.9); Red Blood Count 3.86 M/mm3 (4.2-5.4)
[2020-11-08 05:21] LABS: Prothrombin Time (Protime)PT. 12.9 SECONDS (11.7-14.9)
[2020-11-08 05:22] LABS: Partial Thromboplast Time 28.1 Seconds (24.1-36.2)
--- NOTE | 2020-11-08 05:27 | ED.VIS.GEN ---
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 Paramedics stated that the patient had reported slurred speech and facial droop. Paramedics stated however they did not see this prehospital. Family called and stated that the patient was having the symptoms. It is unknown when the last time she was normal. EMS stated that one family member stated it was 3 days, one male family member stated it was 1 day and the patient was unsure. The patient stated she woke up this morning and felt like she was getting stabbed in the right arm with a needle for a few seconds. This subsided. She felt a warm dc from her bilateral feet up to her head. That subsided as well. She is unsure if she had any slurred speech. Patient states states she fell yesterday. She has a history of frequent falls after previous stroke. She had a stroke that was worked up as an outpatient. That did show a brainstem stroke on MRI. She stated she is not on blood thinners but takes a baby aspirin. She denies any headache. She denies any visual symptoms. Currently she denies any stroke symptoms at all. She denies any difficulty with her speech. She has chronic weakness in her left arm secondary to her previous humerus fracture in September of this year. Patient has had recent CAT scans after fall with that did not show anything acute. 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 Status: Acute (2) Debility Status: Acute (3) Dysphagia Status: Acute (4) Facial droop due to stroke Status: Acute (5) Left hemiparesis Status: Acute (6) Muscle spasm Status: Acute (7) Anxiety Status: Chronic (8) Chronic obstructive pulmonary disease Status: Chronic (9) Depression Status: Chronic (10) GERD (gastroesophageal reflux disease) Status: Chronic (11) Hyperlipidemia Status: Chronic (12) Hypertension Status: Chronic (13) Hypokalemia Status: Chronic (14) Tobacco abuse Status: Chronic Past Medical History - Allergies and Home Meds Allergies/Adverse Reactions: Allergies acetaminophen [From Darvocet-N] Allergy (Verified 11/08/20 05:08) swelling codeine Allergy (Verified 11/08/20 05:08) swelling Iodinated Contrast Media Allergy (Verified 11/08/20 05:08) swelling iodine Allergy (Verified 11/08/20 05:08) swelling meperidine [From Demerol] Allergy (Verified 11/08/20 05:08) heart stop morphine Allergy (Verified 11/08/20 05:08) swelling propoxyphene [From Darvocet-N] Allergy (Verified 11/08/20 05:08) heart stop Primary Care Physician: Partha Batres Chi, MD [Primary Care Provider] - Prior records reviewed: Yes Past Medical History: - Surgical History: - - Left lumpectomy. Lives: With Family Smoking Status: Current every day smoker Alcohol: None Drugs: None - Family History Maternal Family History: Reports: No pertinent history Paternal Family History: Reports: No pertinent history Review of Systems General: Denies: Chills, Fever, Sweats Eyes: Denies: Visual changes - bilaterally, Diplopia ENT: Denies: Rhinorrhea, Sore throat Cardiovascular: Denies: Chest pain, Palpitations Respiratory: Denies: Dyspnea, Cough, Dyspnea on exertion Gastrointestinal: Denies: Abdominal pain, Nausea, Vomiting, Diarrhea, Melena, Hematochezia Genitourinary: Denies: Dysuria, Hematuria, Frequency Musculoskeletal: Denies: Back pain, Extremity Pain Skin: Denies: Rash, Wounds Neurological: Reports: Weakness - Chronic left arm secondary to humerus fracture. Denies: Headache, Numbness Physical Exam Vital Signs/Narrative: Vital Signs Temp Pulse Resp BP Pulse Ox 11/08/20 05:05 97.8 F 76 16 141/61 H 98 11/08/20 04:55 98.3 F 78 17 131/62 H 98 General: Well nourished, Well developed, No Acute Distress Head: Normocephalic, Atraumatic Eyes: Perrl, EOMI ENT: Moist mucous membranes, No rhinorrhea Neck: Supple, Nontender Cardiovascular: Regular rate, Regular rhythm, No murmurs Respiratory: No distress, CTA bilaterally, Chest nontender Abdomen: Soft, Nontender, Nondistended, Normal bowel sounds Back: Nontender, Normal Inspection Extremities: Nontender, No edema, - - Decrease movement of the left upper arm secondary to humerus fracture. Otherwise well Skin: Normal color, No rash, - Neurological: Alert, Oriented x3, Cranial nerves II-XII grossly intact, Normal Strength, Normal Sensation, - - Patient NIH stroke scale 0. Negative for: Normal DTR, Confused, Disoriented, Inattentive, Hyperalert, Lethargic, Stupor, Coma, Parasthesia, Weakness, Left side facial droop, Right side facial droop Psychological: Normal affect, Normal Mood Diagnostic/Tx/Re-eval - Medical Decision Making Patient had a normal blood sugar for EMS greater than 100. CT head obtained upon arrival. This showed nothing acute. EKG showed sinus rhythm at a rate of 72. Positive motion artifact. No acute ischemia. Lab work obtained. Patient monitored in the department. Lab work showed a mild anemia only. Potassium is mildly low at 3.0. Patient does have chronic low potassium she stated she takes supplementation. Given a dose of 20 mEq of oral potassium here. I do not see any acute stroke symptoms. Her son and did come in. Upon waking up this morning the patient had the episode of pain in her right arm and the diffuse sensation in her body that concerned them. I do not see any acute stroke symptoms. She did have a right sided brainstem stroke and Matilde. Do not feel this is recurrent. Patient will follow-up as an outpatient. ED Disposition - Plan for ED Patient: Disposition: Home or Assisted Living Diagnosis: Arm pain, Sensation disorder, Head injury Instructions: ED Head Injury (Adult) Referrals: Partha Batres Chi, MD [Primary Care Provider] -
[2020-11-08 05:38] LABS: Anion Gap 5 (5-15); BUN 22 mg/dL (7-18); BUN/Creat Ratio 18.6 RATIO (10-20); Calcium,Total 9.2 mg/dL (8.5-10.1); Chloride 101 mmol/L (98-107); Creatinine, Serum 1.18 mg/dL (0.55-1.02); EST Glomerular Filtration Rate 48 mL/min (>60); Est Glom Filt Rate - Afr Amer 58 mL/min (>60); Estimated Creatinine Clearance 39.49 ml/min; Glucose 121 mg/dL (74-106); Sodium Level 140 mmol/L (136-145)
[2020-11-08 05:48] VITALS: BP 126/57; PULSE 72; RESP 17; O2SAT 99
[2020-11-08] MEDS: Potassium Chloride Oral Tablet 20 MEQ PO (05:54)
[2020-11-08 06:44] VITALS: BP 116/75; PULSE 70; RESP 16; O2SAT 98
== END 2020-11-08 06:44 | disposition home or self-care (01) ==
PROVIDERS: Emergency Provider Emergency Medicine; PCP Family Medicine Geriatric Medicine
DX: S09.90XA Unspecified injury of head, initial encounter (principal); R20.2 Paresthesia of skin; M79.603 Pain in arm, unspecified; W19.XXXA Unspecified fall, initial encounter; Y93.9 Activity, unspecified; Y92.9 Unspecified place or not applicable; Y99.9 Unspecified external cause status; E78.5 Hyperlipidemia, unspecified; I10 Essential (primary) hypertension; J44.9 Chronic obstructive pulmonary disease, unspecified; K21.9 Gastro-esophageal reflux disease without esophagitis; F17.200 Nicotine dependence, unspecified, uncomplicated; Z88.5 Allergy status to narcotic agent; I69.392 Facial weakness following cerebral infarction; F41.9 Anxiety disorder, unspecified; I69.354 Hemiplegia and hemiparesis following cerebral infarction affecting left non-dominant side; F32.9 Major depressive disorder, single episode, unspecified
CPT/HCPCS: 70450; 80048; 85025; 85610; 85730; 93005; 99285; A4216

== ENCOUNTER → 2020-11-16 16:40 | Outpatient (CLI) | payer MEDICARE, OTHER, SELFPAY ==
[2020-11-08 05:05] VITALS: BMI 27.5
[2020-11-16 18:09] LABS: Anion Gap 8 (5-15); BUN 13 mg/dL (7-18); BUN/Creat Ratio 12.9 RATIO (10-20); Chloride 101 mmol/L (98-107); Creatinine, Serum 1.01 mg/dL (0.55-1.02); EST Glomerular Filtration Rate 57 mL/min (>60); Est Glom Filt Rate - Afr Amer 69 mL/min (>60); Glucose 109 mg/dL (74-106); Potassium 2.9 mmol/L (3.5-5.1); Sodium Level 137 mmol/L (136-145)
== END ==
PROVIDERS: PCP Family Medicine Geriatric Medicine; Referring Provider Family Medicine Geriatric Medicine; Visit Provider Family Medicine Geriatric Medicine
DX: E87.6 Hypokalemia (principal)
CPT/HCPCS: 36415; 80048

== ENCOUNTER → 2020-11-29 13:23 | Outpatient (CLI) | payer MEDICARE, OTHER, SELFPAY ==
[2020-11-08 05:05] VITALS: BMI 27.5
[2020-11-29 14:06] LABS: Anion Gap 4 (5-15); BUN 13 mg/dL (7-18); BUN/Creat Ratio 18.7 RATIO (10-20); Calcium,Total 8.7 mg/dL (8.5-10.1); Chloride 108 mmol/L (98-107); EST Glomerular Filtration Rate 88 mL/min (>60); Est Glom Filt Rate - Afr Amer 106 mL/min (>60); Glucose 88 mg/dL (74-106); Sodium Level 140 mmol/L (136-145)
== END ==
PROVIDERS: PCP Family Medicine Geriatric Medicine; Referring Provider Family Medicine Geriatric Medicine; Visit Provider Family Medicine Geriatric Medicine
DX: E87.6 Hypokalemia (principal)
CPT/HCPCS: 36415; 80048

== ENCOUNTER → 2020-12-11 15:39 | Outpatient (CLI) | payer MEDICARE, OTHER, SELFPAY ==
--- NOTE | 2020-12-11 15:57 | RAD_ITS ---
STUDY: X-RAY - CERVICAL SPINE REASON FOR EXAM: Female, 75 years old. CERVICAL DISC DISORDER TECHNIQUE: 3 view(s) of the cervical spine were obtained. COMPARISON: None FINDINGS: Normal anterior atlantoaxial articulation. Normal odontoid process. Normal cervical lordosis. There is multi-level endplate spondylosis. There is multi-level degenerative disc disease with multilevel disc space narrowing. Normal visualized intervertebral neuroforamina. The soft tissue structures are unremarkable. RAD/Cerv Spine 2 or 3 Views IMPRESSION: Mild degenerative disc disease lower cervical spine Electronically Signed: Deshawn Vann MD at 8:28 EDT Tel , Service support ,
[2020-12-11 17:22] LABS: Absolute Lymphocyte Count 2.81 X10^3/uL (0.83-4.51); Absolute Neutrophil Count 4.9 X10^3/uL (2.0-7.7); Basophil# 0.07 X10^3/uL; Basophil% 0.8 % (0-1); Eosinophil# 0.09 X10^3/uL; Hematocrit 33.3 % (37-47); Lymphocyte # 2.81 X10^3/ul (0.83-4.51); Lymphocyte % 31.6 % (19-41); Mean Corpuscular Hgb 26.6 pg (27.0-32.0); Mean Corpuscular Volume 88.6 fL (81-99); Mean Platelet Vol. 10.7 fl (6.2-12.0); Monocyte# 0.86 X10^3/uL; Monocyte% 9.7 % (0-10); NRBC Flagged by Analyzer 0 % (0-5); Neutrophil # 4.94 X10^3/uL (2.7-7.7); Neutrophil % 55.6 % (47-70); Platelet Count 414 K/mm3 (150-450); RBC Distribution Width CV 15.6 % (11.6-14.6); RBC Distribution Width SD 50.6 fl (35.1-43.9); Red Blood Count 3.76 M/mm3 (4.2-5.4); White Blood Count 8.9 K/mm3 (4.4-11.0)
[2020-12-11 17:55] LABS: ALB/GLOB Ratio 0.9 RATIO (0.9-2.4); AST(SGOT) 14 U/L (15-37); Alanine Aminotransfer ALT/SGPT 19 U/L (13-56); Albumin, Serum 3.3 g/dL (3.2-5.0); Alkaline Phosphatase 114 U/L (45-117); Anion Gap 4 (5-15); BUN 12 mg/dL (7-18); BUN/Creat Ratio 15.4 RATIO (10-20); Chloride 106 mmol/L (98-107); Creatinine, Serum 0.78 mg/dL (0.55-1.02); EST Glomerular Filtration Rate 77 mL/min (>60); Est Glom Filt Rate - Afr Amer 93 mL/min (>60); Globulin 3.8 g/dL (2.2-4.2); Glucose 110 mg/dL (74-106); Potassium 3.5 mmol/L (3.5-5.1); Protein, Total 7.1 g/dL (6.4-8.2); Sodium Level 137 mmol/L (136-145); Thyroid Stim Hormone (TSH) 0.65 uIU/mL (0.358-3.74)
== END ==
PROVIDERS: PCP Family Medicine Geriatric Medicine; Referring Provider Family Medicine Geriatric Medicine; Visit Provider Family Medicine Geriatric Medicine
DX: R53.83 Other fatigue (principal); M50.80 Other cervical disc disorders, unspecified cervical region; N39.0 Urinary tract infection, site not specified
CPT/HCPCS: 36415; 72040; 80053; 84443; 85025; 87086; 87088

== ENCOUNTER → 2020-12-14 16:47 | Outpatient (CLI) | payer MEDICARE, OTHER, SELFPAY ==
[2020-12-14 17:19] LABS: Absolute Lymphocyte Count 2.99 X10^3/uL (0.83-4.51); Absolute Neutrophil Count 8.2 X10^3/uL (2.0-7.7); Basophil# 0.07 X10^3/uL; Basophil% 0.6 % (0-1); Eosinophil# 0.06 X10^3/uL; Eosinophils% 0.5 % (0-5); Hematocrit 32.1 % (37-47); Hemoglobin 9.6 g/dL (12.0-15.0); Lymphocyte # 2.99 X10^3/ul (0.83-4.51); Lymphocyte % 23.8 % (19-41); Mean Corp Hgb Conc 29.9 g/dL (32-36); Mean Corpuscular Hgb 26.5 pg (27.0-32.0); Mean Corpuscular Volume 88.7 fL (81-99); Mean Platelet Vol. 10.7 fl (6.2-12.0); Monocyte# 1.04 X10^3/uL; Monocyte% 8.3 % (0-10); NRBC Flagged by Analyzer 0 % (0-5); Neutrophil # 8.24 X10^3/uL (2.7-7.7); Neutrophil % 65.6 % (47-70); Platelet Count 433 K/mm3 (150-450); RBC Distribution Width CV 15.8 % (11.6-14.6); RBC Distribution Width SD 51.4 fl (35.1-43.9); Red Blood Count 3.62 M/mm3 (4.2-5.4); White Blood Count 12.6 K/mm3 (4.4-11.0)
[2020-12-14 17:50] LABS: Vitamin B12 916 pg/mL (211-911)
[2020-12-14 18:12] LABS: Ferritin 11 ng/mL (8-252); Iron 17 ug/dL (50-170); Iron Binding Capacity,Total 498 ug/dL (250-450); PERCENT IRON SATURATION 3.4 % (15.0-55.0)
== END ==
PROVIDERS: PCP Family Medicine Geriatric Medicine; Visit Provider Family Medicine Geriatric Medicine
DX: D64.9 Anemia, unspecified (principal)
CPT/HCPCS: 36415; 82607; 82728; 82746; 83540; 83550; 85025

== ENCOUNTER 2021-01-06 10:43 | Emergency (ER) | payer MEDICARE, OTHER, SELFPAY ==
[2021-01-06 10:44] VITALS: BP 119/63; PULSE 63; RESP 14; TEMP 36.1; BMI 26.4
--- NOTE | 2021-01-06 11:04 | CT_ITS ---
STUDY: CT BRAIN WITHOUT CONTRAST REASON FOR EXAM: Female, 75 years old. Fall RADIATION DOSAGE (If Supplied By Facility): CTDIvol = ( 44.99 ) mGy, DLP = ( 762.36 ) mGycm TECHNIQUE: Transaxial CT imaging of the brain was performed without administration of intravenous contrast material. Individualized dose optimization techniques were used for this CT. COMPARISON: 11/08/20 FINDINGS: There is no acute bleed or infarct. There are stable chronic ischemic and atrophic changes. The ventricles are normal in configuration. There is no hydrocephalus. The visualized paranasal sinuses are clear. The mastoid air cells are well aerated. There is no skull fracture. CT/Brain/Head without Contrast IMPRESSION: Stable chronic ischemic and atrophic changes. No acute intracranial abnormality. Electronically Signed: Theo Whitfield MD at 12:28 EDT Tel , Service support ,
--- NOTE | 2021-01-06 11:17 | EDS_ITS ---
HPI History of Present Illness Chief Complaint: Fall Narrative Narrative: Presents reported related to the fall she struck her head she had no LOC she has history of stroke in August causing left arm and leg weakness and some dysarthric speech she lives with her uses her walker she states she has been falling intermittently related to the stroke and use of walker since the stroke, she indicates she falls maybe every other day. he picks her up today she was using her walker and she fell struck the back of her head there was some a little bleeding and she was brought to the hospital. She has no change in mental status no headache no numbness 6 paresthesias she has persistent weakness to the left upper lower extremity and dysarthric speech that are at baseline she indicates that she is at baseline she has no complaints [facility] Medical History Diabetes Mitral valve prolapse TIA (transient ischemic attack) Home Medications propranolol 40 mg tablet 40 mg PO 4X/DAY 08/25/19 [History Last Taken Unknown] trimipramine 25 mg capsule 25 mg PO 4X/DAY 08/25/19 [History Last Taken Unknown] verapamil 120 mg tablet,extended release 120 mg PO DAILY 08/25/19 [History Last Taken Unknown] vilazodone 20 mg tablet 20 mg PO BID 08/25/19 [History Last Taken Unknown] omeprazole 40 mg PO DAILY 08/11/20 [History Last Taken Unknown] baclofen 10 mg PO TID PRN tab 08/28/20 [Rx Last Taken Unknown] furosemide 20 mg PO DAILY tab 08/28/20 [Rx Last Taken Unknown] polysaccharide iron complex 150 mg PO DAILYCM #30 cap 08/28/20 [Rx Last Taken Unknown] potassium chloride 20 meq PO TIDCM #90 tab 08/28/20 [Rx Last Taken Unknown] alprazolam 1 mg PO Q6H 09/22/20 [History Last Taken Unknown] Allergy/AdvReac Type Severity Reaction Status Date / Time acetaminophen Allergy swelling Verified 01/06/21 10:46 [From Darvocet-N] codeine Allergy swelling Verified 01/06/21 10:46 Iodinated Contrast Media Allergy swelling Verified 01/06/21 10:46 iodine Allergy swelling Verified 01/06/21 10:46 meperidine [From Demerol] Allergy heart stop Verified 01/06/21 10:46 morphine Allergy swelling Verified 01/06/21 10:46 propoxyphene Allergy heart stop Verified 01/06/21 10:46 [From Mehran] Surgical History H/O eye surgery H/O mastectomy Social History (Updated 12/15/19 @ 13:[address] Wero Ovalle, DO) Smoking Status: Current every day smoker tobacco type: cigarettes alcohol intake: never ROS ROS ED ROS Narrative Head injury after fall otherwise patient reports no complaints at her neurologic functional status baseline Constitutional Constitutional ED: Reports subjective, sweats and other; Denies chills, fever(s) or weight loss Eyes Eyes: Denies blurry vision or change in vision ENT ENT ED: Denies ear pain Cardiovascular Cardiovascular: Denies chest pain or palpitations Respiratory/Chest Respiratory/Chest: Denies dyspnea Gastrointestinal Gastrointestinal: Denies abdominal pain, nausea or vomiting Genitourinary Genitourinary ED: Denies dysuria or hematuria Musculoskeletal Musculoskeletal: Denies arthralgias or myalgias Integumentary Reports rash; Denies abscess Neurologic Neurologic: Denies weakness Psychiatric Psychiatric: Denies anxiety or depression Endocrine Endocrinology: Denies polydipsia or polyuria Allergic/Immunologic Allergic/Immunologic ED: Denies urticaria EXAM Physical Exam Narrative Exam Narrative: Patient is a contusion to the occipital part of the head she is awake she has some dysarthric speech she is oriented her neck is nontender lungs sound clear heart tones are normal abdomen soft she has contusions of varying ages and bruises to the extremities she has weakness to the left upper extremity and left lower extremity she states is baseline she indicates she did not injure herself she has no long bone pain no back pain she is awake and alert answering questions appropriately her has not arrived yet Discussed with her at a long discussion related to all the above she assures me she is been doing well at home the following is not new, the only issue is she struck her head she is not on a blood thinner that she can recall she is agreeable to head CT and observation and discussion with if he arrives Const Vital Signs: 01/06/21 10:44 Temperature 97.0 F L Temperature Source Temporal Pulse Rate 63 Respiratory Rate 14 Blood Pressure 119/63 Blood Pressure Mean 81 MDM MDM MDM Narrative Medical decision making narrative: Patient's head CT is obtained and shows nothing acute old finding see those reports The patient's did not come to the hospital as we were told he would, he called into staff and said that the patient is too complicated for him to manage at home she keeps falling and he does not feel she can be returned back to the home and is asked that she be admitted for placement Given that ED screening evaluation is obtained Radiography Diagnostic Testing: Radiology Impression Brain CT 01/06/21 11:04 IMPRESSION: Stable chronic ischemic and atrophic changes. No acute intracranial abnormality. Electronically Signed: Theo Whitfield MD at 12:28 EDT Tel , Service support , Discharge Plan Triage Chief Complaint: Fall ED Provider: Ramsey Danielle Dx/Rx/DC Orders Prescriptions: No Action Viibryd 20 mg tablet 20 mg PO BID RF: 0 propranolol 40 mg tablet 40 mg PO 4X/DAY RF: 0 verapamil 120 mg tablet extended release 120 mg PO DAILY RF: 0 trimipramine 25 mg capsule 25 mg PO 4X/DAY RF: 0 omeprazole 40 MG capsule,delayed release(DR/EC) 40 mg PO DAILY RF: 0 polysaccharide iron complex 150 MG capsule 150 mg PO DAILYCM Qty: 30 RF: 0 potassium chloride 20 MEQ tablet 20 meq PO TIDCM Qty: 90 RF: 0 baclofen 10 MG tablet 10 mg PO TID PRN (Reason: Muscle Spasm) RF: 0 furosemide 20 MG tablet 20 mg PO DAILY RF: 0 alprazolam 1 MG tablet 1 mg PO Q6H RF: 0 Primary Care Provider: Partha Batres Chi
--- NOTE | 2021-01-06 12:26 | ED.RN ---
Pt's just called in states she's not going to get any better. She needs to stay at [facility] for therapy. MD Kaur notified.
--- NOTE | 2021-01-06 12:30 | EKG12_ITS ---
Test Reason : ILLNESS Blood Pressure : / mmHG Vent. Rate : 062 BPM Atrial Rate : 062 BPM P-R Int : 184 ms QRS Dur : 076 ms QT Int : 422 ms P-R-T Axes : 054 055 035 degrees QTc Int : 428 ms Normal sinus rhythm Normal ECG Confirmed by PAM CHISHOLM, SADIA ([id number]), proposal editor TOMER VILLAR ([id number]) on 01/08/2021 10:42:17 A M Referred By: ELVIA Confirmed By:AMIRA OROZCO MD
--- NOTE | 2021-01-06 13:10 | RAD_ITS ---
STUDY: X-RAY CHEST REASON FOR EXAM: Female, 75 years old. Shortness of breath TECHNIQUE: Frontal view of the chest COMPARISON: 10/07/20 FINDINGS: The lungs are clear. There are no pleural effusions. There is no pneumothorax. The heart is normal in size. Again noted is an old left proximal humeral fracture. There are surgical clips in the left axilla. RAD/Chest 1 View (Portable) IMPRESSION: No acute thoracic pathology. Electronically Signed: Theo Whitfield MD at 14:05 EDT Tel , Service support ,
[2021-01-06 13:17] LABS: Mucous, Urine 0 SEEN /hpf (<or=2+); Red Blood Cells-Urine 0 SEEN /hpf (0-5)
[2021-01-06 13:23] LABS: Color, Urine Yellow (Yellow); Glucose, Dipstick Normal (Normal); Ketone-Dipstick Negative (Negative); Leukocyte Esterase-Dipstick 100 /ul (Negative); Nitrite-Dipstick Negative (Negative); Occult Blood-Urine Negative /ul (Negative); Protein-Dipstick Negative (Negative); Urine Bilirubin Dipstick Negative (Negative); Urine Clarity Cloudy (Clear); Urine Urobilinogen Normal (Normal)
[2021-01-06 13:27] VITALS: BP 149/85; PULSE 65; RESP 15
[2021-01-06] MEDS: 0.9% Normal Saline 1,000 ML 150 ML IV (13:29)
[2021-01-06 13:43] LABS: Bacteria 2+ /hpf (None Seen); Squamous Epithelial Cells - UA 0-5 SEEN /hpf (5-10); White Blood Cells 0-5 SEEN /hpf (0-5)
[2021-01-06 13:43] LABS: Anion Gap 7 (5-15); BUN 13 mg/dL (7-18); BUN/Creat Ratio 20.2 RATIO (10-20); Calcium,Total 8.5 mg/dL (8.5-10.1); Chloride 107 mmol/L (98-107); Creatinine, Serum 0.64 mg/dL (0.55-1.02); EST Glomerular Filtration Rate 95 mL/min (>60); Est Glom Filt Rate - Afr Amer 115 mL/min (>60); Estimated Creatinine Clearance 46.33 ml/min; Glucose 98 mg/dL (74-106); Potassium 4.1 mmol/L (3.5-5.1); Sodium Level 137 mmol/L (136-145)
[2021-01-06 13:57] LABS: Absolute Lymphocyte Count 2.89 X10^3/uL (0.83-4.51); Absolute Neutrophil Count 6.8 X10^3/uL (2.0-7.7); Basophil# 0.07 X10^3/uL; Basophil% 0.6 % (0-1); Eosinophil# 0.07 X10^3/uL; Eosinophils% 0.6 % (0-5); Hematocrit 32.3 % (37-47); Hemoglobin 9.6 g/dL (12.0-15.0); Lymphocyte # 2.89 X10^3/ul (0.83-4.51); Lymphocyte % 26.1 % (19-41); Mean Corp Hgb Conc 29.7 g/dL (32-36); Mean Corpuscular Hgb 25.3 pg (27.0-32.0); Mean Corpuscular Volume 85.2 fL (81-99); Mean Platelet Vol. 9.9 fl (6.2-12.0); Monocyte# 1.06 X10^3/uL; Monocyte% 9.6 % (0-10); NRBC Flagged by Analyzer 0 % (0-5); Neutrophil # 6.79 X10^3/uL (2.7-7.7); Neutrophil % 61.3 % (47-70); Platelet Count 340 K/mm3 (150-450); RBC Distribution Width CV 15.8 % (11.6-14.6); RBC Distribution Width SD 48.8 fl (35.1-43.9); Red Blood Count 3.79 M/mm3 (4.2-5.4); White Blood Count 11.1 K/mm3 (4.4-11.0)
[2021-01-06 14:17] LABS: BNP,B-Type NATRIURETIC PEPTIDE 77.6 pg/mL (0-100)
[2021-01-06 14:34] VITALS: PULSE 65; RESP 15
== END 2021-01-06 14:35 | disposition home or self-care (01) ==
LOC: ED 12:01
PROVIDERS: Emergency Provider Emergency Medicine; PCP Family Medicine Geriatric Medicine
DX: S00.93XA Contusion of unspecified part of head, initial encounter (principal); W18.09XA Striking against other object with subsequent fall, initial encounter; Y93.9 Activity, unspecified; Y92.89 Other specified places as the place of occurrence of the external cause; Y99.9 Unspecified external cause status; E11.9 Type 2 diabetes mellitus without complications; F17.210 Nicotine dependence, cigarettes, uncomplicated; I34.1 Nonrheumatic mitral (valve) prolapse; Z86.73 Personal history of transient ischemic attack (TIA), and cerebral infarction without residual deficits; I67.82 Cerebral ischemia; R06.02 Shortness of breath
CPT/HCPCS: 70450; 71045; 80048; 81001; 83880; 84484; 85025; 93005; 96360; 96361; 99283; J7030; A4216

== ENCOUNTER 2021-01-19 12:25 | Inpatient (IN) | payer MEDICARE, OTHER, SELFPAY ==
[2021-01-19 12:27] VITALS: BP 138/64; PULSE 114; RESP 16; TEMP 36.6; O2SAT 96; BMI 23.6
--- NOTE | 2021-01-19 12:43 | EDS_ITS ---
HPI HPI - Fall History of Present Illness Chief Complaint: Fall Detail of Chief Complaint: Complaining of thoracic spine pain Informant: patient Occured/Mechanism Occurred: Yesterday Mechanism/Context: Yes same level fall Pain/Injury Pain Location: back Quality of Pain: Sharp Current Severity: Mild Maximum Severity: Mild Narrative Narrative: 75-year-old female history of diabetes, strokes and prior PR. Has had a history of frequent falls recently. States yesterday at home she bent over lost her balance fell and is now complaining of thoracic back pain. Also states she did hit her head. Denies any LOC. No headache. Denies any neck or lumbar back pain. Denies any hip pain. Denies any recent illness. There is also a concern for social issues going on at home. Adult Protective Services will be consulted. Prior similar symptoms: Yes Recent Illness/Hospitalization: No PFSH PFSH Medical History Diabetes Mitral valve prolapse TIA (transient ischemic attack) Home Medications propranolol 40 mg tablet 40 mg PO 4X/DAY 08/25/19 [History Last Taken Unknown] trimipramine 25 mg capsule 25 mg PO 4X/DAY 08/25/19 [History Last Taken Unknown] verapamil 120 mg tablet,extended release 120 mg PO DAILY 08/25/19 [History Last Taken Unknown] vilazodone 20 mg tablet 20 mg PO BID 08/25/19 [History Last Taken Unknown] omeprazole 40 mg PO DAILY 08/11/20 [History Last Taken Unknown] baclofen 10 mg PO TID PRN tab 08/28/20 [Rx Last Taken Unknown] furosemide 20 mg PO DAILY tab 08/28/20 [Rx Last Taken Unknown] polysaccharide iron complex 150 mg PO DAILYCM #30 cap 08/28/20 [Rx Last Taken Unknown] potassium chloride 20 meq PO TIDCM #90 tab 08/28/20 [Rx Last Taken Unknown] alprazolam 1 mg PO Q6H 09/22/20 [History Last Taken Unknown] Allergy/AdvReac Type Severity Reaction Status Date / Time acetaminophen Allergy swelling Verified 01/19/21 12:31 [From Darvocet-N] codeine Allergy swelling Verified 01/19/21 12:31 Iodinated Contrast Media Allergy swelling Verified 01/19/21 12:31 iodine Allergy swelling Verified 01/19/21 12:31 meperidine [From Demerol] Allergy heart stop Verified 01/19/21 12:31 morphine Allergy swelling Verified 01/19/21 12:31 propoxyphene Allergy heart stop Verified 01/19/21 12:31 [From Darvocet-N] Surgical History H/O eye surgery H/O mastectomy Social History Smoking Status: Current every day smoker tobacco type: cigarettes alcohol intake: never ROS ROS ED ROS Narrative Patient denies any recent illness. Review of Systems ROS Unobtainable: Denies due to encephalopathy Constitutional Constitutional ED: Denies chills or fever(s) Eyes Eyes: Denies change in vision ENT ENT ED: Denies ear pain or sore throat Cardiovascular Cardiovascular: Denies chest pain Respiratory/Chest Respiratory/Chest: Denies cough or dyspnea Gastrointestinal Gastrointestinal: Denies abdominal pain, diarrhea, nausea or vomiting Genitourinary Genitourinary ED: Denies dysuria Musculoskeletal Musculoskeletal: Reports back pain; Denies myalgias Integumentary Denies rash Neurologic Neurologic: Reports weakness; Denies headache(s) Psychiatric Psychiatric: Denies depression Endocrine Endocrinology: Denies polyuria Hematologic/Lymphatic Hematologic/Lymphatic: Denies easy bruising Allergic/Immunologic Allergic/Immunologic ED: Denies urticaria EXAM Physical Exam Narrative Exam Narrative: Elderly female. Lying in bed. Vital signs are stable afebrile. H EENT exam dry reactive light no facial droop. No facial trauma but back wrist gallop is a small contusion with dried blood. No obvious laceration. No hematoma. C-spine nontender. Trachea midline. Lungs clear to auscultation bilaterally. Heart regular rhythm rate about 100 no murmur. Chest wall nontender. Abdomen soft nontender normal bowel sounds no peritoneal signs. Pelvic girdle intact. No shortening or rotation either lower extremity. 1+ pitting edema bilaterally. She has midthoracic tenderness. She is kyphotic. There is no bruising. Cervical and lumbar spine are nontender. Neurologically she is awake and alert. She is weak on the left upper and lower extremity from prior strokes. She is answering questions and following commands. Const Vital Signs: 01/19/21 12:27 01/19/21 12:34 01/19/21 14:30 Temperature 98 F Temperature Source Temporal Pulse Rate 114 H 72 Respiratory Rate 16 16 Respiratory Effort Normal Non-Labored Respiratory Depth Normal Respiratory Pattern Normal Blood Pressure 138/64 H 124/71 H Blood Pressure Mean 88 88 Pulse Ox 96 97 Oxygen Delivery Method Room Air Room Air Room Air 01/19/21 15:11 Temperature 98 F Temperature Source Oral Pulse Rate 79 Respiratory Rate 16 Respiratory Effort Respiratory Depth Respiratory Pattern Blood Pressure 134/74 H Blood Pressure Mean 94 Pulse Ox 97 Oxygen Delivery Method Room Air Positive well nourished and well developed General Appearance ED: well developed HEENT Reports normocephalic HEENT Narrative: Dried blood small contusion posterior scalp trauma; Negative for atraumatic or tenderness Eyes PERRL and EOMs intact bilaterally Neck full ROM, no lymphadenopathy and supple General: Negative for tenderness Chest Wall inspection of chest normal and palpation of chest normal Resp normal respiratory effort, no retractions and clear to auscultation bilaterally Cardio regular rate, regular rhythm, S1 normal heart sound, S2 normal heart sound and no murmurs GI non-tender, non-distended and no masses Auscultation: normoactive bowel sounds Palpation: soft Back/Spine no CVA tenderness General Back: Negative for CVA tenderness Cervical Spine: Negative for cervical spine tenderness Thoracic Spine / Upper Back: thoracic spinal tenderness Lumbar Spine / Lower Back: Negative for lumbar spinal tenderness or paraspinal muscle tenderness Extremity Extremity Narrative: No acute tenderness to the extremities. No deformities. No shortening or rotation either hip. She does have 1+ pitting edema both lower extremities. She is weak on the left compared to the right. That is from prior strokes. Neuro oriented x3 and moves all extremities Neuro Narrative: Left-sided weakness from prior strokes. Sensorium / Orientation: alert; Negative for lethargic or stuporous Psych mental status grossly normal Skin Lesions: no lesions Rashes: no rashes MDM MDM MDM Narrative Medical decision making narrative: Elderly female history of frequent falls. Plan mid back pain which will x-ray and also her chest. Since Adult Protective Services can be notified by nursing due to reported issues going on at the house. soaker soda worker spoke to the patient and her . There is multiple situations going on at home. Patient is having failure to thrive and unable to care for. I spoke to the hospitalist about admission. Lab Data Attestation: I reviewed the patient's lab results. Lab results narrative: White count 10. Hemoglobin 10.8 which is her baseline. Electrolytes Benign normal creatinine. Otherwise unremarkable. Labs: Laboratory Results - last 24 hr 01/19/21 01/19/21 14:20 14:20 WBC 10.1 RBC 4.20 Hgb 10.8 L Hct 35.0 L MCV 83.3 MCH 25.7 L MCHC 30.9 L RDW Std Deviation 48.6 H RDW Coeff of Tesfaye 16.1 H Plt Count 396 MPV 10.8 Sodium 139 Potassium 3.6 Chloride 106 Carbon Dioxide 24.0 Anion Gap 9 BUN 12 Creatinine 0.59 Estim Creat Clear Calc 35.45 Est GFR (MDRD) Af Amer 128 Est GFR (MDRD) Non-Af 106 BUN/Creatinine Ratio 20.3 H Glucose 111 H Calcium 8.7 Total Bilirubin 0.30 AST 61 H ALT 41 Alkaline Phosphatase 116 Total Protein 6.7 Albumin 3.1 L Globulin 3.6 Albumin/Globulin Ratio 0.9 Radiography Diagnostic Testing: Radiology Impression Chest X-Ray 01/19/21 13:30 IMPRESSION: No radiographic evidence of acute cardiopulmonary disease. Left rib and left humeral fractures again noted. at 1426 Reported and signed by: Zac Kang MD Electronically Signed: Zac Kang MD at 14:25 EDT Tel , Service support , Chest x-ray portable 1 view shows no acute abnormality. No infiltrate. No obvious rib fractures. Interpreted by myself. Radiologist is reading a left rib the left humerus fracture which was seen on prior. Thoracic spine 3 views shows no acute abnormality. No fracture. Interpreted by myself. Discharge Plan Triage Chief Complaint: Fall ED Provider: Tushar Pollard Dx/Rx/DC Orders Clinical Impression: Falls, Adult failure to thrive, History of stroke in prior 3 months Primary Care Provider: Partha Batres Chi Disposition Disposition: Acute Care [facility]
--- NOTE | 2021-01-19 13:30 | RAD_ITS ---
History: Trauma EXAMINATION/TECHNIQUE: XR Chest 2 Views: COMPARISON: January 06, 2021 FINDINGS: LINES/DEVICES: None. LUNGS: No consolidation, edema or effusion. No pneumothorax. MEDIASTINUM AND CARDIOVASCULAR STRUCTURES: Cardiac silhouette not enlarged. Central airways and mediastinal contour are unremarkable. BONES AND SOFT TISSUES: Healing rib fractures are noted on the left. Fracture of the proximal left humerus again seen. RAD/Chest PA and Lateral IMPRESSION: No radiographic evidence of acute cardiopulmonary disease. Left rib and left humeral fractures again noted. at 1426 Reported and signed by: Zac Kang MD Electronically Signed: Zac Kang MD at 14:25 EDT Tel , Service support ,
--- NOTE | 2021-01-19 13:30 | RAD_ITS ---
STUDY: X-RAY - THORACIC SPINE REASON FOR EXAM: Female, 75 years old. fall and pain TECHNIQUE: 4 view(s) of the thoracic spine were obtained. COMPARISON: None. FINDINGS: Normal kyphosis of the thoracic spine. There is no substantial scoliosis. Normal thoracic vertebrae and endplates. Normal disc space heights. The soft tissue structures are unremarkable. RAD/Thoracic Spine Min 4 Views IMPRESSION: Normal x-ray examination of the thoracic spine. Electronically Signed: Deshawn Vann MD at 15:46 EDT Tel , Service support ,
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
[2021-01-19 14:30] VITALS: BP 124/71; PULSE 72; RESP 16; O2SAT 97
[2021-01-19 14:37] LABS: Hemoglobin 10.8 g/dL (12.0-15.0); Mean Corp Hgb Conc 30.9 g/dL (32-36); Mean Corpuscular Hgb 25.7 pg (27.0-32.0); Mean Corpuscular Volume 83.3 fL (81-99); Mean Platelet Vol. 10.8 fl (6.2-12.0); Platelet Count 396 K/mm3 (150-450); RBC Distribution Width CV 16.1 % (11.6-14.6); RBC Distribution Width SD 48.6 fl (35.1-43.9); White Blood Count 10.1 K/mm3 (4.4-11.0)
[2021-01-19 14:54] LABS: ALB/GLOB Ratio 0.9 RATIO (0.9-2.4); AST(SGOT) 61 U/L (15-37); Alanine Aminotransfer ALT/SGPT 41 U/L (13-56); Albumin, Serum 3.1 g/dL (3.2-5.0); Alkaline Phosphatase 116 U/L (45-117); Anion Gap 9 (5-15); BUN 12 mg/dL (7-18); BUN/Creat Ratio 20.3 RATIO (10-20); Calcium,Total 8.7 mg/dL (8.5-10.1); Chloride 106 mmol/L (98-107); Creatinine, Serum 0.59 mg/dL (0.55-1.02); EST Glomerular Filtration Rate 106 mL/min (>60); Est Glom Filt Rate - Afr Amer 128 mL/min (>60); Estimated Creatinine Clearance 35.45 ml/min; Globulin 3.6 g/dL (2.2-4.2); Glucose 111 mg/dL (74-106); Potassium 3.6 mmol/L (3.5-5.1); Protein, Total 6.7 g/dL (6.4-8.2); Sodium Level 139 mmol/L (136-145)
--- NOTE | 2021-01-19 15:09 | ED.RN ---
REJI CO SO CONTACTED TO COME SPEAK WITH THE PT D/T SAFETY CONCERNS
[2021-01-19 15:11] VITALS: BP 134/74; PULSE 79; RESP 16; TEMP 36.6; O2SAT 97
--- NOTE | 2021-01-19 15:13 | NURSING ---
DR SYMONE WELLS
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
--- NOTE | 2021-01-19 15:18 | NURSING ---
PCU OBS ERICA CP, CHF, CHRONIC ANEMIA, HYPONATREMIA
[2021-01-19 15:28] VITALS: BP 121/74; PULSE 69; RESP 16; TEMP 36.4; O2SAT 96
--- NOTE | 2021-01-19 15:30 | NURSING ---
MED SURG JOPPERI FALLS, FAILURE TO THRIVE, OLD CVA
--- NOTE | 2021-01-19 16:11 | ED.RN ---
Awaiting 's arrival prior to admitting pt. SW and deputy would like too interview pt and together. PT aware.
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
--- NOTE | 2021-01-19 17:00 | CM.ED ---
SOCIAL WORK arrived to ER. Upon entering patient's room with , laughed and asked does she have a gun? Deputy Main was made aware of 's arrival. Upon lengthy conversation with all parties. Patient in agreement to rehab prior to home going on the condition that son go and stay with her brother, Henry. Ying was contacted by patient and patient's and son to be transported to Stepan's home tomorrow. Patient requesting referral to Rehab/TCU here at [facility]. Call to juaquin De Leon message regarding referral. APS to be updated upon discharge. Contact number for patient's brother, Stepan Gillespie [phone]. Plan: Admit, plan for rehab prior to home going Valentin Mcgraw MSW, INTERNET MARKETER
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
[2021-01-19 17:24] VITALS: BMI 21.6
[2021-01-19 17:51] VITALS: BP 135/79; PULSE 107; RESP 18; TEMP 36.8; O2SAT 95
[2021-01-19] MEDS: Propranolol 40 MG Tablet PO (18:12)
--- NOTE | 2021-01-19 18:45 | CM.ED ---
SOCIAL WORK Received call from Haley with TCU/Rehab. Haley to review referral on Friday. Valentin Mcgraw, RESTORATIVE COORDINATOR, SACK SEWER
[2021-01-19] MEDS: Meclizine HCl 25 MG Tablet PO (20:40)
[2021-01-19] MEDS: ALPRAZolam 0.5 MG Tablet 1 MG PO (20:40)
[2021-01-19] MEDS: Acetaminophen 325 MG Tablet 650 MG PO (20:40)
[2021-01-19] MEDS: VILAZODONE HYDROCHLORIDE 10 MG TABLET 20 MG PO (20:41)
[2021-01-19] MEDS: Potassium Chloride Oral Tablet 10 MEQ PO (20:42)
[2021-01-19 20:53] VITALS: BP 126/66; PULSE 79; RESP 16; TEMP 36.8; O2SAT 95
[2021-01-19 23:05] LABS: Color, Urine Yellow (Yellow); Glucose, Dipstick Normal (Normal); Leukocyte Esterase-Dipstick 100 /ul (Negative); Mucous, Urine 0 SEEN /hpf (<or=2+); Nitrite-Dipstick Negative (Negative); Occult Blood-Urine Negative /ul (Negative); Protein-Dipstick Negative (Negative); Red Blood Cells-Urine 0 SEEN /hpf (0-5); Specific Gravity, Urine 1.015 (1.002-1.030); Urine Bilirubin Dipstick Negative (Negative); Urine Clarity Clear (Clear); Urine Urobilinogen 1 mg/dl (Normal); Urine pH 6.5 (5.0 - 8.0)
[2021-01-19 23:08] LABS: Ketone-Dipstick 150 mg/dl (Negative)
[2021-01-19 23:11] LABS: Bacteria RARE /hpf (None Seen); Squamous Epithelial Cells - UA 0-5 SEEN /hpf (5-10); White Blood Cells 10-25 SEEN /hpf (0-5)
[2021-01-20] MEDS: Potassium Chloride Oral Tablet 10 MEQ PO ×3 (04:39→21:08)
[2021-01-20] MEDS: ALPRAZolam 0.5 MG Tablet 1 MG PO ×2 (04:39→16:12)
[2021-01-20 04:46] VITALS: BP 124/63; PULSE 79; RESP 16; TEMP 36.6; O2SAT 96
[2021-01-20 08:12] LABS: Anion Gap 8 (5-15); BUN 7 mg/dL (7-18); BUN/Creat Ratio 14.7 RATIO (10-20); Calcium,Total 8.7 mg/dL (8.5-10.1); Chloride 107 mmol/L (98-107); Creatinine, Serum 0.48 mg/dL (0.55-1.02); EST Glomerular Filtration Rate 136 mL/min (>60); Est Glom Filt Rate - Afr Amer 164 mL/min (>60); Estimated Creatinine Clearance 39.04 ml/min; Glucose 104 mg/dL (74-106); Potassium 3.3 mmol/L (3.5-5.1); Sodium Level 142 mmol/L (136-145)
[2021-01-20] MEDS: Glucerna Shake 120 ML LIQUID PO ×3 (08:22→17:23)
[2021-01-20] MEDS: Ibuprofen 400 MG Tablet PO (08:23)
[2021-01-20] MEDS: Propranolol 40 MG Tablet PO ×4 (08:24→21:08)
[2021-01-20] MEDS: Pantoprazole Sodium 40 MG Tablet PO (08:25)
[2021-01-20] MEDS: VILAZODONE HYDROCHLORIDE 10 MG TABLET 20 MG PO ×2 (08:26→21:08)
[2021-01-20] MEDS: Verapamil SR 240 MG Tablet 120 MG PO (08:27)
[2021-01-20] MEDS: Aspirin E.C. 81 MG Tablet PO (08:28)
[2021-01-20 10:46] VITALS: BP 123/55; PULSE 77; RESP 18; TEMP 37.3; O2SAT 93
--- NOTE | 2021-01-20 11:23 | NURSING ---
LATE ENTRY 0900 - PT TOLD THIS NURSE EARLIER THAT SHE WAS HAVING BURNING WITH URINATION & FEELINGS OF RETENTION. DR ASHBY MADE ROUNDS & MADE AWARE. WHEN ASKED @ THAT TIME, BUT DENIED VOICING THOSE SYMPTOMS.
[2021-01-20 13:05] VITALS: BP 115/58
--- NOTE | 2021-01-20 13:40 | PN.HOSP_ITS ---
Subjective Subjective Complained of dizziness. Objective Data Objective Data Vital Signs: Vital Signs Temp Pulse Resp BP Pulse Ox 37.3 C H 77 18 123/55 H 93 01/20/21 10:46 01/20/21 10:46 01/20/21 10:46 01/20/21 10:46 01/20/21 10:46 Oxygen Delivery Method Room Air Weight: 53.666 kg Body Mass Index (BMI) 21.6 Intake & Output: Intake and Output for Last 24 Hours 01/18/21 01/19/21 01/20/21 23:59 23:59 23:59 Intake Total 260 / 260 Output Total 400 / 400 600 / 600 Balance -400 / -400 -340 / -340 Lab / Micro Data Result Diagrams: 01/19/21 14:20 01/20/21 06:25 Labs: Laboratory Results - last 24 hr 01/19/21 01/19/21 01/19/21 14:20 14:20 22:40 WBC 10.1 RBC 4.20 Hgb 10.8 L Hct 35.0 L MCV 83.3 MCH 25.7 L MCHC 30.9 L RDW Std Deviation 48.6 H RDW Coeff of Tesfaye 16.1 H Plt Count 396 MPV 10.8 Sodium 139 Potassium 3.6 Chloride 106 Carbon Dioxide 24.0 Anion Gap 9 BUN 12 Creatinine 0.59 Estim Creat Clear Calc 35.45 Est GFR (MDRD) Af Amer 128 Est GFR (MDRD) Non-Af 106 BUN/Creatinine Ratio 20.3 H Glucose 111 H Calcium 8.7 Total Bilirubin 0.30 AST 61 H ALT 41 Alkaline Phosphatase 116 Total Protein 6.7 Albumin 3.1 L Globulin 3.6 Albumin/Globulin Ratio 0.9 Urine Color Yellow Urine Clarity Clear Urine pH 6.5 Ur Specific [place] 1.015 Urine Protein Negative Urine Glucose (UA) Normal Urine Ketones 150 A* Urine Occult Blood Negative Urine Nitrite Negative Urine Bilirubin Negative Urine Urobilinogen 1 H Ur Leukocyte Esterase 100 H Urine RBC 0 SEEN Urine WBC 10-25 SEEN Ur Squamous Epith Cells 0-5 SEEN Urine Bacteria RARE Urine Mucus 0 SEEN 01/20/21 06:25 WBC RBC Hgb Hct MCV MCH MCHC RDW Std Deviation RDW Coeff of Tesfaye Plt Count MPV Sodium 142 Potassium 3.3 L Chloride 107 Carbon Dioxide 27.0 Anion Gap 8 BUN 7 Creatinine 0.48 L Estim Creat Clear Calc 39.04 Est GFR (MDRD) Af Amer 164 Est GFR (MDRD) Non-Af 136 BUN/Creatinine Ratio 14.7 Glucose 104 Calcium 8.7 Total Bilirubin AST ALT Alkaline Phosphatase Total Protein Albumin Globulin Albumin/Globulin Ratio Urine Color Urine Clarity Urine pH Ur Specific [place] Urine Protein Urine Glucose (UA) Urine Ketones Urine Occult Blood Urine Nitrite Urine Bilirubin Urine Urobilinogen Ur Leukocyte Esterase Urine RBC Urine WBC Ur Squamous Epith Cells Urine Bacteria Urine Mucus Radiography Diagnostic Testing: Radiology Impression Chest X-Ray 01/19/21 13:30 IMPRESSION: No radiographic evidence of acute cardiopulmonary disease. Left rib and left humeral fractures again noted. at 1426 Reported and signed by: Zac Kang MD Electronically Signed: Zac Kang MD at 14:25 EDT Tel , Service support , Thoracic Spine X-Ray 01/19/21 13:30 IMPRESSION: Normal x-ray examination of the thoracic spine. Electronically Signed: Deshawn Vann MD at 15:46 EDT Tel , Service support , Physical Exam Const alert and no apparent distress Resp normal respiratory effort and clear to auscultation bilaterally Cardio regular rate, regular rhythm, S1 normal heart sound and S2 normal heart sound GI normal to inspection, nondistended, normoactive bowel sounds, soft to palpation, non-tender and non-distended Extremity normal to inspection Assessment & Plan Assessment/Plan (1) Debility: PLAN: 1. Debility * Complicated by the patient is prior stroke. Patient is falling at home. * PT OT evaluate and treat * has expressed already that he is unable to adequately care for her at home, at least at this time * Anticipate patient require alf facility upon discharge 2. Anxiety * Patient already on Viibryd. Patient also on alprazolam 1 mg 4 times daily. With the patient's falls and underlying dementia, I recommend this being weaned off. They recommended taper, which I am initiating now, would be 1mg 3 times daily as needed for 1 week, then twice daily as needed for a week, then once daily as needed for a week, then every other day for 3 doses as needed then stop. 3. History of stroke * Complicates care and recovery * Continue with aspirin 4. Disposition * Anticipate that the patient will qualify for SNF * Case management to further assist on the floor. * Patient may need an APS referral Charges/Coding Visit Charges OBSV E&M: 10926 Subsequent observation care L2
--- NOTE | 2021-01-20 14:12 | NURSING ---
LATE ENTRY - 1330 - PT C/O FEELING DIZZY. BP 115/58. PT STATES TAKES MECLIZINE PRN @ HOME. DR ASHBY NOTIFIED OF SAME. NO NEW ORDERS @ THIS TIME.
[2021-01-20] MEDS: Meclizine HCl 25 MG Tablet PO (16:12)
[2021-01-20] MEDS: Acetaminophen 325 MG Tablet 650 MG PO (16:12)
[2021-01-20 16:24] VITALS: BP 120/60; PULSE 66; RESP 18; TEMP 37.1; O2SAT 95
--- NOTE | 2021-01-20 16:46 | NURSING ---
PT VOIDING FREQUENTLY, APPROX 100MLS @ A TIME. BLADDER SCAN SHOWED 242ML. ALSO, SPOKE TO PHARMACY REGARDING OBTAINING PTS HOME MED TRIMIPRAMINE - THEY ARE UNABLE TO OBTAIN UNTIL . DR ASHBY MADE AWARE OF BOTH. NO NEW ORDERS.
[2021-01-20 23:00] VITALS: BP 125/50; PULSE 63; RESP 16; TEMP 36.7; O2SAT 99
[2021-01-21 03:09] VITALS: BP 127/67; PULSE 64; RESP 18; TEMP 36.4; O2SAT 95
[2021-01-21] MEDS: Potassium Chloride Oral Tablet 10 MEQ PO ×3 (06:06→21:37)
[2021-01-21 07:58] VITALS: BP 111/55; PULSE 68; RESP 16; TEMP 37.1; O2SAT 96
[2021-01-21] MEDS: Aspirin E.C. 81 MG Tablet PO (08:13)
[2021-01-21] MEDS: Iron Polysaccharide Complex 150 MG CAPSULE PO (08:13)
[2021-01-21] MEDS: Glucerna Shake 120 ML LIQUID PO (08:16)
[2021-01-21] MEDS: VILAZODONE HYDROCHLORIDE 10 MG TABLET 20 MG PO ×2 (09:22→21:37)
[2021-01-21] MEDS: Pantoprazole Sodium 40 MG Tablet PO (09:22)
[2021-01-21] MEDS: Verapamil SR 240 MG Tablet 120 MG PO (09:22)
[2021-01-21] MEDS: Acetaminophen 325 MG Tablet 650 MG PO ×2 (09:22→17:50)
[2021-01-21] MEDS: Propranolol 40 MG Tablet PO ×4 (09:23→21:37)
--- NOTE | 2021-01-21 10:49 | PN.HOSP_ITS ---
Subjective Subjective Complains of right-sided neck pain. No other complaints. Objective Data Objective Data Vital Signs: Vital Signs Temp Pulse Resp BP Pulse Ox 37.1 C 68 16 111/55 L 96 01/21/21 07:58 01/21/21 07:58 01/21/21 07:58 01/21/21 07:58 01/21/21 07:58 Oxygen Delivery Method Room Air Weight: 53.666 kg Body Mass Index (BMI) 21.6 Intake & Output: Intake and Output for Last 24 Hours 01/19/21 01/20/21 01/21/21 23:59 23:59 23:59 Intake Total 260 / 260 Output Total 400 / 400 1350 / 1350 300 / 300 Balance -400 / -400 -1090 / -1090 -300 / -300 Lab / Micro Data Result Diagrams: 01/19/21 14:20 01/20/21 06:25 Physical Exam Const alert HEENT Head and Scalp: normocephalic Neck no lymphadenopathy Resp normal respiratory effort and clear to auscultation bilaterally Cardio regular rate, regular rhythm, S1 normal heart sound and S2 normal heart sound GI normal to inspection, nondistended, normoactive bowel sounds, non-tender and non-distended Assessment & Plan Assessment/Plan (1) Debility: PLAN: 1. Debility * Complicated by the patient is prior stroke. Patient is falling at home. * PT OT evaluate and treat * has expressed already that he is unable to adequately care for her at home, at least at this time * Anticipate patient require long term facility upon discharge 2. Anxiety * Patient already on Viibryd. Patient also on alprazolam 1 mg 4 times daily. With the patient's falls and underlying dementia, I recommend this being weaned off. They recommended taper, which I am initiating now, would be 1mg 3 times daily as needed for 1 week, then twice daily as needed for a week, then once daily as needed for a week, then every other day for 3 doses as needed then stop. 3. History of stroke * Complicates care and recovery * Continue with aspirin 4. Disposition * Anticipate that the patient will qualify for SNF * Case management to further assist on the floor. * Patient may need an APS referral Charges/Coding Visit Charges Inpatient E&M: 07013 Subs Hosp L2
[2021-01-21 13:18] VITALS: BP 114/47; PULSE 66; RESP 16; TEMP 36.6; O2SAT 95
[2021-01-21] MEDS: ALPRAZolam 0.5 MG Tablet 1 MG PO (13:28)
[2021-01-21] MEDS: Ibuprofen 400 MG Tablet PO (13:28)
[2021-01-21] MEDS: 0.9% Saline Lock 10 ML Syringe IV (18:26)
[2021-01-21] MEDS: Ondansetron 4 MG/2 ML Vial IV (18:26)
[2021-01-21 19:50] VITALS: BP 151/81; PULSE 67; RESP 16; TEMP 36.7; O2SAT 95
[2021-01-22 02:00] VITALS: BP 127/68; PULSE 62; RESP 16; TEMP 36.6; O2SAT 97
[2021-01-22] MEDS: Potassium Chloride Oral Tablet 10 MEQ PO ×3 (05:22→21:12)
[2021-01-22 07:47] VITALS: BP 125/63; PULSE 63; RESP 18; TEMP 37.3; O2SAT 95
[2021-01-22] MEDS: Meclizine HCl 25 MG Tablet PO (07:50)
[2021-01-22] MEDS: Verapamil SR 240 MG Tablet 120 MG PO (07:51)
[2021-01-22] MEDS: Aspirin E.C. 81 MG Tablet PO (07:51)
[2021-01-22] MEDS: Iron Polysaccharide Complex 150 MG CAPSULE PO (07:51)
[2021-01-22] MEDS: Propranolol 40 MG Tablet PO ×2 (07:52→21:12)
[2021-01-22] MEDS: Pantoprazole Sodium 40 MG Tablet PO (07:52)
[2021-01-22] MEDS: VILAZODONE HYDROCHLORIDE 10 MG TABLET 20 MG PO ×2 (07:53→21:12)
[2021-01-22] MEDS: Glucerna Shake 120 ML LIQUID PO ×3 (07:57→16:12)
[2021-01-22] MEDS: ALPRAZolam 0.5 MG Tablet 1 MG PO (08:03)
[2021-01-22] MEDS: Ibuprofen 400 MG Tablet PO (10:50)
--- NOTE | 2021-01-22 12:53 | PCM.HOSP.N ---
Hospitalist Note Follow up: debility Subjective: Feeling well. No new complaints. Objective: 95% on RA, 37.3, 125/63, 63, 18. NAD. Afebrile. HRRR S1S2. LCTAB. Abd soft NT ND nml BS. Ext w/o edema. Skin brusing. A/P 1. Debility Complicated by the patient is prior stroke. Patient is falling at home. PT OT evaluate and treat has expressed already that he is unable to adequately care for her at home, at least at this time Anticipate patient require senior living facility upon discharge 2. Anxiety Patient already on Viibryd. Patient also on alprazolam 1 mg 4 times daily. With the patient's falls and underlying dementia, I recommend this being weaned off. They recommended taper, which I am initiating now, would be 1mg 3 times daily as needed for 1 week, then twice daily as needed for a week, then once daily as needed for a week, then every other day for 3 doses as needed then stop. 3. History of stroke Complicates care and recovery Continue with aspirin 4. Disposition Anticipate that the patient will qualify for SNF Case management to further assist on the floor. Patient may need an APS referral Visit Charges Inpatient E&M: 49710 Subs Hosp L2
[2021-01-22 13:55] VITALS: BP 89/41; PULSE 59; RESP 18; TEMP 37.1; O2SAT 92
--- NOTE | 2021-01-22 14:07 | NURSING ---
PT BP 89/41 - DR ASHBY MADE AWARE - NEW ORDER OBTAINED
[2021-01-22 16:14] VITALS: BP 109/56
[2021-01-22 21:00] VITALS: BP 138/48; PULSE 69; RESP 18; TEMP 36.6; O2SAT 99
[2021-01-23 02:01] VITALS: BP 114/57; PULSE 87; RESP 16; TEMP 37.3; O2SAT 96
[2021-01-23] MEDS: Potassium Chloride Oral Tablet 10 MEQ PO ×3 (05:16→21:11)
[2021-01-23] MEDS: Meclizine HCl 25 MG Tablet PO (05:18)
[2021-01-23] MEDS: ALPRAZolam 0.5 MG Tablet 1 MG PO ×2 (08:17→16:26)
[2021-01-23] MEDS: Iron Polysaccharide Complex 150 MG CAPSULE PO (08:18)
[2021-01-23] MEDS: Pantoprazole Sodium 40 MG Tablet PO (08:18)
[2021-01-23] MEDS: Aspirin E.C. 81 MG Tablet PO (08:18)
[2021-01-23] MEDS: Verapamil SR 240 MG Tablet 120 MG PO (08:19)
[2021-01-23] MEDS: VILAZODONE HYDROCHLORIDE 10 MG TABLET 20 MG PO ×2 (08:19→21:11)
[2021-01-23 08:20] VITALS: BP 126/68; PULSE 77; RESP 16; TEMP 37.4; O2SAT 96
[2021-01-23] MEDS: Glucerna Shake 120 ML LIQUID PO ×3 (08:22→16:26)
[2021-01-23] MEDS: Furosemide 40 MG Tablet PO (08:22)
[2021-01-23] MEDS: Propranolol 40 MG Tablet PO ×4 (08:22→21:11)
--- NOTE | 2021-01-23 12:28 | PN.HOSP_ITS ---
Subjective Subjective no new complaints. Objective Data Objective Data Vital Signs: Vital Signs Temp Pulse Resp BP Pulse Ox 37.4 C H 77 16 126/68 H 96 01/23/21 08:20 01/23/21 08:20 01/23/21 08:20 01/23/21 08:20 01/23/21 08:20 Oxygen Delivery Method Room Air Weight: 53.7 kg Body Mass Index (BMI) 21.6 Intake & Output: Intake and Output for Last 24 Hours 01/21/21 01/22/21 01/23/21 23:59 23:59 23:59 Intake Total 480 / 530 550 / 550 Output Total 300 / 700 1200 / 1200 550 / 550 Balance -300 / -700 -720 / -670 0 / 0 Lab / Micro Data Result Diagrams: 01/19/21 14:20 01/20/21 06:25 Physical Exam Const alert HEENT Head and Scalp: normocephalic Neck no lymphadenopathy Resp normal respiratory effort, no retractions, no use of accessory muscles and clear to auscultation bilaterally Cardio regular rate, regular rhythm, S1 normal heart sound and S2 normal heart sound GI normal to inspection, nondistended, normoactive bowel sounds, soft to palpation, non-tender and non-distended Assessment & Plan Assessment/Plan (1) Debility: PLAN: 1. Debility * Complicated by the patient is prior stroke. Patient is falling at home. * PT OT evaluate and treat * has expressed already that he is unable to adequately care for her at home, at least at this time * Anticipate patient require assisted facility upon discharge 2. Anxiety * Patient already on Viibryd. Patient also on alprazolam 1 mg 4 times daily. With the patient's falls and underlying dementia, I recommend this being weaned off. They recommended taper, which I am initiating now, would be 1mg 3 times daily as needed for 1 week, then twice daily as needed for a week, then once daily as needed for a week, then every other day for 3 doses as needed then stop. 3. History of stroke * Complicates care and recovery * Continue with aspirin 4. Disposition * Anticipate that the patient will qualify for SNF * Case management to further assist on the floor. * Patient may need an APS referral Charges/Coding Visit Charges Inpatient E&M: 31455 Subs Hosp L2
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
--- NOTE | 2021-01-23 14:34 | CHAPLAIN ---
Type of Pastoral Visit _x__ Initial Visit ___ Follow-up Visit ___ On-call Visit ___ General Patient Visit ___ Spiritual Assessment ___ Family Conference ___ Bereavement ___ Rapid Response ___ Code Blue ___ Other (describe below) Pastoral Care Referral From _x__ Patient ___ Family ___ Nurse ___ Physician ___ Produce Field Merchandiser ___ Assistant Store Manager Operations ___ Other (describe below) Sacrament/Intervention _x__ Active listening ___ Anointing ___ Yarsanism ___ Bereavement ___ Communion ___ Deirdre exploration ___ ___ Life review _x__ Prayer ___ Reconciliation ___ Sacrament of Sick _x__ Supportive presence ___ Wedding ___ Other (describe below) Pastoral Comments patient states that she has had a bad stroke but is unable to say when it occurred; pt says she does not remember how she came to the hospital and says my has not been here at all, where is he?; pt says they want to put me in a correction and I will not go; spoke with pt about her safety and that is goal for everyone; affirmed pt and her deirdre; prayed with pt for direction and healing
[2021-01-23 14:35] VITALS: BP 107/62; PULSE 73; RESP 18; TEMP 36.9; O2SAT 94
--- NOTE | 2021-01-23 15:50 | CASEMGMT ---
Social Work Note TIKI collaborated with physician. Physician agreeable to Jillian-Psych consult. TIKI placed a call to [facility] and spoke with Cheryl in crisis and provided [facility]ian-Psych referral. TIKI faxed clinicals to Cheryl at [facility]. running rigger and RN aware consult was placed. TIKI received update from [facility] TIKI that Cheryl called and stated she was on her way to [facility] to see pt. running rigger updated. Plan: Await outcome of Jillian-Psych consult. Valarie Oh DIRECT SUPPORT PROFESSIONAL, CORE SHAPER TOP
--- NOTE | 2021-01-23 16:29 | NURSING ---
patient discussing discharge plans. states son was just here, but no documented visitors noted today. pt states she lives here--reoriented to hospital. states she knows she is in the hospital. patient states son is going to take her home. when asked where son lives, pt states [place]. will consult with
--- NOTE | 2021-01-23 16:55 | CASEMGMT ---
Social Work Note SW placed a call to Reij at [facility] and left message that pt is still at [facility], disposition is pending. SW to update Reji once disposition is known. Valarie Oh RECEIVABLE MANAGER, CILNICAL SCIENTIST
[2021-01-23 18:35] VITALS: BP 118/69; PULSE 71; RESP 16; TEMP 36.2; O2SAT 95
[2021-01-23 21:06] VITALS: BP 141/73; PULSE 74; RESP 18; TEMP 37.1; O2SAT 96
--- NOTE | 2021-01-23 23:25 | NURSING ---
barbara from [facility] called and stated that pt doesn't meet criteria
[2021-01-24 03:26] VITALS: BP 136/59; PULSE 73; RESP 16; TEMP 36.9; O2SAT 92
[2021-01-24] MEDS: Potassium Chloride Oral Tablet 10 MEQ PO ×2 (05:58→14:00)
[2021-01-24 08:03] VITALS: BP 124/58; PULSE 59; RESP 18; TEMP 37; O2SAT 95
[2021-01-24] MEDS: Aspirin E.C. 81 MG Tablet PO (08:05)
[2021-01-24] MEDS: Ibuprofen 400 MG Tablet PO (08:05)
[2021-01-24] MEDS: Verapamil SR 240 MG Tablet 120 MG PO (08:06)
[2021-01-24] MEDS: Propranolol 40 MG Tablet PO ×3 (08:06→18:42)
[2021-01-24] MEDS: Iron Polysaccharide Complex 150 MG CAPSULE PO (08:06)
[2021-01-24] MEDS: VILAZODONE HYDROCHLORIDE 10 MG TABLET 20 MG PO (08:07)
[2021-01-24] MEDS: Pantoprazole Sodium 40 MG Tablet PO (08:07)
[2021-01-24] MEDS: Glucerna Shake 120 ML LIQUID PO ×3 (08:12→18:42)
--- NOTE | 2021-01-24 10:03 | PN.HOSP_ITS ---
Subjective Subjective Complains of neck pain. Tolerating PO. Objective Data Objective Data Vital Signs: Vital Signs Temp Pulse Resp BP Pulse Ox 37.0 C 59 L 18 124/58 H 95 01/24/21 08:03 01/24/21 08:03 01/24/21 08:03 01/24/21 08:03 01/24/21 08:03 Oxygen Delivery Method Room Air Weight: 53.7 kg Body Mass Index (BMI) 21.6 Intake & Output: Intake and Output for Last 24 Hours 01/22/21 01/23/21 01/24/21 23:59 23:59 23:59 Intake Total 480 / 530 950 / 950 200 / 200 Output Total 1200 / 1200 850 / 850 Balance -720 / -670 100 / 100 200 / 200 Lab / Micro Data Result Diagrams: 01/19/21 14:20 01/20/21 06:25 Physical Exam Const alert Exam Limitations: no limitations Resp normal respiratory effort, no use of accessory muscles and clear to auscultation bilaterally Cardio regular rate, regular rhythm, S1 normal heart sound and S2 normal heart sound GI normal to inspection, nondistended, normoactive bowel sounds, non-tender and non-distended Psych affect normal Assessment & Plan Assessment/Plan (1) Debility: PLAN: 1. Debility * Complicated by the patient is prior stroke. Patient is falling at home. * PT OT evaluate and treat * has expressed already that he is unable to adequately care for her at home, at least at this time * Anticipate patient require half-way facility upon discharge 2. Anxiety * Patient already on Viibryd. Patient also on alprazolam 1 mg 4 times daily. With the patient's falls and underlying dementia, I recommend this being weaned off. They recommended taper, which I am initiating now, would be 1mg 3 times daily as needed for 1 week, then twice daily as needed for a week, then once daily as needed for a week, then every other day for 3 doses as needed then stop. 3. History of stroke * Complicates care and recovery * Continue with aspirin 4. Disposition * Anticipate that the patient will qualify for SNF * Case management to further assist on the floor. * Patient may need an APS referral Charges/Coding Visit Charges Inpatient E&M: 21750 Subs Hosp L2
--- NOTE | 2021-01-24 11:06 | CASEMGMT ---
Social Work Note SW received call from Morenita at [facility] stating she is aware a referral was made to [facility] for [facility] but will need to call [facility] regarding referral. TIKI placed a call to Reji with APS and updated her. SW to continue to follow. SW waiting for update from [facility] regarding [facility]-Psych placement. SW is still waiting for a call back from pt's regarding discharge plans. Valarie Oh SCIENTIFIC AIDE, VIOLENT CRIMES DETECTIVE
[2021-01-24] MEDS: Acetaminophen 325 MG Tablet 650 MG PO (11:50)
[2021-01-24] MEDS: ALPRAZolam 0.5 MG Tablet 1 MG PO (11:52)
--- NOTE | 2021-01-24 12:00 | CASEMGMT ---
Social Work Note TIKI placed a call to pt's Bradley (Sudhakar) and introduced self and role at [facility]. TIKI spoke with Bradley about discharge planning and SNF. TIKI explained Medicare rules and guidelines to Bradley. TIKI verbally provided Bradley a list of SNF providers including quality and resource use data and consistent with the patient's preferred geographic region, medical needs, and insurance network. Bradley states preferred provider is [facility]. SW to make referral to [facility] as a back up plan in the event that pt is not able to be accepted at [facility]. Valarie Oh INSTRUMENT DESIGNER, BOW STRING MAKER
--- NOTE | 2021-01-24 12:32 | CASEMGMT ---
SOCIAL WORK Assisting TIKI Valarie. Spoke with Argenis from Crisis, [facility] still reviewing referral at this time. [facility] will be sending referral to [facility]. Per Valarie, in agreement with referral to [facility]. Referral faxed at this time. Valentin Mcgraw, MACHINE OPERATOR HAY STACKER, LIST OF FIRST JOB IDEAS
[2021-01-24 14:00] VITALS: BP 126/59; PULSE 73; RESP 18; TEMP 36.9; O2SAT 98
--- NOTE | 2021-01-24 14:16 | EKG12_ITS ---
Test Reason : Blood Pressure : / mmHG Vent. Rate : 063 BPM Atrial Rate : 063 BPM P-R Int : 152 ms QRS Dur : 086 ms QT Int : 410 ms P-R-T Axes : 040 055 041 degrees QTc Int : 419 ms Normal sinus rhythm Normal ECG When compared with ECG of 06-JAN-2021 12:50, No significant change was found Confirmed by JUANITO CHISHOLM, GLADYS ([id number]), multimedia editor TOMER VILLAR ([id number]) on 01/30/2021 7:48:20 AM Referred By: [facility] Confirmed By:GLADYS SOLOMON MD
--- NOTE | 2021-01-24 15:34 | CASEMGMT ---
SOCIAL WORK Call from [place] with Crisis inquiring if [facility] has been in contact with [facility]. Call to Valarie [facility]. [facility] contacted [facility] and requested COVID-19 test and EKG. Awaiting results at this time. Call to [facility] to update. Valentin Mcgraw, CRAB PICKER, DIRECTOR INTEGRATED
--- NOTE | 2021-01-24 15:56 | CASEMGMT ---
Pt screened with [facility] Palliative Care Screening Tool due to strata 4, pt did not meet criteria.
--- NOTE | 2021-01-24 17:02 | PCM.TXEXTCAR ---
Diet 01/20/21 12:06 Diet: Cardiac - Heart Healthy Food consistency:: Regular Liquid Consistency:: Regular/Thin Dietary Modifications:: Consistent Carbohydrate Is pt able to select menu?: Yes Routine Orders/Code Status Code Status: Full Code Wound(s) post scalp: Wound Type: scab lt arm: Wound Type: Skin Tear lt hand: Wound Type: Skin Tear lt pointer finger: Wound Type: Skin Tear right arm: Wound Type: Skin Tear Therapies Weight Bearing: Full weight bearing Physical Therapy: Eval and Treat Occupational Therapy: Eval and Treat Problem/Diagnosis (1) Debility: Status: Acute Allergies/Procedures Done in Hospital Allergies codeine Allergy (Verified 01/19/21 12:31) swelling Iodinated Contrast Media Allergy (Verified 01/19/21 12:31) swelling iodine Allergy (Verified 01/19/21 12:31) swelling meperidine [From Demerol] Allergy (Verified 01/19/21 12:31) heart stop morphine Allergy (Verified 01/19/21 12:31) swelling propoxyphene [From Darvocet-N] Allergy (Verified 01/19/21 12:31) heart stop Type of Care/Length of Stay Estimated LOS: Convalescent Care Less Than 30 days Type of Care Needed: Skilled Rehab Potential: Fair Prognosis: Fair Additional Orders/Day of Discharge Day of Discharge: 01/24/21 Dietary and Speech Recommendations Dietitian Recommendations/Changes: Continue Cardiac/Consistent Carbohydrate diet and 120ml glucerna shake TID w/ medpass. Discharge Plan Admission Admit Date/Time: 01/20/21 13:36 Attending Provider: Marques Valentin Primary Care Provider: Partha Batres Chi Discharge Orders/Prescriptions Prescriptions: New acetaminophen [Tylenol] 325 mg Tablet 650 mg PO Q4H PRN PRN (Reason: Fever, pain 1-10/10) Qty: 0 RF: 0 alprazolam 0.5 mg Tablet 1 mg PO Q8 PRN (Reason: Anxiety) Qty: 0 RF: 0 ibuprofen 400 mg Tablet 400 mg PO Q6H PRN PRN (Reason: Pain Score 1-10) Qty: 0 RF: 0 Glucerna 1.2 Yuriy 0.06-1.2 gram-kcal/mL Liquid 120 ml PO TIDCM Qty: 0 RF: 0 Continued Viibryd 20 mg tablet 20 mg PO BID RF: 0 propranolol 40 mg tablet 40 mg PO 4X/DAY RF: 0 verapamil 120 mg tablet extended release 120 mg PO DAILY RF: 0 trimipramine 25 mg capsule 25 mg PO 4X/DAY RF: 0 omeprazole 40 MG capsule,delayed release(DR/EC) 40 mg PO DAILY RF: 0 polysaccharide iron complex 150 MG capsule 150 mg PO DAILYCM Qty: 30 RF: 0 baclofen 10 MG tablet 10 mg PO TID PRN (Reason: Muscle Spasm) RF: 0 furosemide 40 mg tablet 40 mg PO DAILY RF: 0 potassium chloride 10 mEq capsule, extended release 10 meq PO TID RF: 0 aspirin 81 mg tablet,delayed release (DR/EC) 81 mg PO DAILY RF: 0 meclizine 25 mg tablet 25 mg PO TID PRN (Reason: Dizziness) RF: 0 Discontinued alprazolam 1 MG tablet 1 mg PO Q6H RF: 0 Referrals / Follow Up: Partha Batres Chi, MD [Primary Care Provider] - Within 2 Weeks Disposition Disposition (needs filled in before D/C Order can be placed): Psychiatric Hospital or Unit
--- NOTE | 2021-01-24 17:06 | PCM.DC.SUM ---
Providers Date of Admission: 01/20/21 Primary Care Physician: Dr. Partha Batres MD Reason For Visit: DEBILITY Diagnosis Discharge Diagnosis (1) Debility: Status: Acute Code(s): R53.81 - Other malaise Medications at Discharge Home Medications propranolol 40 mg tablet 40 mg PO 4X/DAY 08/25/19 trimipramine 25 mg capsule 25 mg PO 4X/DAY 08/25/19 verapamil 120 mg tablet,extended release 120 mg PO DAILY 08/25/19 vilazodone 20 mg tablet 20 mg PO BID 08/25/19 omeprazole 40 mg PO DAILY 08/11/20 baclofen 10 mg PO TID PRN tab 08/28/20 polysaccharide iron complex 150 mg PO DAILYCM #30 cap 08/28/20 aspirin 81 mg PO DAILY 01/19/21 furosemide 40 mg PO DAILY 01/19/21 meclizine 25 mg PO TID PRN 01/19/21 potassium chloride 10 meq PO TID 01/19/21 acetaminophen [Tylenol] 650 mg PO Q4H PRN PRN #0 tab 01/24/21 alprazolam 1 mg PO Q8 PRN #0 tab 01/24/21 ibuprofen 400 mg PO Q6H PRN PRN #0 tab 01/24/21 nut.tx.gluc intol,lf,soy-fiber [Glucerna 1.2 Yuriy] 120 ml PO TIDCM #0 ml 01/24/21 Hospital Course Operations None Procedures None Summary of Care Provided Minutes Spent on Discharge: 33 Hospital Course: Patient brought in for weakness. No etiology was clearly identified but patient demonstrating a lack of self-awareness and inability to adequately care for self. Patient was monitored here over the holiday weekend and was evaluated and deemed appropriate for geriatric psychiatric unit. Patient be discharged to the [facility] in stable condition. Patient is on alprazolam 4 times daily. I be transitioned over to 3 times daily and recommend further tapering to off. Patient has had a stroke and has barely had a decline since then. Patient is not suicidal nor homicidal but is a risk of further self-harm due to lack of self-awareness in regards to her predicament. Patient will benefit from further psychiatric assistance in regards to facilitating understanding her condition if possible. Physical Exam Const alert General Appearance: cooperative Weight / BMI Weight Weight: 53.7 kg Body Mass Index (BMI) 21.6 ABG / Lab / Microbiology Data Result Diagrams: 01/19/21 14:20 01/20/21 06:25 Microbiology: Microbiology 01/24/21 15:00 SARS-CoV-2 Antigen (Rapid) - Final Mucosa - Nasopharyngeal Microbiology 01/24/21 15:00 Mucosa - Nasopharyngeal SARS-CoV-2 Antigen (Rapid) - Final D/C Instructions Discharge Diet: No restrictions Meaningful Use Info Meaningful Use Diagnoses (Choose all that apply): None applicable Discharge Plan Admission Admit Date/Time: 01/20/21 13:36 Attending Provider: Marques Valentin Primary Care Provider: Partha Batres Chi Discharge Orders/Prescriptions Prescriptions: New acetaminophen [Tylenol] 325 mg Tablet 650 mg PO Q4H PRN PRN (Reason: Fever, pain 1-1010) Qty: 0 RF: 0 alprazolam 0.5 mg Tablet 1 mg PO Q8 PRN (Reason: Anxiety) Qty: 0 RF: 0 ibuprofen 400 mg Tablet 400 mg PO Q6H PRN PRN (Reason: Pain Score 1-10) Qty: 0 RF: 0 Glucerna 1.2 Yuriy 0.06-1.2 gram-kcal/mL Liquid 120 ml PO TIDCM Qty: 0 RF: 0 Continued Viibryd 20 mg tablet 20 mg PO BID RF: 0 propranolol 40 mg tablet 40 mg PO 4X/DAY RF: 0 verapamil 120 mg tablet extended release 120 mg PO DAILY RF: 0 trimipramine 25 mg capsule 25 mg PO 4X/DAY RF: 0 omeprazole 40 MG capsule,delayed release(DR/EC) 40 mg PO DAILY RF: 0 polysaccharide iron complex 150 MG capsule 150 mg PO DAILYCM Qty: 30 RF: 0 baclofen 10 MG tablet 10 mg PO TID PRN (Reason: Muscle Spasm) RF: 0 furosemide 40 mg tablet 40 mg PO DAILY RF: 0 potassium chloride 10 mEq capsule, extended release 10 meq PO TID RF: 0 aspirin 81 mg tablet,delayed release (DR/EC) 81 mg PO DAILY RF: 0 meclizine 25 mg tablet 25 mg PO TID PRN (Reason: Dizziness) RF: 0 Discontinued alprazolam 1 MG tablet 1 mg PO Q6H RF: 0 Referrals / Follow Up: Partha Batres Chi, MD [Primary Care Provider] - Within 2 Weeks Disposition Disposition (needs filled in before D/C Order can be placed): Psychiatric Hospital or Unit Charges/Coding Visit Charges Inpatient E&M: 86991 Disch Hosp
--- NOTE | 2021-01-24 17:50 | NURSING ---
pt going to [facility] in [facility]. Dr. Carter . nurse to nurse report [phone] option #2... [address] [id number]
--- NOTE | 2021-01-24 17:57 | CASEMGMT ---
Social Work Note SW received message from Vanessa at [facility] stating they are able to accept pt, asked for Medication list and states they will need to find a reason to skill pt as they cannot skill pt just under debility. TIKI spoke with Vanessa about how [facility] is working on possible [facility]-Psych placement for pt and will update Vanessa once this worker gets update from [facility]. Vanessa states understanding. TIKI did fax updated Medication List and PT/OT notes to [facility]. SW received update that [facility] as accepted pt and pt can discharge there today, they will need a pink slip. TIKI placed a call to [facility] and spoke with Cheryl in crisis and updated her that [facility] as accepted pt, asked for pink slip. Cheryl states physician at [facility] will need to complete pink slip. respiratory therapy manager updated who updated physician. TIKI received another message from Vanessa at [facility] stating they just don't know what to skill pt on, asked for follow up tomorrow. SW to follow up with [facility] tomorrow. TIKI did place a call to Reji at [facility] and left message updating her. Plan: [facility] Valarie Oh FIBREGLASS LAMINATOR, HOIST OPERATOR
--- NOTE | 2021-01-24 19:09 | NURSING ---
report called to Alyssa @ [facility]
--- NOTE | 2021-01-25 10:38 | CASEMGMT ---
Social Work Note Pt was discharged to [facility]. SW placed a call to [facility] and updated staff to disregard referral. Valarie Oh FOREIGN POLICY OFFICER, PROFESSIONAL SKATEBOARDER
--- NOTE | 2021-01-26 15:52 | CASEMGMT ---
Social Work Note TIKI received call from pt's Brother Mynor Gillespie requesting update on where pt is currently located at. TIKI reviewed demographics sheet, Pt's brother is not listed on pt's contact/demographics sheet. TIKI informed Mynor that this worker cannot disclose information to him regarding pt's plans as he is not listed on demographics sheet and this worker is not able to ask pt for permission to give out information. Mynor states pt's son Isiah should be listed on demographics and he's going to call in and get information as he is the one that really wants to know the information. TIKI received call from pt's son Isiah Laboy requesting update on pt's whereabouts. TIKI provided update to Isiah that pt was discharged to [facility] facility and provided Isiah with address and phone number of facility. Isiah states understanding, thanked this worker for the update. Valarie Oh HEAT TREATING OPERATOR, BAND TEACHER
== END 2021-01-24 19:40 | DRG 947 ==
LOC: ED 12:54 → PCU 15:27 → MS3 16:21
PROVIDERS: Emergency Provider Emergency Medicine; PCP Family Medicine Geriatric Medicine
DX: R53.81 Other malaise (principal); I63.9 Cerebral infarction, unspecified; I69.354 Hemiplegia and hemiparesis following cerebral infarction affecting left non-dominant side; R29.6 Repeated falls; F17.210 Nicotine dependence, cigarettes, uncomplicated; F41.9 Anxiety disorder, unspecified; F03.90 Unspecified dementia, unspecified severity, without behavioral disturbance, psychotic disturbance, mood disturbance, and anxiety; Z79.899 Other long term (current) drug therapy
CPT/HCPCS: 36415; 71046; 72074; 80048; 80053; 81001; 85027; 87426; 93005; 97110; 97162; 97165; 97530; 97535; 97802; 97803; 99285; 99406; A4216; J2405

== ENCOUNTER → 2021-03-08 13:54 | Outpatient (CLI) | payer MEDICARE, OTHER, SELFPAY ==
[2021-03-08 17:19] LABS: Absolute Lymphocyte Count 2.86 X10^3/uL (0.83-4.51); Absolute Neutrophil Count 6.5 X10^3/uL (2.0-7.7); Basophil# 0.11 X10^3/uL; Eosinophil# 0.14 X10^3/uL; Eosinophils% 1.2 % (0-5); Hematocrit 35.7 % (37-47); Hemoglobin 10.7 g/dL (12.0-15.0); Lymphocyte # 2.86 X10^3/ul (0.83-4.51); Mean Corpuscular Hgb 27.4 pg (27.0-32.0); Mean Corpuscular Volume 91.5 fL (81-99); Mean Platelet Vol. 10.5 fl (6.2-12.0); Monocyte# 1.35 X10^3/uL; Monocyte% 11.8 % (0-10); NRBC Flagged by Analyzer 0 % (0-5); Neutrophil # 6.54 X10^3/uL (2.7-7.7); Neutrophil % 57.2 % (47-70); POSITIVE MORPHOLOGY YES; Platelet Count 392 K/mm3 (150-450); RBC Distribution Width CV 21.6 % (11.6-14.6); RBC Distribution Width SD 71.7 fl (35.1-43.9); White Blood Count 11.4 K/mm3 (4.4-11.0)
[2021-03-08 17:23] LABS: Differential Indicated SCAN CRITERIA MET
[2021-03-08 17:40] LABS: Vitamin D,25 Hydroxy 37.5 ng/mL
[2021-03-08 17:46] LABS: Anisocytosis 1+; Macrocytosis 1+; Platelet Estimate ADEQUATE (ADEQ); Red Cell Morphology N CHROM NORMAL (NORM C&C)
[2021-03-08 17:54] LABS: AST(SGOT) 16 U/L (15-37); Alanine Aminotransfer ALT/SGPT 24 U/L (13-56); Albumin, Serum 3.5 g/dL (3.2-5.0); Alkaline Phosphatase 110 U/L (45-117); Anion Gap 7 (5-15); BUN 18 mg/dL (7-18); Calcium,Total 8.9 mg/dL (8.5-10.1); Chloride 106 mmol/L (98-107); Creatinine, Serum 0.78 mg/dL (0.55-1.02); EST Glomerular Filtration Rate 76 mL/min (>60); Est Glom Filt Rate - Afr Amer 92 mL/min (>60); Globulin 3.5 g/dL (2.2-4.2); Glucose 119 mg/dL (74-106); Potassium 4.3 mmol/L (3.5-5.1); Sodium Level 139 mmol/L (136-145); Thyroid Stim Hormone (TSH) 1.13 uIU/mL (0.358-3.74)
== END ==
PROVIDERS: PCP Family Medicine Geriatric Medicine; Visit Provider Family Medicine Geriatric Medicine
DX: E11.9 Type 2 diabetes mellitus without complications (principal); E55.9 Vitamin D deficiency, unspecified; R53.83 Other fatigue
CPT/HCPCS: 36415; 80053; 82306; 84443; 85025

== ENCOUNTER 2021-03-09 19:15 | Emergency (ER) | payer MEDICARE, OTHER, SELFPAY ==
[2021-03-09 19:16] VITALS: BP 136/75; PULSE 68; RESP 18; TEMP 36.4; O2SAT 97; BMI 26.7
--- NOTE | 2021-03-09 20:50 | RAD_ITS ---
STUDY: X-RAY CHEST REASON FOR EXAM: Female, 76 years old. Edema TECHNIQUE: Portable, upright, AP chest radiograph COMPARISON: 01/19/2021 FINDINGS: The lungs are clear and expanded. There is no demonstrated pleural abnormality. Normal size heart. Normal mediastinum and abida. Normal visualized pulmonary arteries. Normal visualized aortic arch and descending thoracic aorta. There is demineralization of the osseous structures. Chronic left proximal humerus fracture. Multiple old left and right rib fractures. Left chest wall surgical clips redemonstrated. There is no demonstrated abnormality of the visualized soft tissue structures of the upper abdomen. RAD/Chest 1 View (Portable) IMPRESSION: No acute abnormal cardiopulmonary finding. Electronically Signed: Oswaldo Nicholson MD at 22:20 EDT Tel , Service support ,
--- NOTE | 2021-03-09 20:51 | EKG12_ITS ---
Test Reason : DYSRHYTHMIA Blood Pressure : / mmHG Vent. Rate : 067 BPM Atrial Rate : 067 BPM P-R Int : 154 ms QRS Dur : 072 ms QT Int : 422 ms P-R-T Axes : 053 061 046 degrees QTc Int : 445 ms Normal sinus rhythm Normal ECG Confirmed by PAM CHISHOLM, SADIA ([id number]), advertising editor TOMER VILLAR ([id number]) on 03/12/2021 1:38:36 PM Referred By: CARO Confirmed By:AMIRA OROZCO MD
[2021-03-09 20:58] LABS: Absolute Lymphocyte Count 2.57 X10^3/uL (0.83-4.51); Absolute Neutrophil Count 5.3 X10^3/uL (2.0-7.7); Basophil# 0.09 X10^3/uL; Basophil% 0.9 % (0-1); Eosinophil# 0.13 X10^3/uL; Eosinophils% 1.4 % (0-5); Hematocrit 37.7 % (37-47); Hemoglobin 11.3 g/dL (12.0-15.0); Lymphocyte # 2.57 X10^3/ul (0.83-4.51); Mean Corpuscular Hgb 27.6 pg (27.0-32.0); Mean Platelet Vol. 11.5 fl (6.2-12.0); Monocyte# 1.04 X10^3/uL; Monocyte% 10.9 % (0-10); NRBC Flagged by Analyzer 0 % (0-5); Neutrophil # 5.26 X10^3/uL (2.7-7.7); Neutrophil % 55.2 % (47-70); POSITIVE MORPHOLOGY YES; Platelet Count 417 K/mm3 (150-450); RBC Distribution Width CV 21.4 % (11.6-14.6); White Blood Count 9.5 K/mm3 (4.4-11.0)
[2021-03-09 21:15] VITALS: BP 140/72; PULSE 78; RESP 16; O2SAT 98
[2021-03-09 21:17] LABS: ALB/GLOB Ratio 0.9 RATIO (0.9-2.4); AST(SGOT) 29 U/L (15-37); Alanine Aminotransfer ALT/SGPT 21 U/L (13-56); Albumin, Serum 3.5 g/dL (3.2-5.0); Alkaline Phosphatase 103 U/L (45-117); Anion Gap 5 (5-15); BUN 18 mg/dL (7-18); BUN/Creat Ratio 17.3 RATIO (10-20); Calcium,Total 8.8 mg/dL (8.5-10.1); Chloride 107 mmol/L (98-107); Creatinine, Serum 1.04 mg/dL (0.55-1.02); EST Glomerular Filtration Rate 55 mL/min (>60); Est Glom Filt Rate - Afr Amer 66 mL/min (>60); Estimated Creatinine Clearance 42.84 ml/min; Globulin 3.8 g/dL (2.2-4.2); Glucose 124 mg/dL (74-106); Potassium 4.1 mmol/L (3.5-5.1); Protein, Total 7.3 g/dL (6.4-8.2); Sodium Level 140 mmol/L (136-145); Troponin-I HS 7 pg/mL (3.0-54.0)
[2021-03-09 21:29] LABS: Differential Indicated SCAN CRITERIA MET
[2021-03-09 22:23] LABS: Anisocytosis 1+; Differential Comment SCANNED
[2021-03-09 22:39] LABS: BNP,B-Type NATRIURETIC PEPTIDE 54.8 pg/mL (0-100)
--- NOTE | 2021-03-09 23:33 | EDS_ITS ---
HPI History of Present Illness Chief Complaint: Edema Informant: patient Onset/Context/Timing Onset: Days Context: Gradual Onset Timing: Continuous Quality: Edema Location: Bilateral lower extremities and left upper extremity Worsened by: Nothing Relieved by: Nothing Narrative Narrative: Patient presents with peripheral edema that has been getting worse over the past few days. Patient has had increased swelling in both lower extremities and in her left upper extremity. Patient states it is gradually gotten worse. Patient was recently started on a diuretic. Patient states she took 2 doses today. Patient states she has not had any improvement with this. Patient states nothing makes it worse and nothing makes it better. Patient denies any shortness of breath. Patient does admit to a cough. Patient denies any chest pain. Patient admits to nausea but denies any vomiting. [facility] Medical History Cancer CVA (cerebral vascular accident) Diabetes Kidney stones Mitral valve prolapse Osteoporosis Smoker TIA (transient ischemic attack) Home Medications propranolol 40 mg tablet 40 mg PO BID 08/25/19 [History Last Taken Unknown] vilazodone 20 mg tablet 40 mg PO DAILY 08/25/19 [History Last Taken Unknown] omeprazole 40 mg PO DAILY 08/11/20 [History Last Taken Unknown] baclofen 10 mg PO TID PRN tab 08/28/20 [Rx Last Taken Unknown] aspirin 81 mg PO DAILY 01/19/21 [History Last Taken Unknown] potassium chloride 10 meq PO TID 01/19/21 [History Last Taken Unknown] acetaminophen [Tylenol] 650 mg PO Q4H PRN PRN #0 tab 01/24/21 [Rx Last Taken Unknown] alprazolam 1 mg PO Q8 PRN #0 tab 01/24/21 [Rx Last Taken Unknown] atorvastatin 20 mg PO QHS 03/09/21 [History Last Taken Unknown] furosemide [Lasix] 40 mg PO DAILY 03/09/21 [History Last Taken Unknown] memantine 5 mg PO DAILY 03/09/21 [History Last Taken Unknown] propranolol 40 mg PO BID 03/09/21 [History Last Taken Unknown] quetiapine [Seroquel] 100 mg PO QHS 03/09/21 [History Last Taken Unknown] sucralfate 1 g PO BID 03/09/21 [History Last Taken Unknown] trazodone 50 mg PO QHS 03/09/21 [History Last Taken Unknown] Allergy/AdvReac Type Severity Reaction Status Date / Time codeine Allergy swelling Verified 03/09/21 19:18 Iodinated Contrast Media Allergy swelling Verified 03/09/21 19:18 iodine Allergy swelling Verified 03/09/21 19:18 meperidine [From Demerol] Allergy heart stop Verified 03/09/21 19:18 morphine Allergy swelling Verified 03/09/21 19:18 propoxyphene Allergy heart stop Verified 03/09/21 19:18 [From Darvocet-N] Surgical History H/O eye surgery H/O mastectomy Social History Smoking Status: Current every day smoker tobacco type: cigarettes alcohol intake: never ROS ROS ED Constitutional Constitutional ED: Reports chills and subjective; Denies fever(s) Eyes Eyes: Denies blurry vision or change in vision ENT ENT ED: Denies rhinorrhea or sore throat Cardiovascular Cardiovascular: Denies chest pain or palpitations Respiratory/Chest Respiratory/Chest: Reports cough and sputum; Denies dyspnea Gastrointestinal Gastrointestinal: Reports nausea; Denies vomiting Genitourinary Genitourinary ED: Denies dysuria or hematuria Musculoskeletal Musculoskeletal: Denies back pain or neck pain Integumentary Denies abscess or rash Neurologic Neurologic: Denies headache(s) or weakness Allergic/Immunologic Allergic/Immunologic ED: Denies mouth swelling or urticaria EXAM Physical Exam Const Vital Signs: 03/09/21 19:16 03/09/21 19:40 03/09/21 21:15 Temperature 97.5 F L Temperature Source Temporal Pulse Rate 68 78 Respiratory Rate 18 16 Respiratory Effort Normal Non-Labored Respiratory Pattern Normal Blood Pressure 136/75 H 140/72 H Blood Pressure Mean 95 94 Pulse Ox 97 98 Oxygen Delivery Method Room Air Room Air 03/09/21 23:43 Temperature Temperature Source Pulse Rate 75 Respiratory Rate 15 Respiratory Effort Respiratory Pattern Blood Pressure Blood Pressure Mean Pulse Ox 99 Oxygen Delivery Method Positive well nourished and well developed General Appearance ED: well developed HEENT Reports moist mucous membranes Neck supple and no JVD Resp normal respiratory effort and clear to auscultation bilaterally Cardio regular rate, regular rhythm and no murmurs GI normal to inspection, nondistended, normoactive bowel sounds and non-tender Palpation: soft Extremity Extremity Narrative: There is 2+ edema of the lower extremities bilaterally. There is also 2+ edema of the left upper extremity. There is no edema of the right upper extremity. There is some mild tenderness to palpation over the lower extremities bilaterally. There is good range of motion. General Extremety ED: Yes edema and tenderness General Extremity: edema Neuro oriented x3, CN's II-XII intact bilaterally and no sensory deficits noted Sensorium / Orientation: alert Motor Exam: strength 5/5 throughout Psych mental status grossly normal Skin no rashes or lesions noted MDM MDM MDM Narrative Medical decision making narrative: EKG was obtained. On my interpretation, it showed a normal sinus rhythm with a rate of 67. TX interval, QRS interval, and QTc intervals were all normal. [place] was normal. There are no acute ST or T wave changes. Portable 1 view chest x-ray was obtained. On my interpretation, lung mohan are clear. There is normal cardiac silhouette. Bony thorax is normal. There is no acute process noted. Radiologist also interpreted the x- ray and agrees. CBC was essentially within normal limits. Comprehensive metabolic profile was normal. High-sensitivity troponin was normal. BNP was normal. Patient was advised of her findings. Patient was instructed to continue her diuretic as prescribed. Patient was instructed to follow-up with her primary care physician in 3 to 5 days. Patient understood and was agreeable with the plan. All questions were answered. Lab Data Attestation: I reviewed the patient's lab results. Labs: Laboratory Results - last 24 hr 03/09/21 03/09/21 03/09/21 19:55 19:55 19:55 WBC 9.5 RBC 4.10 L Hgb 11.3 L Hct 37.7 MCV 92.0 MCH 27.6 MCHC 30.0 L RDW Std Deviation 72.0 H RDW Coeff of Tesfaye 21.4 H Plt Count 417 MPV 11.5 Immature Gran % (Auto) 4.600 H Neut % (Auto) 55.2 Lymph % (Auto) 27.0 [place] % (Auto) 10.9 H Eos % (Auto) 1.4 Baso % (Auto) 0.9 Absolute Neuts (auto) 5.3 Absolute Lymphs (auto) 2.57 Nucleated RBC % 0 Differential Comment SCANNED Anisocytosis 1+ Sodium 140 Potassium 4.1 Chloride 107 Carbon Dioxide 28.0 Anion Gap 5 BUN 18 Creatinine 1.04 H Estim Creat Clear Calc 42.84 Est GFR (MDRD) Af Amer 66 Est GFR (MDRD) Non-Af 55 L BUN/Creatinine Ratio 17.3 Glucose 124 H Calcium 8.8 Total Bilirubin 0.30 AST 29 ALT 21 Alkaline Phosphatase 103 Troponin I High Sens 7 B-Natriuretic Peptide 54.8 Total Protein 7.3 Albumin 3.5 Globulin 3.8 Albumin/Globulin Ratio 0.9 Radiography Chest X-Ray - ED: 1 View, Read by ED Physician, Read by Radiologist and Normal Diagnostic Testing: Radiology Impression Chest X-Ray 03/09/21 20:50 IMPRESSION: No acute abnormal cardiopulmonary finding. Electronically Signed: Oswaldo Nicholson MD at 22:20 EDT Tel , Service support , EKG Initial EKG: Attestation: I personally reviewed and interpreted this EKG as follows: Interpretation: Sinus Rhythm (67) and No Acute Injury Pattern Prior EKG tracings: available for review Prior: Unchanged (01/24/2021) Discharge Plan Triage Chief Complaint: Edema ED Provider: Marques Faye Dx/Rx/DC Orders Clinical Impression: Peripheral edema Instructions: ED Peripheral Edema, Bilateral Prescriptions: No Action Viibryd 20 mg tablet 40 mg PO DAILY RF: 0 propranolol 40 mg tablet 40 mg PO BID RF: 0 omeprazole 40 MG capsule,delayed release(DR/EC) 40 mg PO DAILY RF: 0 baclofen 10 MG tablet 10 mg PO TID PRN (Reason: Muscle Spasm) RF: 0 potassium chloride 10 mEq capsule, extended release 10 meq PO TID RF: 0 aspirin 81 mg tablet,delayed release (DR/EC) 81 mg PO DAILY RF: 0 acetaminophen [Tylenol] 325 mg Tablet 650 mg PO Q4H PRN PRN (Reason: Fever, pain 1-04/29) Qty: 0 RF: 0 alprazolam 0.5 mg Tablet 1 mg PO Q8 PRN (Reason: Anxiety) Qty: 0 RF: 0 furosemide [Lasix] 40 mg Tablet 40 mg PO DAILY RF: 0 atorvastatin 20 mg Tablet 20 mg PO QHS RF: 0 trazodone 50 mg Tablet 50 mg PO QHS RF: 0 sucralfate 1 gram Tablet 1 g PO BID RF: 0 quetiapine [Seroquel] 100 mg Tablet 100 mg PO QHS RF: 0 propranolol 40 mg Tablet 40 mg PO BID RF: 0 memantine 5 mg Tablet 5 mg PO DAILY RF: 0 Primary Care Provider: Partha Batres Chi Referrals: Partha Batres Chi, MD [Primary Care Provider] - 3-5 Days Disposition Disposition: Home, Self Care Discharge Date/Time: 03/09/21 23:43
[2021-03-09 23:43] VITALS: PULSE 75; RESP 15; O2SAT 99
== END 2021-03-09 23:43 | disposition home or self-care (01) ==
PROVIDERS: Emergency Provider Emergency Medicine; PCP Family Medicine Geriatric Medicine
DX: R60.0 Localized edema (principal); R05 Cough; R11.0 Nausea; E11.9 Type 2 diabetes mellitus without complications; I34.1 Nonrheumatic mitral (valve) prolapse; F17.210 Nicotine dependence, cigarettes, uncomplicated; Z86.73 Personal history of transient ischemic attack (TIA), and cerebral infarction without residual deficits; Z90.10 Acquired absence of unspecified breast and nipple
CPT/HCPCS: 36415; 71045; 80053; 83880; 84484; 85025; 93005; 99283; A4216

== ENCOUNTER → 2021-03-22 17:13 | Outpatient (CLI) | payer MEDICARE, OTHER, SELFPAY ==
[2021-03-22 18:23] LABS: Anion Gap 6 (5-15); BUN 14 mg/dL (7-18); BUN/Creat Ratio 18.4 RATIO (10-20); Calcium,Total 9.2 mg/dL (8.5-10.1); Chloride 100 mmol/L (98-107); Creatinine, Serum 0.76 mg/dL (0.55-1.02); EST Glomerular Filtration Rate 79 mL/min (>60); Est Glom Filt Rate - Afr Amer 95 mL/min (>60); Glucose 89 mg/dL (74-106); Potassium 2.8 mmol/L (3.5-5.1); Sodium Level 139 mmol/L (136-145)
== END ==
PROVIDERS: PCP Family Medicine Geriatric Medicine; Visit Provider Family Medicine Geriatric Medicine
DX: E87.6 Hypokalemia (principal); R33.9 Retention of urine, unspecified
CPT/HCPCS: 36415; 80048; 87086; 87088

== ENCOUNTER → 2021-03-29 16:31 | Outpatient (CLI) | payer MEDICARE, OTHER, SELFPAY ==
[2021-03-29 17:26] LABS: Anion Gap 7 (5-15); BUN 15 mg/dL (7-18); BUN/Creat Ratio 17.6 RATIO (10-20); Calcium,Total 9.1 mg/dL (8.5-10.1); Chloride 102 mmol/L (98-107); Creatinine, Serum 0.85 mg/dL (0.55-1.02); EST Glomerular Filtration Rate 69 mL/min (>60); Est Glom Filt Rate - Afr Amer 84 mL/min (>60); Glucose 93 mg/dL (74-106); Potassium 2.9 mmol/L (3.5-5.1); Sodium Level 139 mmol/L (136-145)
== END ==
PROVIDERS: PCP Family Medicine Geriatric Medicine; Referring Provider Family Medicine Geriatric Medicine; Visit Provider Family Medicine Geriatric Medicine
DX: E87.6 Hypokalemia (principal)
CPT/HCPCS: 36415; 80048

== ENCOUNTER → 2022-03-12 | Outpatient (CLI) | payer MEDICARE, OTHER, SELFPAY ==
[2022-03-12 16:59] LABS: Absolute Lymphocyte Count 2.98 X10^3/uL (0.83-4.51); Absolute Neutrophil Count 5.3 X10^3/uL (2.0-7.7); Basophil# 0.06 X10^3/uL; Basophil% 0.6 % (0-1); Eosinophil# 0.08 X10^3/uL; Eosinophils% 0.8 % (0-5); Hematocrit 34.5 % (37-47); Lymphocyte # 2.98 X10^3/ul (0.83-4.51); Lymphocyte % 31.3 % (19-41); Mean Corp Hgb Conc 31.9 g/dL (32-36); Mean Corpuscular Volume 87.8 fL (81-99); Mean Platelet Vol. 11.1 fl (6.2-12.0); Monocyte# 0.96 X10^3/uL; Monocyte% 10.1 % (0-10); NRBC Flagged by Analyzer 0 % (0-5); Neutrophil # 5.27 X10^3/uL (2.7-7.7); Neutrophil % 55.5 % (47-70); Platelet Count 297 K/mm3 (150-450); RBC Distribution Width CV 14.6 % (11.6-14.6); RBC Distribution Width SD 47.6 fl (35.1-43.9); Red Blood Count 3.93 M/mm3 (4.2-5.4); White Blood Count 9.5 K/mm3 (4.4-11.0)
[2022-03-12 17:18] LABS: Vitamin D,25 Hydroxy 27.5 ng/mL
[2022-03-12 17:29] LABS: AST(SGOT) 18 U/L (15-37); Alanine Aminotransfer ALT/SGPT 22 U/L (13-56); Albumin, Serum 3.4 g/dL (3.2-5.0); Alkaline Phosphatase 106 U/L (45-117); Anion Gap 6 (5-15); BUN 16 mg/dL (7-18); BUN/Creat Ratio 14.2 RATIO (10-20); Calcium,Total 8.8 mg/dL (8.5-10.1); Chloride 101 mmol/L (98-107); Creatinine, Serum 1.13 mg/dL (0.55-1.02); EST Glomerular Filtration Rate 50 mL/min (>60); Est Glom Filt Rate - Afr Amer 60 mL/min (>60); Globulin 3.5 g/dL (2.2-4.2); Glucose 114 mg/dL (74-106); Potassium 3.2 mmol/L (3.5-5.1); Protein, Total 6.9 g/dL (6.4-8.2); Sodium Level 137 mmol/L (136-145); Thyroid Stim Hormone (TSH) 0.88 uIU/mL (0.358-3.74)
== END | disposition home or self-care (01) ==
LOC: POLAB3 14:44
PROVIDERS: PCP Family Medicine Geriatric Medicine; Referring Provider Family Medicine Geriatric Medicine; Visit Provider Family Medicine Geriatric Medicine
DX: E11.9 Type 2 diabetes mellitus without complications (principal); E55.9 Vitamin D deficiency, unspecified; R53.83 Other fatigue
CPT/HCPCS: 36415; 80053; 82306; 84443; 85025

== ENCOUNTER 2022-05-21 16:14 | Emergency (ER) | payer MEDICARE, OTHER, SELFPAY ==
[2022-05-21 16:15] VITALS: BP 158/74; PULSE 74; RESP 16; O2SAT 97
[2022-05-21 16:16] VITALS: BP 158/71; PULSE 76; RESP 16; TEMP 36.6; O2SAT 97; BMI 26.4
--- NOTE | 2022-05-21 16:53 | CT_ITS ---
STUDY: CT ABDOMEN AND PELVIS WITHOUT CONTRAST REASON FOR EXAM: Female, 77 years old. Pain RADIATION DOSAGE (If Supplied By Facility): CTDIvol = ( 6.98 ) mGy, DLP = ( 289.41 ) mGycm TECHNIQUE: Transaxial images were obtained from the dome of the diaphragm to the symphysis pubis without oral contrast, and without intravenous contrast. Sagittal and coronal images were reconstructed. Individualized dose optimization techniques were used for this CT. COMPARISON: 11/28/2015 CT abdomen and pelvis. FINDINGS: The visualized lung bases are unremarkable. Calcific coronary artery disease. Normal liver. Normal gallbladder and extrahepatic biliary system. Normal spleen. Normal pancreas. 2.4 cm left renal nodule appears hypodense, well-circumscribed and unchanged. Right adrenal normal. Punctate bilateral nonobstructing nephroliths. These appear increased. Stable 9 mm exophytic isodense lesion left renal cortex. Normal visualized stomach. Normal small intestine. Normal colon. Appendix not identified. Calcified plaque along the aorta and its branches. 2.6 cm infrarenal abdominal aortic aneurysm. Normal inferior vena cava. Normal retroperitoneum. Normal urinary bladder. Uterus normal. Fat-containing umbilical hernia. 50% anterior subluxation and bilateral pars defects L5-S1. CT/Abdomen/Pelvis without Cont IMPRESSION: 2.6 cm infrarenal abdominal aortic aneurysm demonstrating interval progression. Recommend follow-up CTA of the abdomen and pelvis. Stable left adrenal adenoma. Stable indeterminate left renal cortical lesion. Bilateral nonobstructing nephroliths demonstrate interval progression. Electronically Signed: Doug Leger MD at 18:01 EDT ,
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
[2022-05-21 17:16] LABS: Absolute Lymphocyte Count 2.67 X10^3/uL (0.83-4.51); Absolute Neutrophil Count 5.7 X10^3/uL (2.0-7.7); Basophil# 0.06 X10^3/uL; Basophil% 0.6 % (0-1); Eosinophil# 0.05 X10^3/uL; Eosinophils% 0.5 % (0-5); Hematocrit 34.7 % (37-47); Hemoglobin 11.1 g/dL (12.0-15.0); Lymphocyte # 2.67 X10^3/ul (0.83-4.51); Lymphocyte % 28.5 % (19-41); Mean Corpuscular Hgb 27.7 pg (27.0-32.0); Mean Corpuscular Volume 86.5 fL (81-99); Mean Platelet Vol. 9.8 fl (6.2-12.0); Monocyte# 0.73 X10^3/uL; Monocyte% 7.8 % (0-10); NRBC Flagged by Analyzer 0 % (0-5); Neutrophil # 5.73 X10^3/uL (2.7-7.7); Neutrophil % 61.1 % (47-70); Platelet Count 351 K/mm3 (150-450); RBC Distribution Width CV 15.7 % (11.6-14.6); RBC Distribution Width SD 49.8 fl (35.1-43.9); Red Blood Count 4.01 M/mm3 (4.2-5.4); White Blood Count 9.4 K/mm3 (4.4-11.0)
[2022-05-21] MEDS: Ondansetron 4 MG/2 ML Vial IV (17:18)
--- NOTE | 2022-05-21 17:30 | RAD_ITS ---
STUDY: X-RAY - LEFT SHOULDER REASON FOR EXAM: Female, 77 years old. pain TECHNIQUE: 2 view(s) of the shoulder. COMPARISON: 10/07/2020 FINDINGS: Ununited humeral neck fracture with inferior rotation of the humeral head unchanged. Normal acromioclavicular joint. Normal acromion. Multiple new rib fractures posterior laterally, age indeterminate. Normal humeral head and visualized proximal humerus. The soft tissue structures are unremarkable. Surgical clips left lateral chest wall. Normal visualized pulmonary apex. RAD/Shoulder min 2 Views IMPRESSION: Ununited humeral neck fracture unchanged. New posterior rib fractures, age indeterminate. Electronically Signed: Doug Leger MD at 17:50 EDT ,
[2022-05-21 17:40] LABS: ALB/GLOB Ratio 1.3 RATIO (0.9-2.4); AST(SGOT) 16 U/L (15-37); Alanine Aminotransfer ALT/SGPT 15 U/L (13-56); Albumin, Serum 3.9 g/dL (3.2-5.0); Alkaline Phosphatase 93 U/L (45-117); Anion Gap 6 (5-15); BUN 8 mg/dL (7-18); BUN/Creat Ratio 10.5 RATIO (10-20); Calcium,Total 9.2 mg/dL (8.5-10.1); Chloride 108 mmol/L (98-107); Creatinine, Serum 0.76 mg/dL (0.55-1.02); EST Glomerular Filtration Rate 78 mL/min (>60); Est Glom Filt Rate - Afr Amer 95 mL/min (>60); Estimated Creatinine Clearance 44.88 ml/min; Glucose 104 mg/dL (74-106); Lipase 183 U/L (73-393); Potassium 3.7 mmol/L (3.5-5.1); Protein, Total 6.9 g/dL (6.4-8.2); Sodium Level 141 mmol/L (136-145)
[2022-05-21 17:52] LABS: Bacteria 0 SEEN /hpf (None Seen); Mucous, Urine 0 SEEN /hpf (<or=2+); Red Blood Cells-Urine 0 SEEN /hpf (0-5); Squamous Epithelial Cells - UA 0 SEEN /hpf (5-10)
[2022-05-21 18:07] LABS: Color, Urine Straw (Yellow); Glucose, Dipstick Normal (Normal); Ketone-Dipstick Negative (Negative); Leukocyte Esterase-Dipstick 25 /ul (Negative); Nitrite-Dipstick Negative (Negative); Occult Blood-Urine Negative /ul (Negative); Protein-Dipstick Negative (Negative); Urine Bilirubin Dipstick Negative (Negative); Urine Clarity Clear (Clear); Urine Urobilinogen Normal (Normal)
[2022-05-21 18:26] VITALS: BP 134/57; PULSE 79; RESP 18; O2SAT 97
[2022-05-21 18:26] LABS: White Blood Cells 0-5 SEEN /hpf (0-5)
== END 2022-05-21 19:59 | disposition home or self-care (01) ==
PROVIDERS: Emergency Provider Emergency Medicine; PCP Family Medicine Geriatric Medicine; Visit Provider Emergency Medicine
DX: R10.9 Unspecified abdominal pain (principal); E11.9 Type 2 diabetes mellitus without complications; D64.9 Anemia, unspecified; M25.512 Pain in left shoulder; Z86.73 Personal history of transient ischemic attack (TIA), and cerebral infarction without residual deficits; Z87.442 Personal history of urinary calculi; F17.210 Nicotine dependence, cigarettes, uncomplicated
CPT/HCPCS: 73030; 74176; 80053; 81001; 83690; 85025; 93005; 96374; 99284; A4216; J2405

== ENCOUNTER → 2022-07-08 | Outpatient (CLI) | payer MEDICARE, OTHER, SELFPAY ==
--- NOTE | 2022-07-08 16:19 | RAD_ITS ---
INDICATION: LOW BACK PAIN EXAMINATION/TECHNIQUE: X-RAY - XR Spine Thoracic 2 Views COMPARISON: 01/19/2021 FINDINGS: VERTEBRAE: Preserved vertebral body height. No fracture. There is mild diffuse osteopenia, diffuse thoracic spondylosis with marginal osteophytes however no fracture or bony process. Mildly hyperkyphotic curvature is noted without change. No significant facet arthropathy. DISCS: Disc spaces are maintained. INCLUDED CHEST/ABDOMEN: No acute abnormalities. Diffuse aortic calcifications are present. RAD/Thoracic Spine 2 Views IMPRESSION: 1. Stable exam. Mildly hyper kyphotic curvature of thoracic spine. Diffuse osteopenia noted. 2. No evidence however of fracture malalignment or acute bony or paraspinous soft tissue abnormality. Electronically Signed: Deshawn Jones MD at 18:39 EST ,
--- NOTE | 2022-07-08 16:19 | RAD_ITS ---
STUDY: X-RAY - CERVICAL SPINE REASON FOR EXAM: Female, 77 years old. Neck pain. TECHNIQUE: 4 view(s) of the cervical spine were obtained. COMPARISON: December 11, 2020. FINDINGS: Osteopenia. Normal anterior atlantoaxial articulation. Normal odontoid process. Slight increased lordosis unchanged. Diffuse uncovertebral and facet sclerosis. 3 mm of anterolisthesis of C5 on C6, unchanged. Diffuse intervertebral disc space narrowing most marked at C4-5, C5-6, C6-7 and C7-T1. Bilateral carotid calcification, left greater than right. RAD/Cerv Spine 2 or 3 Views IMPRESSION: Osteopenia with relatively stable diffuse cervical spondylosis. Carotid calcification. No acute abnormality, evidence of erosive changes or fusion. Electronically Signed: Miguelito Gonzalez, at 14:18 EST ,
--- NOTE | 2022-07-08 16:19 | RAD_ITS ---
INDICATION: LOW BACK PAIN EXAMINATION/TECHNIQUE: X-RAY - XR Spine Lumbar Min 4 Views COMPARISON: 07/29/2018 FINDINGS: VERTEBRAE: Vertebral body height and alignment are unchanged. Diffuse osteopenia is present. There is a grade 2 anterolisthesis of L5 on S1. No significant interval change. Facet hypertrophic changes are present. Pars defects at L5 are present. No acute fractures. No destructive bony process. Visualized sacrum and sacroiliac joints have normal appearance. DISCS: Significant disc space narrowing at L5-S1. Remaining disc spaces are maintained. INCLUDED ABDOMEN: Included bowel gas pattern is non-obstructive. Diffuse aortic calcifications are present. No evidence of aneurysmal dilatation. RAD/L/S Spine Min 4 Views IMPRESSION: 1. Stable exam. 2. Grade 2 anterolisthesis of L5 on S1 contributed by pars defects. Facet hypertrophic changes are present. 3. No fractures or acute bony or paraspinous soft tissue abnormality. Electronically Signed: Deshawn Jones MD at 18:46 EST ,
--- NOTE | 2022-07-08 16:25 | RAD_ITS ---
INDICATION: CHEST PAIN EXAMINATION/TECHNIQUE: X-RAY - XR Chest 2 Views COMPARISON: 03/09/2021 FINDINGS: LIFE-SUPPORT AND LINES: 1. None HEART AND VESSELS: The cardiac silhouette, pulmonary vasculature have normal appearance. No evidence of congestive failure. LUNGS AND PLEURAL SPACES: Lungs are clear. No focal infiltrate, consolidation or effusions. No evidence of pneumothorax. No pulmonary mass is noted. There is a area calcification likely associated with pleural LEFT lung base without change.. MEDIASTINUM AND HILAR REGIONS: No masses adenopathy noted. No areas of calcification. Visualized upper airway is normal in position. BONY ELEMENTS: Healed bilateral rib fractures. Deformity of the proximal LEFT humerus consistent with fracture with nonunion. Findings are stable. Other: Postoperative changes in the LEFT axilla. RAD/Chest PA and Lateral IMPRESSION: 1. No evidence of acute cardiopulmonary process 2. Healed bilateral rib fractures. Chronic fracture/nonunion of proximal LEFT humerus. Electronically Signed: Deshawn Jones MD at 18:34 EST ,
== END | disposition home or self-care (01) ==
LOC: RAD 16:18
PROVIDERS: PCP Family Medicine Geriatric Medicine; Referring Provider Family Medicine Geriatric Medicine; Visit Provider Family Medicine Geriatric Medicine
DX: M54.50 Low back pain, unspecified (principal); R07.9 Chest pain, unspecified
CPT/HCPCS: 71046; 72040; 72070; 72110

== ENCOUNTER → 2022-09-10 | Outpatient (CLI) | payer MEDICARE, OTHER, SELFPAY ==
[2022-09-10 17:41] LABS: Absolute Lymphocyte Count 2.84 X10^3/uL (0.83-4.51); Absolute Neutrophil Count 4.8 X10^3/uL (2.0-7.7); Basophil# 0.09 X10^3/uL; Eosinophil# 0.07 X10^3/uL; Eosinophils% 0.8 % (0-5); Hematocrit 37.9 % (37-47); Hemoglobin 11.6 g/dL (12.0-15.0); Lymphocyte # 2.84 X10^3/ul (0.83-4.51); Lymphocyte % 32.6 % (19-41); Mean Corp Hgb Conc 30.6 g/dL (32-36); Mean Corpuscular Hgb 26.2 pg (27.0-32.0); Mean Corpuscular Volume 85.7 fL (81-99); Mean Platelet Vol. 10.7 fl (6.2-12.0); Monocyte# 0.73 X10^3/uL; Monocyte% 8.4 % (0-10); NRBC Flagged by Analyzer 0 % (0-5); Neutrophil # 4.82 X10^3/uL (2.7-7.7); Neutrophil % 55.3 % (47-70); Platelet Count 339 K/mm3 (150-450); RBC Distribution Width CV 15.9 % (11.6-14.6); RBC Distribution Width SD 49.8 fl (35.1-43.9); Red Blood Count 4.42 M/mm3 (4.2-5.4); White Blood Count 8.7 K/mm3 (4.4-11.0)
[2022-09-10 18:07] LABS: AST(SGOT) 22 U/L (15-37); Alanine Aminotransfer ALT/SGPT 19 U/L (13-56); Albumin, Serum 3.7 g/dL (3.2-5.0); Alkaline Phosphatase 90 U/L (45-117); Anion Gap 8 (5-15); BUN 10 mg/dL (7-18); BUN/Creat Ratio 10.2 RATIO (10-20); Calcium,Total 9.6 mg/dL (8.5-10.1); Chloride 106 mmol/L (98-107); Creatinine, Serum 0.98 mg/dL (0.55-1.02); EST Glomerular Filtration Rate 59 mL/min (>60); Est Glom Filt Rate - Afr Amer 71 mL/min (>60); Globulin 3.7 g/dL (2.2-4.2); Glucose 110 mg/dL (74-106); Potassium 4.1 mmol/L (3.5-5.1); Protein, Total 7.4 g/dL (6.4-8.2); Sodium Level 141 mmol/L (136-145); Thyroid Stim Hormone (TSH) 0.91 uIU/mL (0.358-3.74)
[2022-09-10 18:08] LABS: Vitamin D,25 Hydroxy 28.3 ng/mL
== END | disposition home or self-care (01) ==
LOC: POLAB3 13:30
PROVIDERS: PCP Family Medicine Geriatric Medicine; Visit Provider Family Medicine Geriatric Medicine
DX: E11.65 Type 2 diabetes mellitus with hyperglycemia (principal); I10 Essential (primary) hypertension; E55.9 Vitamin D deficiency, unspecified
CPT/HCPCS: 36415; 80053; 82306; 84443; 85025

== ENCOUNTER → 2022-09-24 | Outpatient (CLI) | payer MEDICARE, OTHER, SELFPAY ==
--- NOTE | 2022-09-24 15:25 | RAD_ITS ---
STUDY: X-RAY - THORACIC SPINE REASON FOR EXAM: Female, 77 years old. Back pain. TECHNIQUE: 2 view(s) of the thoracic spine were obtained. COMPARISON: June 2022. FINDINGS: Osteopenia. Increased kyphosis. There is no substantial scoliosis. Diffuse intervertebral disc space narrowing most marked in the mid thoracic spine with osteophyte formation. No compression deformities. Cardiomegaly with aortic tortuosity and calcification. Marked vascular calcification. RAD/Thoracic Spine 2 Views IMPRESSION: Osteopenia with thoracic spondylosis with increased kyphosis. No acute finding. Electronically Signed: Miguelito Gonzalez, at 15:18 EST ,
== END | disposition home or self-care (01) ==
LOC: RAD 15:13
PROVIDERS: PCP Family Medicine Geriatric Medicine; Visit Provider Anesthesiology Pain Medicine
DX: M51.34 Other intervertebral disc degeneration, thoracic region (principal)
CPT/HCPCS: 72070

== ENCOUNTER → 2022-12-12 | Outpatient (CLI) | payer MEDICARE, OTHER, SELFPAY ==
--- NOTE | 2022-12-12 09:56 | ECHOD_ITS ---
Reason For Study: CHEST PAIN Procedure This was a 2D Doppler, Color Flow transthoracic echocardiogram. Exam performed in department. Left Ventricle Normal LV size. Left ventricular systolic function is normal. The estimated ejection fraction is 65 %. Stage 1 diastolic dysfunction. No regional wall motion abnormalities noted. Right Ventricle Normal RV size. Normal systolic function. Atria Normal left atrium. Normal right atrium. Mitral Valve Normal mitral valve. Mild (1+) eccentric mitral valve insufficiency. Tricuspid Valve Normal tricuspid valve. Mild tricuspid valve insufficiency. Pulmonary artery systolic pressure is 45 mmHg. Aortic Valve Trisinus/trileaflet aortic valve. Mild diffuse aortic valve thickening. Pulmonic Valve Normal pulmonic valve. Great Vessels Normal aortic root. The pulmonary artery is normal size. Normal inferior vena cava. Pericardium/Pleural No pericardial effusion. MMode/2D Measurements & Calculations LVIDd: 4.3 cm IVSd: 0.64 cm Ao root diam: 2.3 cm LVIDs: 2.7 cm LVPWd: 0.95 cm RVDd: 3.0 cm FS: 35.9 % LAV(MOD-bp): 31.3 ml LVAd ap4: 21.2 cm2 SV(MOD-sp4): 38.1 ml LAV(MOD-bp) Indexed: 20.8 ml/m2 LVLd ap4: 6.4 cm LAV(MOD-sp2): 28.3 ml EDV(MOD-sp4): 57.2 ml LAV(MOD-sp4): 30.8 ml EDV(sp4-el): 59.5 ml LVAs ap4: 10.8 cm2 LVLs ap4: 5.3 cm ESV(MOD-sp4): 19.1 ml ESV(sp4-el): 18.7 ml EF(MOD-sp4): 66.6 % EF(sp4-el): 68.5 % SV(sp4-el): 40.8 ml LA A4 area: 12.7 cm2 LA dimension(2D): 2.8 cm RA A4 area: 11.1 cm2 Time Measurements MV dec time: 0.18 sec Doppler Measurements & Calculations MV E max francis: 72.9 cm/sec Lat Peak E' Francis: 8.9 cm/sec Med Peak E' Francis: 7.7 cm/sec MV A max francis: 73.9 cm/sec E/E' lat: 8.2 E/E' med: 9.5 MV E/A: 0.99 Ao V2 max: 165.7 cm/sec LV V1 max: 117.3 cm/sec PA V2 max: 102.7 cm/sec Ao max P.0 mmHg LV V1 max P.5 mmHg TR max francis: 322.3 cm/sec TR max P.6 mmHg ECHO/Echo Complete Interpretation Summary Normal LV size. Left ventricular systolic function is normal. The estimated ejection fraction is 65 %. Stage 1 diastolic dysfunction. Pulmonary artery systolic pressure is 45 mmHg. Ordering Physician: Rajiv Li Referring Physician: CHICA BARAJAS Performed By: Nanda Fernandez, LEMUEL
== END | disposition home or self-care (01) ==
LOC: CVS 09:55
PROVIDERS: PCP Family Medicine Geriatric Medicine; Referring Provider Internal Medicine Cardiovascular Disease; Visit Provider Internal Medicine Cardiovascular Disease
DX: R07.9 Chest pain, unspecified (principal)
CPT/HCPCS: 93306

== ENCOUNTER → 2023-01-08 | Outpatient (CLI) | payer MEDICARE, OTHER, SELFPAY ==
--- NOTE | 2023-01-08 16:08 | CT_ITS ---
STUDY: CT Abdomen And Pelvis W/O Contrast Injection 01/08/2023 6:42 PM REASON FOR EXAM: Female, 77 years old. Abdominal pain ABD PAIN Individualized dose optimization techniques were used for this CT. COMPARISON: 05.21.22. TECHNIQUE: CT Abdomen And Pelvis W/O Contrast Injection Oral Gastrografin and amp; FINDINGS: There are atherosclerotic calcifications of visualized coronary arteries. The visualized portions of the heart are within normal limits. Normal liver. Normal gallbladder and extrahepatic biliary system. Normal spleen. Normal pancreas. There is a small, circumscribed, 19mm , -13 attenuation left adrenal mass, consistent with an adrenal adenoma. Normal right adrenal gland. Non obstructive 2 mm right renal parenchymal stones. Non obstructive 2 mm left renal parenchymal stones. There is a 9mm hypodensities in the superor left kidney. These are consistent for cysts. No follow up required. Normal visualized stomach. Normal small intestine. Stool throughout the colon. There is non-visualization of the appendix. There are calcifications of the abdominal aorta. This is consistent for atherosclerotic disease. There is 24mm abdominal aortic aneurysm. Vascular workup can be obtained based on clinical correlation. Normal inferior vena cava. Subcentimeter mesenteric lymph nodes. Normal urinary bladder. There is atrophy of the uterus. Gluteal injection granulomas. There is an umbilical hernia containing fat. There is bilateral neural foraminal stenosis at L5-S1. There are bilateral pars articularis defects at L5-S1. There is a Grade 2 anterolisthesis of L5 on S1 measuring 16mm. CT/Abdomen/Pel W ORAL Cont Only IMPRESSION: (NOT LISTED IN ORDER OF SIGNIFICANCE) There are bilateral renal calculi. There is no evidence for an obstruction. There is no hydronephrosis. 24mm abdominal aortic aneurysm Stable left adrenal adenoma. There is a Grade 2 anterolisthesis of L5 on S1 measuring 16mm. Other findings as above. Electronically Signed: Kyle Abreu MD at 18:49 EDT ,
[2023-01-08 16:56] LABS: Absolute Neutrophil Count 5.5 X10^3/uL (2.0-7.7); Basophil# 0.06 X10^3/uL; Basophil% 0.7 % (0-1); Eosinophil# 0.04 X10^3/uL; Eosinophils% 0.5 % (0-5); Hematocrit 36.9 % (37-47); Hemoglobin 10.9 g/dL (12.0-15.0); Lymphocyte % 25.5 % (19-41); Mean Corp Hgb Conc 29.5 g/dL (32-36); Mean Corpuscular Hgb 24.4 pg (27.0-32.0); Mean Corpuscular Volume 82.6 fL (81-99); Mean Platelet Vol. 10.3 fl (6.2-12.0); Monocyte# 0.74 X10^3/uL; Monocyte% 8.6 % (0-10); NRBC Flagged by Analyzer 0 % (0-5); Neutrophil # 5.49 X10^3/uL (2.7-7.7); Neutrophil % 63.4 % (47-70); Platelet Count 349 K/mm3 (150-450); RBC Distribution Width CV 16.7 % (11.6-14.6); RBC Distribution Width SD 49.6 fl (35.1-43.9); Red Blood Count 4.47 M/mm3 (4.2-5.4); White Blood Count 8.6 K/mm3 (4.4-11.0)
[2023-01-08 17:12] LABS: ALB/GLOB Ratio 1.1 RATIO (0.9-2.4); AST(SGOT) 15 U/L (15-37); Alanine Aminotransfer ALT/SGPT 19 U/L (13-56); Albumin, Serum 3.9 g/dL (3.2-5.0); Alkaline Phosphatase 90 U/L (45-117); Anion Gap 7 (5-15); BUN 15 mg/dL (7-18); BUN/Creat Ratio 16.8 RATIO (10-20); Calcium,Total 9.6 mg/dL (8.5-10.1); Chloride 107 mmol/L (98-107); Creatinine, Serum 0.89 mg/dL (0.55-1.02); EST Glomerular Filtration Rate 65 mL/min (>60); Est Glom Filt Rate - Afr Amer 79 mL/min (>60); Globulin 3.4 g/dL (2.2-4.2); Glucose 93 mg/dL (74-106); Potassium 3.8 mmol/L (3.5-5.1); Protein, Total 7.3 g/dL (6.4-8.2); Sodium Level 140 mmol/L (136-145)
== END | disposition home or self-care (01) ==
LOC: CT 16:06
PROVIDERS: PCP Family Medicine Geriatric Medicine; Referring Provider Family Medicine Geriatric Medicine; Visit Provider Family Medicine Geriatric Medicine
DX: R10.9 Unspecified abdominal pain (principal); I10 Essential (primary) hypertension
CPT/HCPCS: 36415; 74176; 80053; 85025

== ENCOUNTER 2023-02-18 17:26 | Emergency (ER) | payer MEDICARE, OTHER, SELFPAY ==
[2023-02-18 17:28] VITALS: BP 133/52; PULSE 66; RESP 14; TEMP 37.1; O2SAT 95
[2023-02-18 18:39] VITALS: BMI 26.2
[2023-02-18 18:42] VITALS: BMI 26.2
--- NOTE | 2023-02-18 18:52 | EKG12_ITS ---
Test Reason : GENERAL ILLNESS Blood Pressure : / mmHG Vent. Rate : 060 BPM Atrial Rate : 060 BPM P-R Int : 164 ms QRS Dur : 090 ms QT Int : 418 ms P-R-T Axes : 070 057 047 degrees QTc Int : 418 ms Normal sinus rhythm Normal ECG Confirmed by PAM CHISHOLM, SADIA ([id number]), society editor TOMER VILLAR ([id number]) on 02/20/2023 8:54:51 AM Referred By: MIGUEL Confirmed By:AMIRA OROZCO MD
--- NOTE | 2023-02-18 18:54 | EX.ED.DYSGE1 ---
HPI History of Present Illness Chief Complaint: Neuro S/Sx Detail of Chief Complaint: Dizzy, slurred speech, vomiting, diarrhea, cough Informant: patient, legal guardian and family Narrative Narrative: Patient presents with her son as well as her legal guardian. Legal guardian states that she met the patient about a month ago after her was placed in a half-way. She feels the patient has had a significant functional decline over the past 3 weeks. Couple weeks ago she noted decreased energy with some slurred speech and intermittent dizziness. Patient declined coming to the emergency room. She was reportedly seen about 10 days ago at [facility] with shortness of breath. She was given some steroids for COPD exacerbation, but patient states she does not feel better. She continues to have cough with foamy or yellow-colored sputum. She does not believe she had a fever. Today she was reportedly so weak she was unable to get out of bed and has had vomiting and diarrhea since last night. 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 Adult failure to thrive Anxiety Arthralgia Cancer Cervicalgia Chest pain, unspecified Chronic obstructive pulmonary disease CVA (cerebral vascular accident) Debility Depression Diabetes Dysphagia Facial droop due to stroke Falls Fecal impaction GERD (gastroesophageal reflux disease) Head injury Hemiplegia and hemiparesis following cerebral infarction affecting left non-dominant side History of asthma History of stroke in prior 3 months Hyperlipidemia Hypertension Hypokalemia Kidney stones Left hemiparesis Low back pain Mitral valve prolapse Muscle spasm Osteoporosis Panic disorder [episodic paroxysmal anxiety] Peripheral edema Rhinitis Smoker TIA (transient ischemic attack) Tobacco abuse Home Medications baclofen 10 mg tablet 10 mg PO TID PRN Muscle Spasm 08/28/20 [Rx Last Taken Unknown] aspirin 81 mg tablet,delayed release 81 mg PO DAILY 01/19/21 [History Last Taken Unknown] atenolol 25 mg tablet 25 mg PO DAILY 10/03/22 [History Last Taken Unknown] alprazolam 1 mg tablet 1 mg PO BID 10/24/22 [History Last Taken Unknown] hydroxyzine HCl 25 mg tablet 25 mg PO TID PRN 10/24/22 [History Last Taken Unknown] pravastatin 40 mg tablet 40 mg PO QHS 10/24/22 [History Last Taken Unknown] fluorometholone 0.1 % eye drops,suspension 1 drp ophthalmic (eye) BID 11/20/22 [History Last Taken Unknown] ipratropium bromide 21 mcg (0.03 %) nasal spray 2 spray intranasal BID-TID PRN 11/20/22 [History Last Taken Unknown] omeprazole 20 mg capsule,delayed release 20 mg PO DAILY 11/20/22 [History Last Taken Unknown] Allergy/AdvReac Type Severity Reaction Status Date / Time erythromycin base Allergy Unknown unknown Verified 02/18/23 17:33 codeine Allergy swelling Verified 02/18/23 17:33 Iodinated Contrast Media Allergy swelling Verified 02/18/23 17:33 iodine Allergy swelling Verified 02/18/23 17:33 meperidine [From Demerol] Allergy heart stop Verified 02/18/23 17:33 morphine Allergy swelling Verified 02/18/23 17:33 propoxyphene Allergy heart stop Verified 02/18/23 17:33 [From Darvocet-N] tetracycline Allergy Other Verified 02/18/23 17:33 Family History Mother CVA (cerebral vascular accident) Father Hypertension Surgical History H/O eye surgery H/O mastectomy H/O submandibular gland removal Social History Smoking Status: Never smoker second hand exposure: Yes alcohol intake: never ROS ROS ED Constitutional Constitutional ED: Reports chills and sweats; Denies fever(s) Eyes Eyes: Denies change in vision or discharge from eye(s) ENT ENT ED: Denies discharge from eye(s), rhinorrhea or sore throat Cardiovascular Cardiovascular: Reports chest pain; Denies palpitations Respiratory/Chest Respiratory/Chest: Reports cough and dyspnea Gastrointestinal Gastrointestinal: Reports diarrhea, nausea and vomiting; Denies abdominal pain Genitourinary Genitourinary ED: Reports urinary frequency; Denies dysuria Musculoskeletal Musculoskeletal: Denies back pain or extremity pain Integumentary Denies Abrasions or rash Neurologic Neurologic: Reports weakness; Denies headache(s) Allergic/Immunologic Allergic/Immunologic ED: Denies lip swelling or urticaria EXAM Physical Exam Const Vital Signs: 02/18/23 17:28 08/01/23 18:42 02/18/23 21:55 Temperature 98.7 F Temperature Source Temporal Pulse Rate 66 63 Respiratory Rate 14 14 Respiratory Effort Normal Non-Labored Blood Pressure 133/52 H 136/64 H Blood Pressure Mean 79 88 Pulse Ox 95 98 Oxygen Delivery Method Room Air Room Air Positive well nourished and well developed General Appearance ED: well developed HEENT Reports normocephalic and head/scalp atraumatic Eyes PERRL and EOMs intact bilaterally Neck supple Chest Wall inspection of chest normal and palpation of chest normal Resp normal respiratory effort and clear to auscultation bilaterally Cardio regular rate and regular rhythm GI non-tender Palpation: soft Neuro oriented x3 Neuro Narrative: Chronic left-sided weakness from prior stroke. Sensorium / Orientation: alert Psych mental status grossly normal Skin no rashes or lesions noted MDM MDM MDM Narrative Medical decision making narrative: CT scan of the head obtained to evaluate for potential new stroke. Labwork obtained to evaluate for leukocytosis, anemia, and electrolyte derangement. Urinalysis obtained to evaluate for infection/hematuria. Chest x-ray obtained to evaluate for acute lung pathology, cardiac size, or mediastinal abnormality. Patient given IV fluids. History & Record Review Discussion w/independent historian: Patient, Family and Other Additional record(s) reviewed:: Prior labs Lab Data Attestation: I reviewed the patient's lab results. Labs: Laboratory Results - last 24 hr 02/18/23 02/18/23 19:05 19:09 WBC 9.7 RBC 3.99 L Hgb 9.7 L Hct 32.1 L MCV 80.5 L MCH 24.3 L MCHC 30.2 L RDW Std Deviation 52.6 H RDW Coeff of Tesfaye 18.0 H Plt Count 311 MPV 10.4 Immature Gran % (Auto) 1.100 H Neut % (Auto) 60.7 Lymph % (Auto) 29.1 Benzie % (Auto) 8.3 Eos % (Auto) 0.3 Baso % (Auto) 0.5 Absolute Neuts (auto) 5.9 Absolute Lymphs (auto) 2.82 Nucleated RBC % 0 Sodium 140 Potassium 3.6 Chloride 110 H Carbon Dioxide 25.0 Anion Gap 5 BUN 12 Creatinine 0.86 Estim Creat Clear Calc 49.30 Est GFR (MDRD) Af Amer 82 Est GFR (MDRD) Non-Af 68 BUN/Creatinine Ratio 13.9 Glucose 80 Lactic Acid 1.0 Calcium 8.8 Total Bilirubin 0.30 Direct Bilirubin 0.10 AST 12 L ALT 19 Alkaline Phosphatase 76 Troponin I High Sens 5 Total Protein 6.5 Albumin 3.4 Globulin 3.1 Urine Color Yellow Urine Clarity Clear Urine pH 6.5 Ur Specific Horton 1.015 Urine Protein Negative Urine Glucose (UA) Normal Urine Ketones Negative Urine Occult Blood Negative Urine Nitrite Negative Urine Bilirubin Negative Urine Urobilinogen Normal Ur Leukocyte Esterase Negative Urine RBC 0 SEEN Urine WBC 0 SEEN Ur Squamous Epith Cells 0-5 SEEN Urine Bacteria 0 SEEN Urine Mucus 0 SEEN Radiography Chest X-Ray - ED: 1 View, Read by ED Physician, Chronic Changes and No Infiltrates Diagnostic Testing: Clinical Impression(s) from Imaging Studies Brain CT 02/18/23 18:59 IMPRESSION: Mild atrophy and moderate white matter ischemic change. No acute bleed. If concern for acute infarct MRI recommended. Electronically Signed: Yosef Cooper MD at 20:12 EDT , Chest X-Ray 02/18/23 19:30 IMPRESSION: No acute cardiopulmonary pathology. Electronically Signed: Yosef Cooper MD at 19:52 EDT , EKG Initial EKG: Attestation: I personally reviewed and interpreted this EKG as follows: Interpretation: Sinus Rhythm (Sinus at 60 with no acute ischemia.) Treatment and Re-Evaluation :: CBC was normal white count. Hemoglobin is 9.7, only slightly down from her baseline. Chemistry studies unremarkable with normal renal function. LFTs are normal. Troponin is normal at 5. Urinalysis reveals no sign of infection or dehydration. CT scan of the head reveals chronic changes with no evidence of acute infarct. Chest x-ray per my interpretation is no focal infiltrate. Radiology interpretation is reviewed and agrees. With patient having dizziness and unable to care for herself at home or even get out of bed, I did have concern that she was going to require admission. Patient states that she wanted to try to get up to walk. She was able to get up with her walker and walk down the [place] to the bathroom and back. She states she feels better after receiving IV fluids. This time I advised her that I did not know that there would be any advantage to staying in the hospital as there would not be any further treatments. I believe she likely has a viral illness that has flared her cough and given her diarrhea. This is given her generalized weakness. We discussed using Gatorade or Pedialyte to help maintain hydration status. Patient is taken home by her legal guardian. Discharge Plan Triage Chief Complaint: Neuro S/Sx Other Complaint: Dizziness ED Provider: Kenia Hall Dx/Rx/DC Orders Clinical Impression: Diarrhea, Weakness, Viral URI Instructions: ED Viral Syndrome (Adult) Prescriptions: No Action alprazolam 1 mg tablet 1 mg PO BID Patient Comments: take 1 tablet by mouth twice a day pravastatin 40 mg tablet 40 mg PO QHS Patient Comments: take 1 tablet by mouth once daily at bedtime omeprazole 20 mg capsule,delayed release(DR/EC) 20 mg PO DAILY Patient Comments: take 1 capsule by mouth once daily ipratropium bromide 21 mcg (0.03 %) spray,non-aerosol 2 spray intranasal BID-TID PRN Patient Comments: place 1 spray into each nostril 2 to three times a day if needed for ALLERGY SYMPTOMS fluorometholone 0.1 % drops,suspension 1 drp ophthalmic (eye) BID Patient Comments: place 1 drop into both eyes twice a day atenolol 25 mg tablet 25 mg PO DAILY hydroxyzine HCl 25 mg tablet 25 mg PO TID PRN baclofen 10 MG tablet 10 mg PO TID PRN (Reason: Muscle Spasm) 0RF aspirin 81 mg tablet,delayed release (DR/EC) 81 mg PO DAILY Patient Comments: take 1 tablet by mouth once daily Primary Care Provider: Partha Batres Chi Referrals: Partha Batres Chi, MD [Primary Care Provider] - 5-7 Days Disposition Disposition: Home, Self Care Discharge Date/Time: 02/18/23 22:10
--- NOTE | 2023-02-18 18:59 | CT_ITS ---
STUDY: CT BRAIN WITHOUT CONTRAST REASON FOR EXAM: Female, 78 years old. slurred speech RADIATION DOSAGE (If Supplied By Facility): CTDIvol = ( 44.99 ) mGy, DLP = ( 779.24 ) mGycm TECHNIQUE: Transaxial CT imaging of the brain was performed without administration of intravenous contrast material. Individualized dose optimization techniques were used for this CT. COMPARISON: No relevant priors. FINDINGS: Normal soft tissue structures. Normal calvarium. Calcific plaquing of the cavernous carotids Mild atrophy and moderate periventricular white matter ischemic changes. Normal basal ganglia and thalami. Normal brainstem. Normal cerebellum. There is no intracranial hemorrhage. There are no findings of an acute ischemic infarction. Postsurgical changes of the orbits Normal visualized paranasal sinuses. CT/Brain/Head without Contrast IMPRESSION: Mild atrophy and moderate white matter ischemic change. No acute bleed. If concern for acute infarct MRI recommended. Electronically Signed: Yosef Cooper MD at 20:12 EDT ,
[2023-02-18 19:10] LABS: Bacteria 0 SEEN /hpf (None Seen); Mucous, Urine 0 SEEN /hpf (<or=2+); Red Blood Cells-Urine 0 SEEN /hpf (0-5); White Blood Cells 0 SEEN /hpf (0-5)
[2023-02-18 19:25] LABS: Absolute Lymphocyte Count 2.82 X10^3/uL (0.83-4.51); Absolute Neutrophil Count 5.9 X10^3/uL (2.0-7.7); Basophil# 0.05 X10^3/uL; Basophil% 0.5 % (0-1); Eosinophil# 0.03 X10^3/uL; Eosinophils% 0.3 % (0-5); Hematocrit 32.1 % (37-47); Hemoglobin 9.7 g/dL (12.0-15.0); Lymphocyte # 2.82 X10^3/ul (0.83-4.51); Lymphocyte % 29.1 % (19-41); Mean Corp Hgb Conc 30.2 g/dL (32-36); Mean Corpuscular Hgb 24.3 pg (27.0-32.0); Mean Corpuscular Volume 80.5 fL (81-99); Mean Platelet Vol. 10.4 fl (6.2-12.0); Monocyte% 8.3 % (0-10); NRBC Flagged by Analyzer 0 % (0-5); Neutrophil # 5.88 X10^3/uL (2.7-7.7); Neutrophil % 60.7 % (47-70); Platelet Count 311 K/mm3 (150-450); RBC Distribution Width SD 52.6 fl (35.1-43.9); Red Blood Count 3.99 M/mm3 (4.2-5.4); White Blood Count 9.7 K/mm3 (4.4-11.0)
--- NOTE | 2023-02-18 19:30 | RAD_ITS ---
STUDY: X-RAY CHEST REASON FOR EXAM: Female, 78 years old. cough TECHNIQUE: AP portable COMPARISON: July 08, 2022 FINDINGS: The lungs are clear and expanded. Tiny calcified granuloma in left lower lobe There is no demonstrated pleural abnormality. Normal size heart. Normal mediastinum and abida. Normal visualized pulmonary arteries. Mildly calcified aortic arch and descending thoracic aorta. There are surgical clips seen within the left axilla Normal visualized thoracic spine. Normal visualized clavicles, and right shoulder. Old fracture dislocation deformity of the left shoulder. Multiple old healed left rib fractures There is no demonstrated abnormality of the visualized soft tissue structures of the upper abdomen. RAD/Chest 1 View (Portable) IMPRESSION: No acute cardiopulmonary pathology. Electronically Signed: Yosef Cooper MD at 19:52 EDT ,
[2023-02-18] MEDS: 0.9% Normal Saline 1,000 ML 150 ML IV (19:55)
[2023-02-18 20:04] LABS: AST(SGOT) 12 U/L (15-37); Alanine Aminotransfer ALT/SGPT 19 U/L (13-56); Albumin, Serum 3.4 g/dL (3.2-5.0); Alkaline Phosphatase 76 U/L (45-117); Anion Gap 5 (5-15); BUN 12 mg/dL (7-18); BUN/Creat Ratio 13.9 RATIO (10-20); Calcium,Total 8.8 mg/dL (8.5-10.1); Chloride 110 mmol/L (98-107); Creatinine, Serum 0.86 mg/dL (0.55-1.02); EST Glomerular Filtration Rate 68 mL/min (>60); Est Glom Filt Rate - Afr Amer 82 mL/min (>60); Globulin 3.1 g/dL (2.2-4.2); Glucose 80 mg/dL (74-106); Potassium 3.6 mmol/L (3.5-5.1); Protein, Total 6.5 g/dL (6.4-8.2); Sodium Level 140 mmol/L (136-145); Troponin-I HS 5 pg/mL (3.0-54.0)
[2023-02-18 20:19] LABS: Color, Urine Yellow (Yellow); Glucose, Dipstick Normal (Normal); Ketone-Dipstick Negative (Negative); Leukocyte Esterase-Dipstick Negative /ul (Negative); Nitrite-Dipstick Negative (Negative); Occult Blood-Urine Negative /ul (Negative); Protein-Dipstick Negative (Negative); Specific Gravity, Urine 1.015 (1.002-1.030); Urine Bilirubin Dipstick Negative (Negative); Urine Clarity Clear (Clear); Urine Urobilinogen Normal (Normal); Urine pH 6.5 (5.0 - 8.0)
[2023-02-18 20:27] LABS: Squamous Epithelial Cells - UA 0-5 SEEN /hpf (5-10)
--- NOTE | 2023-02-18 20:52 | CM.ED ---
Social Work SW introduced self and role to patient, son and senior compliance analyst. Pt's son Isiah is her HCPOA as well as health care attorney Viky Pollard. SW requested advance directive documents, health care attorney emailed HCPOA and Living Will documents. SW printed out documents for patient's chart. Pt is here due to being very weak, unable to walk and unable to care for herself at home. Patient's son resides with her and has been assisting her. Isiah has intellectual disability and is unable to provide the level of care that patient needs. Pt's health care attorney has been seeking possible AL or SNF placement for patient and son. Senior Restaurant Manager has a tour scheduled for [facility] independent [facility] on but patient has had significant decline and is no long appropriate for independent living. Pt is refusing to go anywhere without her son. Pt reports she has always had her son and will always have him by her side. Pt's senior compliance analyst is advocating for patient and son to have appropriate care together. It is possible that health care attorney could get independent living at [facility] for son and SNF for patient. Patient is reporting she will not go to a hospital room unless her son can stay there with her. Senior Restaurant Manager asks if patient's son can sleep in the chair in her room tonight if admitted and she can continue working on placement for son. Senior Restaurant Manager reports son would not need care and she will ensure he eats and provide transportation for him. Son is physically capable of caring for himself but lacks the ability to live completely independent. Pt's spouse now resides long-term in a SNF and there is no other family to help, thus appointing health care attorney as HCPOA along with son because of his intellectual disability. Senior Restaurant Manager assisted in explaining to patient and son throughout care planning discussion. Pt resides in a home with approx. 6 steps to enter home. Pt reports using a walker until last week and has been unable to walk since then. Pt reports a shower chair and bedside commode but son has been doing his best to assist her with ADLs. Pt reports she has not been eating and the thought of food makes her sick. Pt reports she has been constipated for nearly 2 years. Pt does report staying at [facility] about 2 years ago due to a stroke. TIKI consulted with physician and nursing supervisory aide. Nursing supervisory aide reports patient's son can stay in patient's room temporarily if needed but not halfway. Senior Restaurant Manager is aware that son is not able to stay termite helper and if patient has placement, son will not be able to stay at hospital and hospital is not responsible for placing son as he is not a patient. Senior Restaurant Manager reports she is working on respite options and independent or assisted living and will continue to do so. Senior Restaurant Manager had also had assessment with [facility] recently to gain assistance. Pt is reportedly going to qualify for some meals delivered. If patient does not need placement, HHC may be appropriate. Pt would prefer to return home and is adamant she will not reside anywhere without her son. Senior Restaurant Manager does not believe it is safe for patient to live at home anymore as she has not been getting out of bed, walking, or eating. Plan: Follow patient for d/c needs SNF -vs- HHC. Rissa Akins MULTIFOCAL LENS INSPECTOR, ASSISTANT WOMEN'S SOCCER COACH
--- NOTE | 2023-02-18 21:43 | ED.RN ---
Patient ambulated to restroom with walker.
[2023-02-18 21:55] VITALS: BP 136/64; PULSE 63; RESP 14; O2SAT 98
== END 2023-02-18 22:10 | disposition home or self-care (01) ==
PROVIDERS: Emergency Provider Emergency Medicine; PCP Family Medicine Geriatric Medicine; Visit Provider Emergency Medicine
DX: R19.7 Diarrhea, unspecified (principal); E11.9 Type 2 diabetes mellitus without complications; J06.9 Acute upper respiratory infection, unspecified; I10 Essential (primary) hypertension; E78.5 Hyperlipidemia, unspecified; R53.1 Weakness; Z79.82 Long term (current) use of aspirin; F41.9 Anxiety disorder, unspecified; Z79.899 Other long term (current) drug therapy; K21.9 Gastro-esophageal reflux disease without esophagitis; Z86.73 Personal history of transient ischemic attack (TIA), and cerebral infarction without residual deficits; Z90.10 Acquired absence of unspecified breast and nipple
CPT/HCPCS: 70450; 71045; 80048; 80076; 81001; 83605; 84484; 85025; 87040; 87086; 87428; 93005; 96360; 96361; 99284; J7030; A4216

== ENCOUNTER → 2023-03-19 | Outpatient (CLI) | payer MEDICARE, OTHER, SELFPAY ==
[2023-03-19 15:47] LABS: Absolute Lymphocyte Count 1.94 X10^3/uL (0.83-4.51); Absolute Neutrophil Count 5.5 X10^3/uL (2.0-7.7); Basophil# 0.05 X10^3/uL; Basophil% 0.6 % (0-1); Eosinophil# 0.03 X10^3/uL; Eosinophils% 0.4 % (0-5); Hematocrit 32.5 % (37-47); Hemoglobin 9.8 g/dL (12.0-15.0); Lymphocyte # 1.94 X10^3/ul (0.83-4.51); Lymphocyte % 23.3 % (19-41); Mean Corp Hgb Conc 30.2 g/dL (32-36); Mean Corpuscular Hgb 23.6 pg (27.0-32.0); Mean Corpuscular Volume 78.3 fL (81-99); Mean Platelet Vol. 10.6 fl (6.2-12.0); Monocyte# 0.73 X10^3/uL; Monocyte% 8.8 % (0-10); NRBC Flagged by Analyzer 0 % (0-5); Neutrophil # 5.51 X10^3/uL (2.7-7.7); Neutrophil % 65.9 % (47-70); Platelet Count 338 K/mm3 (150-450); RBC Distribution Width CV 17.4 % (11.6-14.6); RBC Distribution Width SD 49.1 fl (35.1-43.9); Red Blood Count 4.15 M/mm3 (4.2-5.4); White Blood Count 8.3 K/mm3 (4.4-11.0)
[2023-03-19 16:00] LABS: Vitamin D,25 Hydroxy 50.8 ng/mL
[2023-03-19 16:08] LABS: ALB/GLOB Ratio 1.2 RATIO (0.9-2.4); AST(SGOT) 15 U/L (15-37); Alanine Aminotransfer ALT/SGPT 18 U/L (13-56); Albumin, Serum 3.7 g/dL (3.2-5.0); Alkaline Phosphatase 72 U/L (45-117); Anion Gap 6 (5-15); BUN 11 mg/dL (7-18); BUN/Creat Ratio 13.5 RATIO (10-20); Calcium,Total 8.8 mg/dL (8.5-10.1); Chloride 108 mmol/L (98-107); Creatinine, Serum 0.82 mg/dL (0.55-1.02); EST Glomerular Filtration Rate 72 mL/min (>60); Est Glom Filt Rate - Afr Amer 87 mL/min (>60); Globulin 3.1 g/dL (2.2-4.2); Glucose 103 mg/dL (74-106); Potassium 3.5 mmol/L (3.5-5.1); Protein, Total 6.8 g/dL (6.4-8.2); Sodium Level 138 mmol/L (136-145); Thyroid Stim Hormone (TSH) 0.41 uIU/mL (0.358-3.74)
== END | disposition home or self-care (01) ==
LOC: POLAB3 15:09
PROVIDERS: PCP Family Medicine Geriatric Medicine; Visit Provider Family Medicine Geriatric Medicine
DX: E11.65 Type 2 diabetes mellitus with hyperglycemia (principal); I10 Essential (primary) hypertension; E55.9 Vitamin D deficiency, unspecified
CPT/HCPCS: 36415; 80053; 82306; 84443; 85025

== ENCOUNTER → 2023-04-02 | Outpatient (CLI) | payer MEDICARE, OTHER, SELFPAY ==
[2023-04-02 17:24] LABS: Absolute Lymphocyte Count 2.65 X10^3/uL (0.83-4.51); Absolute Neutrophil Count 6.4 X10^3/uL (2.0-7.7); Basophil# 0.06 X10^3/uL; Basophil% 0.6 % (0-1); Eosinophil# 0.05 X10^3/uL; Eosinophils% 0.5 % (0-5); Hematocrit 31.5 % (37-47); Hemoglobin 9.5 g/dL (12.0-15.0); Lymphocyte # 2.65 X10^3/ul (0.83-4.51); Lymphocyte % 26.1 % (19-41); Mean Corp Hgb Conc 30.2 g/dL (32-36); Mean Corpuscular Hgb 23.6 pg (27.0-32.0); Mean Corpuscular Volume 78.2 fL (81-99); Mean Platelet Vol. 10.8 fl (6.2-12.0); Monocyte# 0.88 X10^3/uL; Monocyte% 8.7 % (0-10); NRBC Flagged by Analyzer 0 % (0-5); Neutrophil # 6.43 X10^3/uL (2.7-7.7); Neutrophil % 63.2 % (47-70); Platelet Count 325 K/mm3 (150-450); RBC Distribution Width CV 17.3 % (11.6-14.6); RBC Distribution Width SD 48.9 fl (35.1-43.9); RET-HE 22.6 pg (30-35); Red Blood Count 4.03 M/mm3 (4.2-5.4); Reticulocyte Count 1.38 % (0.5-1.5); White Blood Count 10.2 K/mm3 (4.4-11.0)
[2023-04-02 17:38] LABS: Vitamin B12 947 pg/mL (211-911)
[2023-04-02 17:40] LABS: Ferritin 6 ng/mL (8-252); Iron 14 ug/dL (50-170); Iron Binding Capacity,Total 581 ug/dL (250-450); PERCENT IRON SATURATION 2.4 % (15.0-55.0)
[2023-04-04 16:09] LABS: Folates, RBC Test 1282 ng/mL (>498)
== END | disposition home or self-care (01) ==
LOC: POLAB3 16:39
PROVIDERS: PCP Family Medicine Geriatric Medicine; Visit Provider Family Medicine Geriatric Medicine
DX: D64.9 Anemia, unspecified (principal)
CPT/HCPCS: 36415; 82607; 82728; 82747; 83540; 83550; 85014; 85025; 85045

== ENCOUNTER → 2023-04-03 | Outpatient (CLI) | payer MEDICARE, OTHER, SELFPAY | END | disposition home or self-care (01) | PROVIDERS: PCP Family Medicine Geriatric Medicine; Visit Provider Family Medicine Geriatric Medicine | DX: D64.9 Anemia, unspecified (principal); R19.7 Diarrhea, unspecified | CPT/HCPCS: 82274; 83630; 87177; 87209 ==

== ENCOUNTER 2023-05-01 12:58 | Emergency (ER) | payer MEDICARE, OTHER, SELFPAY ==
[2023-05-01 12:59] VITALS: PULSE 68; RESP 18; TEMP 36.6; O2SAT 98; BMI 23.8
[2023-05-01 13:32] LABS: Absolute Lymphocyte Count 1.61 X10^3/uL (0.83-4.51); Absolute Neutrophil Count 5.2 X10^3/uL (2.0-7.7); Basophil# 0.06 X10^3/uL; Basophil% 0.8 % (0-1); Eosinophil# 0.04 X10^3/uL; Eosinophils% 0.5 % (0-5); Hematocrit 37.7 % (37-47); Hemoglobin 11.2 g/dL (12.0-15.0); Lymphocyte # 1.61 X10^3/ul (0.83-4.51); Lymphocyte % 21.1 % (19-41); Mean Corp Hgb Conc 29.7 g/dL (32-36); Mean Corpuscular Hgb 24.9 pg (27.0-32.0); Mean Platelet Vol. 10.7 fl (6.2-12.0); Monocyte# 0.64 X10^3/uL; Monocyte% 8.4 % (0-10); NRBC Flagged by Analyzer 0 % (0-5); Neutrophil # 5.18 X10^3/uL (2.7-7.7); Neutrophil % 67.8 % (47-70); POSITIVE MORPHOLOGY YES; Platelet Count 266 K/mm3 (150-450); RBC Distribution Width CV 24.2 % (11.6-14.6); RBC Distribution Width SD 71.4 fl (35.1-43.9); Red Blood Count 4.49 M/mm3 (4.2-5.4); White Blood Count 7.6 K/mm3 (4.4-11.0)
[2023-05-01 13:37] LABS: Differential Indicated SCAN CRITERIA MET
[2023-05-01 13:49] LABS: Anion Gap 2 (5-15); BUN 14 mg/dL (7-18); BUN/Creat Ratio 17.6 RATIO (10-20); Calcium,Total 9.3 mg/dL (8.5-10.1); Chloride 107 mmol/L (98-107); EST Glomerular Filtration Rate 74 mL/min (>60); Est Glom Filt Rate - Afr Amer 90 mL/min (>60); Estimated Creatinine Clearance 48.07 ml/min; Glucose 125 mg/dL (74-106); Potassium 3.8 mmol/L (3.5-5.1); Sodium Level 137 mmol/L (136-145)
[2023-05-01 13:59] LABS: Bacteria 0 SEEN /hpf (None Seen); Mucous, Urine 0 SEEN /hpf (<or=2+); Red Blood Cells-Urine 0 SEEN /hpf (0-5); Squamous Epithelial Cells - UA 0 SEEN /hpf (5-10)
[2023-05-01 14:00] LABS: Color, Urine Yellow (Yellow); Glucose, Dipstick Normal (Normal); Ketone-Dipstick Negative (Negative); Leukocyte Esterase-Dipstick 25 /ul (Negative); Nitrite-Dipstick Negative (Negative); Occult Blood-Urine Negative /ul (Negative); Protein-Dipstick Negative (Negative); Urine Bilirubin Dipstick Negative (Negative); Urine Clarity Clear (Clear); Urine Urobilinogen Normal (Normal)
[2023-05-01 14:05] LABS: Anisocytosis 2+; Differential Comment SCANNED; Macrocytosis 1+; Microcytosis 1+
--- NOTE | 2023-05-01 14:09 | EX.ED.DYSGE1 ---
HPI History of Present Illness Chief Complaint: Abd Pain 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 Adult failure to thrive Anxiety Arthralgia Cancer Cervicalgia Chest pain, unspecified Chronic obstructive pulmonary disease CVA (cerebral vascular accident) Debility Depression Diabetes Dysphagia Facial droop due to stroke Falls Fecal impaction GERD (gastroesophageal reflux disease) Head injury Hemiplegia and hemiparesis following cerebral infarction affecting left non-dominant side History of asthma History of stroke in prior 3 months Hyperlipidemia Hypertension Hypokalemia Kidney stones Left hemiparesis Low back pain Mitral valve prolapse Muscle spasm Osteoporosis Panic disorder [episodic paroxysmal anxiety] Peripheral edema Rhinitis Smoker TIA (transient ischemic attack) Tobacco abuse Home Medications baclofen 10 mg tablet 10 mg PO TID PRN Muscle Spasm 08/28/20 [Rx Last Taken Unknown] aspirin 81 mg tablet,delayed release 81 mg PO DAILY 01/19/21 [History Last Taken Unknown] atenolol 25 mg tablet 25 mg PO DAILY 10/03/22 [History Last Taken Unknown] alprazolam 1 mg tablet 1 mg PO BID 10/24/22 [History Last Taken Unknown] hydroxyzine HCl 25 mg tablet 25 mg PO TID PRN 10/24/22 [History Last Taken Unknown] pravastatin 40 mg tablet 40 mg PO QHS 10/24/22 [History Last Taken Unknown] fluorometholone 0.1 % eye drops,suspension 1 drp ophthalmic (eye) BID 11/20/22 [History Last Taken Unknown] ipratropium bromide 21 mcg (0.03 %) nasal spray 2 spray intranasal BID-TID PRN 11/20/22 [History Last Taken Unknown] omeprazole 20 mg capsule,delayed release 20 mg PO DAILY 11/20/22 [History Last Taken Unknown] ondansetron 4 mg disintegrating tablet 4 mg PO Q8H PRN nausea and vomiting 3 days #9 tabs 05/01/23 [Rx Last Taken Unknown] Allergy/AdvReac Type Severity Reaction Status Date / Time erythromycin base Allergy Unknown unknown Verified 05/01/23 13:02 codeine Allergy swelling Verified 05/01/23 13:02 Iodinated Contrast Media Allergy swelling Verified 05/01/23 13:02 iodine Allergy swelling Verified 05/01/23 13:02 meperidine [From Demerol] Allergy heart stop Verified 05/01/23 13:02 morphine Allergy swelling Verified 05/01/23 13:02 propoxyphene Allergy heart stop Verified 05/01/23 13:02 [From Darvocet-N] tetracycline Allergy Other Verified 05/01/23 13:02 Family History Mother CVA (cerebral vascular accident) Father Hypertension Surgical History H/O eye surgery H/O mastectomy H/O submandibular gland removal Social History Smoking Status: Never smoker second hand exposure: Yes alcohol intake: never EXAM Physical Exam Const Vital Signs: 05/01/23 12:59 05/01/23 14:50 Temperature 97.9 F Temperature Source Temporal Pulse Rate 68 63 Respiratory Rate 18 16 Blood Pressure 147/60 H Blood Pressure Mean 89 Pulse Ox 98 97 Oxygen Delivery Method Room Air Room Air MDM MDM MDM Narrative Medical decision making narrative: HISTORY OF PRESENT ILLNESS: 78-year-old female here with nausea and vomiting for 1 week. She also states she is abdominal pain. States she has had 1 week of nausea nonbloody nonbilious vomitus. States her last bowel movement 4 days ago. Denies any melena or hematochezia. Denies history of abdominal surgery. Denies any fever. Denies any chest pain or shortness of breath. States she feels like she is dehydrated. REVIEW OF SYSTEMS: Pertinent positives: Abdominal pain, nausea vomiting Pertinent negatives: Chest pain, shortness of breath, syncope PHYSICAL EXAM: Nursing triage notes reviewed, Vital signs reviewed Constitutional: please see mdm HENT: MMM Eyes: Pupils equal round and reactive to light, Extraocular muscles intact Neck: No stridor, no JVD, full neck ROM Lungs: Clear to auscultation, No wheezing or rales. No increased work of breathing, no conversational dyspnea, no accessory muscle use, no nasal flaring. No respiratory distress noted Heart: Regular rate and rhythm, No murmurs, No rubs and No gallops, 2+ distal pulses (radial, femoral, posterior tibial) in all extremities Abdomen: Soft, diffuse tenderness, negative Alvarado sign but no rigidity, rebound or guarding, no obvious peritoneal signs, no palpable pulsatile abdominal masses, no auscultated abdominal bruit : No CVAT Extremities: No edema Neuro: No focal neurological deficits, cranial nerves II through XII intact, 5/5 strength in all extremities. Intact sensation to light touch in all extremities, 2+ reflexes bilateral patella tendons. Normal gait. No ataxia. Skin: No rash or lesions noted MEDICAL DECISION MAKING: Chief Complaint: Abdominal pain External records reviewed: Prior imaging studies reviewed: CT scan of the abdomen shows a 2.4 cm abdominal aortic aneurysm. Last ED visit in February 2023 for Factors affecting care: hypertension, hyperlipidemia, GERD, COPD, CVA, peripheral edema, Social determinants of health: Elderly, [facility] resident History obtained from others: The patient's son Consults: none MDM Narrative: Patient was hemodynamically stable, afebrile, nontoxic-appearing. Abdominal exam was diffusely tender but overall benign with no obvious peritoneal signs. I considered the following differential diagnosis: AAA, small bowel obstruction, abdominal perforation, appendicitis, pancreatitis, hepatobiliary pathology (acute cholecystitis), mesenteric ischemia, pathology (ie nephrolithiasis, pyelonephritis). I obtained a broad lab and imaging work-up to further elucidate the etiology of the patient's complaints. I treated the patient with 1 L IV normal saline, Zofran for nausea, Toradol and Pepcid for pain. ALL IMAGES (IF OBTAINED) HAVE BEEN PERSONALLY REVIEWED AND INTERPRETED BY MYSELF. CBC with no leukocytosis, anemia, no thrombocytopenia BMP without significant electrode abnormalities, no anion gap, no acute kidney injury Urinalysis shows no evidence of urinary inflammation suggestive of UTI Lipase is wnl indicating no pancreatic inflammation. LFTs show no evidence of hepatobiliary pathology. CT scan shows evidence of cholelithiasis, no increase in size of the aneurysm. Patient's liver function and pancreas function are within normal limits below suspicion for occlusive gallbladder disease or acute cholecystitis Synthesis of the patient's history, physical, lab and imaging work-up showed no evidence of a life-threatening etiology. Repeat abdominal exam remained benign. Patient is appropriate discharge home with nausea medicines and ibuprofen pain control instructions. The patient and/or family, caregivers express understanding. The patient and/or family, caregivers agrees with the plan. Shared decision making: I will have a discussion with the patient and or visitors regarding risk/benefits of further testing or admission. They will be made aware of of the risk/benefits inherent in this decision they will be given the opportunity to voice understanding. Total critical care time today provided was at least 0 minutes. This excludes separately billable procedures. Critical care time (if documented) is secondary to the patient having high probability of clinically significant/life threatening deterioration in the patient's condition which required my urgent intervention. Impression: 1. Abdominal pain 2. Nausea vomiting 3. Cholelithiasis Dispo: Discharge Lab Data Attestation: I reviewed the patient's lab results. Labs: Laboratory Results - last 24 hr 05/01/23 05/01/23 13:00 13:45 WBC 7.6 RBC 4.49 Hgb 11.2 L Hct 37.7 MCV 84.0 MCH 24.9 L MCHC 29.7 L RDW Std Deviation 71.4 H RDW Coeff of Tesfaye 24.2 H Plt Count 266 MPV 10.7 Immature Gran % (Auto) 1.400 H Neut % (Auto) 67.8 Lymph % (Auto) 21.1 Lee % (Auto) 8.4 Eos % (Auto) 0.5 Baso % (Auto) 0.8 Absolute Neuts (auto) 5.2 Absolute Lymphs (auto) 1.61 Nucleated RBC % 0 Differential Comment SCANNED Anisocytosis 2+ Microcytosis 1+ Macrocytosis 1+ Sodium 137 Potassium 3.8 Chloride 107 Carbon Dioxide 28.0 Anion Gap 2 L BUN 14 Creatinine 0.80 Estim Creat Clear Calc 48.07 Est GFR (MDRD) Af Amer 90 Est GFR (MDRD) Non-Af 74 BUN/Creatinine Ratio 17.6 Glucose 125 H Calcium 9.3 Total Bilirubin 0.30 Direct Bilirubin 0.11 AST 15 ALT 22 Alkaline Phosphatase 76 Total Protein 6.9 Albumin 3.9 Globulin 3.0 Lipase 47 Urine Color Yellow Urine Clarity Clear Urine pH 7.0 Ur Specific [place] 1.010 Urine Protein Negative Urine Glucose (UA) Normal Urine Ketones Negative Urine Occult Blood Negative Urine Nitrite Negative Urine Bilirubin Negative Urine Urobilinogen Normal Ur Leukocyte Esterase 25 H Urine RBC 0 SEEN Urine WBC 0-5 SEEN Ur Squamous Epith Cells 0 SEEN Urine Bacteria 0 SEEN Urine Mucus 0 SEEN Radiography Diagnostic Testing: Clinical Impression(s) from Imaging Studies Abdomen/Pelvis CT 05/01/23 14:13 IMPRESSION: Nonobstructing bilateral renal calculi. Cholelithiasis. Stable 2 cm left adrenal adenoma. No significant interval change in size mild infrarenal abdominal aortic aneurysm. No acute rupture. Electronically Signed: Bhavna Roberts MD at 14:59 EDT , Discharge Plan Triage Chief Complaint: Abd Pain ED Provider: Wolf Okeefe Dx/Rx/DC Orders Instructions: ED Abdominal Pain Unkn Cause Fem Prescriptions: New ondansetron 4 mg tablet,disintegrating 4 mg PO Q8H PRN (Reason: nausea and vomiting) 3 Days Qty: 9 0RF No Action alprazolam 1 mg tablet 1 mg PO BID Patient Comments: take 1 tablet by mouth twice a day pravastatin 40 mg tablet 40 mg PO QHS Patient Comments: take 1 tablet by mouth once daily at bedtime omeprazole 20 mg capsule,delayed release(DR/EC) 20 mg PO DAILY Patient Comments: take 1 capsule by mouth once daily ipratropium bromide 21 mcg (0.03 %) spray,non-aerosol 2 spray intranasal BID-TID PRN Patient Comments: place 1 spray into each nostril 2 to three times a day if needed for ALLERGY SYMPTOMS fluorometholone 0.1 % drops,suspension 1 drp ophthalmic (eye) BID Patient Comments: place 1 drop into both eyes twice a day atenolol 25 mg tablet 25 mg PO DAILY hydroxyzine HCl 25 mg tablet 25 mg PO TID PRN baclofen 10 MG tablet 10 mg PO TID PRN (Reason: Muscle Spasm) 0RF aspirin 81 mg tablet,delayed release (DR/EC) 81 mg PO DAILY Patient Comments: take 1 tablet by mouth once daily Primary Care Provider: Partha Batres Chi Referrals: Partha Batres Chi, MD [Primary Care Provider] - Activity Restrictions/Additional Instructions: Thank you for trusting us with your care today! Please take Tylenol (2 pills, 650 mg), ibuprofen (2 pills, 400 mg) every 6 hours as needed for pain and fever control. Please take Zofran as needed for nausea and vomiting. Please return to the emergency department if your symptoms change or worsen. Specifically if cannot tolerate medicine or food by mouth. If you lose consciousness. Develop worsening abdominal pain. Please follow with your primary care physician for further outpatient evaluation and management. Disposition Disposition: Home, Self Care Discharge Date/Time: 05/01/23 16:20
[2023-05-01 14:13] LABS: White Blood Cells 0-5 SEEN /hpf (0-5)
--- NOTE | 2023-05-01 14:13 | CT_ITS ---
HISTORY: abdominal pain. TECHNIQUE: Helically acquired images were obtained of the abdomen and pelvis without oral or IV contrast. A radiation dose optimization technique was used for this scan. 393 images. COMPARISON: 01/08/2023. FINDINGS: LOWER CHEST: Lung bases clear. BOWEL: Bowel nondilated. Appendix not visualized. Moderate stool in the colon. PERITONEUM: No significant free fluid. LIVER: Unremarkable. GALLBLADDER/BILIARY TREE: Tiny calcification at the gallbladder wall best seen on the reformatted images. SPLEEN/PANCREAS: Nonenlarged. KIDNEYS AND URETERS: Multiple bilateral renal calculi again seen. No hydronephrosis. ADRENAL GLANDS: 2 cm low-attenuation left nodule again seen. VESSELS: Stable 2.4 cm infrarenal abdominal aortic aneurysm. Atherosclerosis noted. No acute retroperitoneal hematoma. PELVIC ORGANS: Unremarkable. ABDOMINAL WALL: Calcified posterior subcutaneous granulomas. Tiny fat-containing umbilical hernia. BONES: Bilateral L5 spondylolysis with chronic grade [address]/Abdomen/Pelvis without Cont IMPRESSION: Nonobstructing bilateral renal calculi. Cholelithiasis. Stable 2 cm left adrenal adenoma. No significant interval change in size mild infrarenal abdominal aortic aneurysm. No acute rupture. Electronically Signed: Bhavna Roberts MD at 14:59 EDT ,
[2023-05-01] MEDS: 0.9% Normal Saline (500mL Bag) 500 ML 999 ML IV (14:18)
[2023-05-01] MEDS: Ondansetron 4 MG/2 ML Vial IV (14:18)
[2023-05-01 14:36] LABS: Lipase 47 U/L (13-75)
[2023-05-01 14:42] LABS: AST(SGOT) 15 U/L (15-37); Alanine Aminotransfer ALT/SGPT 22 U/L (13-56); Albumin, Serum 3.9 g/dL (3.2-5.0); Alkaline Phosphatase 76 U/L (45-117); Bilirubin, Direct 0.11 mg/dL (0.00-0.30); Protein, Total 6.9 g/dL (6.4-8.2)
[2023-05-01 14:50] VITALS: BP 147/60; PULSE 63; RESP 16; O2SAT 97
[2023-05-01] MEDS: Famotidine 200 MG/20 ML MDV 20 MG in 0.9% Normal Saline (Pres. free 8 ML 300 MG IV (14:58)
[2023-05-01] MEDS: Ketorolac 15 MG/ML Vial IV (14:59)
== END 2023-05-01 16:20 | disposition home or self-care (01) ==
PROVIDERS: Emergency Provider Emergency Medicine; PCP Family Medicine Geriatric Medicine; Visit Provider Emergency Medicine
DX: R10.9 Unspecified abdominal pain (principal); J44.9 Chronic obstructive pulmonary disease, unspecified; I71.43 Infrarenal abdominal aortic aneurysm, without rupture; E11.9 Type 2 diabetes mellitus without complications; I10 Essential (primary) hypertension; E78.5 Hyperlipidemia, unspecified; K21.9 Gastro-esophageal reflux disease without esophagitis; K80.20 Calculus of gallbladder without cholecystitis without obstruction; Z86.73 Personal history of transient ischemic attack (TIA), and cerebral infarction without residual deficits; R11.2 Nausea with vomiting, unspecified; Z79.82 Long term (current) use of aspirin
CPT/HCPCS: 74176; 80048; 80076; 81001; 83690; 85025; 96361; 96374; 96375; 99285; J7040; A4216; J2405; J3490

== ENCOUNTER → 2023-05-15 | Outpatient (CLI) | payer MEDICARE, OTHER, SELFPAY ==
[2023-05-15 16:08] LABS: Absolute Lymphocyte Count 3.08 X10^3/uL (0.83-4.51); Absolute Neutrophil Count 7.2 X10^3/uL (2.0-7.7); Basophil# 0.13 X10^3/uL; Basophil% 1.1 % (0-1); Eosinophil# 0.08 X10^3/uL; Eosinophils% 0.7 % (0-5); Hematocrit 38.9 % (37-47); Hemoglobin 11.7 g/dL (12.0-15.0); Lymphocyte # 3.08 X10^3/ul (0.83-4.51); Lymphocyte % 25.4 % (19-41); Mean Corp Hgb Conc 30.1 g/dL (32-36); Mean Corpuscular Hgb 25.7 pg (27.0-32.0); Mean Corpuscular Volume 85.3 fL (81-99); Mean Platelet Vol. 11.1 fl (6.2-12.0); Monocyte# 1.15 X10^3/uL; Monocyte% 9.5 % (0-10); NRBC Flagged by Analyzer 0 % (0-5); Neutrophil # 7.15 X10^3/uL (2.7-7.7); Neutrophil % 58.9 % (47-70); POSITIVE MORPHOLOGY YES; Platelet Count 307 K/mm3 (150-450); RBC Distribution Width CV 23.2 % (11.6-14.6); RBC Distribution Width SD 71.2 fl (35.1-43.9); Red Blood Count 4.56 M/mm3 (4.2-5.4); White Blood Count 12.1 K/mm3 (4.4-11.0)
[2023-05-15 16:12] LABS: Differential Indicated SCAN CRITERIA MET
[2023-05-15 17:08] LABS: Anisocytosis 2+; Differential Comment SCANNED; Macrocytosis 1+; Microcytosis 1+
== END | disposition home or self-care (01) ==
PROVIDERS: PCP Family Medicine Geriatric Medicine; Visit Provider Family Medicine Geriatric Medicine
DX: K56.41 Fecal impaction (principal); R10.9 Unspecified abdominal pain
CPT/HCPCS: 36415; 85025

== ENCOUNTER → 2023-05-23 | Outpatient (CLI) | payer MEDICARE, OTHER, SELFPAY ==
--- NOTE | 2023-05-23 15:10 | RAD_ITS ---
INDICATION: ABDOMINAL PAIN EXAMINATION/TECHNIQUE: X-RAY - XR Abdomen Series W/ Chest 1 View COMPARISON: CT abdomen and pelvis 05/01/2023 FINDINGS: --Chest: LINES/DEVICES: None. LUNGS: No consolidation, edema or effusion. No pneumothorax. MEDIASTINUM AND CARDIOVASCULAR STRUCTURES: Mild cardiomegaly. BONES AND SOFT TISSUES: Chronic appearing fracture of the left humeral neck. Surgical clips in the left breast. --Abdomen: BOWEL GAS PATTERN: Non-obstructive. No bowel or stomach distention. FREE AIR: None visualized. ORGANOMEGALY: Not seen. CALCIFICATIONS: Bilateral nephrolithiasis. Injection granulomas projecting over the pelvis. BONES AND SOFT TISSUES: No acute findings. RAD/Acute Abdomen Inc Chest IMPRESSION: No acute cardiopulmonary disease. Nonobstructive bowel gas pattern. Bilateral nephrolithiasis. Electronically Signed: Narendra Michael MD at 0:50 EDT ,
[2023-05-23 17:34] LABS: Absolute Lymphocyte Count 2.43 X10^3/uL (0.83-4.51); Absolute Neutrophil Count 6.5 X10^3/uL (2.0-7.7); Basophil# 0.08 X10^3/uL; Basophil% 0.8 % (0-1); Eosinophil# 0.06 X10^3/uL; Eosinophils% 0.6 % (0-5); Hematocrit 41.9 % (37-47); Hemoglobin 12.4 g/dL (12.0-15.0); Lymphocyte # 2.43 X10^3/ul (0.83-4.51); Lymphocyte % 24.6 % (19-41); Mean Corp Hgb Conc 29.6 g/dL (32-36); Mean Corpuscular Hgb 25.5 pg (27.0-32.0); Mean Platelet Vol. 11.2 fl (6.2-12.0); Monocyte% 7.1 % (0-10); NRBC Flagged by Analyzer 0 % (0-5); Neutrophil # 6.45 X10^3/uL (2.7-7.7); Neutrophil % 65.5 % (47-70); POSITIVE MORPHOLOGY YES; Platelet Count 301 K/mm3 (150-450); RBC Distribution Width CV 22.9 % (11.6-14.6); RBC Distribution Width SD 70.2 fl (35.1-43.9); Red Blood Count 4.87 M/mm3 (4.2-5.4); White Blood Count 9.9 K/mm3 (4.4-11.0)
[2023-05-23 17:48] LABS: Vitamin D,25 Hydroxy 34.4 ng/mL
[2023-05-23 18:06] LABS: Differential Indicated SCAN CRITERIA MET
[2023-05-23 18:07] LABS: Platelet Estimate ADEQUATE (ADEQ); Toxic Granulation RARE
[2023-05-23 18:08] LABS: Anisocytosis 1+; Macrocytosis RARE; Red Cell Morphology N CHROM NORMAL (NORM C&C)
[2023-05-23 18:12] LABS: ALB/GLOB Ratio 1.1 RATIO (0.9-2.4); AST(SGOT) 23 U/L (15-37); Alanine Aminotransfer ALT/SGPT 31 U/L (13-56); Albumin, Serum 3.7 g/dL (3.2-5.0); Alkaline Phosphatase 83 U/L (45-117); Anion Gap 6 (5-15); BUN 13 mg/dL (7-18); Calcium,Total 9.1 mg/dL (8.5-10.1); Chloride 104 mmol/L (98-107); Cholesterol 285 mg/dL (200); Creatinine, Serum 0.81 mg/dL (0.55-1.02); EST Glomerular Filtration Rate 73 mL/min (>60); Est Glom Filt Rate - Afr Amer 88 mL/min (>60); Globulin 3.4 g/dL (2.2-4.2); Glucose 77 mg/dL (74-106); High Density Lipoprotein 48 mg/dL; Potassium 3.9 mmol/L (3.5-5.1); Protein, Total 7.1 g/dL (6.4-8.2); Sodium Level 139 mmol/L (136-145); Thyroid Stim Hormone (TSH) 0.67 uIU/mL (0.358-3.74); Triglycerides 510 mg/dL
== END | disposition home or self-care (01) ==
LOC: MTLAB 15:06
PROVIDERS: PCP Family Medicine; Referring Provider Family Medicine; Visit Provider Family Medicine
DX: R10.9 Unspecified abdominal pain (principal); E78.5 Hyperlipidemia, unspecified; I10 Essential (primary) hypertension
CPT/HCPCS: 36415; 74022; 80053; 80061; 82306; 84443; 85025

== ENCOUNTER → 2023-07-03 | Outpatient (CLI) | payer MEDICARE, OTHER, SELFPAY ==
--- NOTE | 2023-07-03 15:50 | RAD_ITS ---
STUDY: X-RAY CHEST REASON FOR EXAM: Female, 78 years old. SOB TECHNIQUE: Frontal and lateral views of the chest. COMPARISON: 05/23/2023. FINDINGS: There is hyperinflation of the lungs consistent with chronic obstructive lung disease (COPD). No infiltrates. No effusions. There is no demonstrated pleural abnormality. Normal size heart. Normal mediastinum and abida. Normal visualized pulmonary arteries. There is atherosclerotic calcification of the aortic arch with tortuosity. There is demineralization of the osseous structures. Chronic ununited fracture of the left humerus. There is no demonstrated abnormality of the visualized soft tissue structures of the upper abdomen. There are clips in the left axilla consistent with lymphadenectomy for breast cancer. RAD/Chest PA and Lateral IMPRESSION: There are findings consistent with COPD. There is no evidence of acute chest disease. Electronically Signed: Rob Gallagher MD at 22:56 EST ,
== END | disposition home or self-care (01) ==
LOC: MTRAD 15:50
PROVIDERS: PCP Family Medicine; Referring Provider Family Medicine; Visit Provider Family Medicine
DX: R06.02 Shortness of breath (principal)
CPT/HCPCS: 71046

== ENCOUNTER → 2023-08-13 | Outpatient (CLI) | payer MEDICARE, OTHER, SELFPAY ==
--- NOTE | 2023-08-13 11:02 | US_ITS ---
STUDY: ABDOMINAL ULTRASOUND - RIGHT UPPER QUADRANT REASON FOR VISIT: Female, 78 years old RUQ pain, r/o gallstone pathology TECHNIQUE: Ultrasound evaluation of the right upper quadrant was performed with real-time and static ochoa-scale imaging. TECHNICAL QUALITY: Adequate. COMPARISON: None. FINDINGS: Liver: The liver measures 15.5 cm. There is normal echogenicity of the liver. The bile ducts are within normal limits. There is hepatic color flow. The direction of portal flow is hepatopetal. There is no demonstrated mass lesion. Gallbladder: Normal distended gallbladder. The gallbladder wall measures 0.7 mm. There is a negative sonographic Alvarado''s sign. There is no pericholecystic fluid. There are no gallstones. Common Bile Duct (C.B.D.): The common bile duct measures 5.4 mm. Pancreas: Normal size of the head, body and tail of the pancreas. There is normal echogenicity of the pancreas. There is no demonstrated pancreatic mass or cyst. Right Kidney: Normal size of the right kidney. The right kidney measures 9.1 cm x 4.9 cm x 4.9 cm. Normal renal cortex. The right cortex measures 1 cm. Final suggestive of 2 tiny nonobstructive right intrarenal calculi. There is no right hydronephrosis. US/Abdomen Limited IMPRESSION: 2 tiny nonobstructive right intrarenal calculi. Electronically Signed: Titi Milton MD at 15:40 EST ,
== END | disposition home or self-care (01) ==
PROVIDERS: PCP Family Medicine; Referring Provider Family Medicine; Visit Provider Family Medicine
DX: R10.11 Right upper quadrant pain (principal)
CPT/HCPCS: 76705

== ENCOUNTER 2023-10-29 15:58 | Outpatient (CLI) | payer MEDICARE, OTHER, SELFPAY ==
[2023-10-29 17:46] LABS: Absolute Lymphocyte Count 2.79 X10^3/uL (0.83-4.51); Basophil# 0.09 X10^3/uL; Basophil% 0.9 % (0-1); Eosinophil# 0.07 X10^3/uL; Eosinophils% 0.7 % (0-5); Hematocrit 36.7 % (37-47); Hemoglobin 11.4 g/dL (12.0-15.0); Lymphocyte # 2.79 X10^3/ul (0.83-4.51); Lymphocyte % 27.5 % (19-41); Mean Corp Hgb Conc 31.1 g/dL (32-36); Mean Platelet Vol. 11.7 fl (6.2-12.0); Monocyte# 0.91 X10^3/uL; NRBC Flagged by Analyzer 0 % (0-5); Neutrophil # 6.03 X10^3/uL (2.7-7.7); Neutrophil % 59.5 % (47-70); Platelet Count 287 K/mm3 (150-450); RBC Distribution Width CV 15.8 % (11.6-14.6); RBC Distribution Width SD 50.4 fl (35.1-43.9); Red Blood Count 4.22 M/mm3 (4.2-5.4); White Blood Count 10.1 K/mm3 (4.4-11.0)
[2023-10-29 18:39] LABS: ALB/GLOB Ratio 1.4 RATIO (0.9-2.4); AST(SGOT) 19 U/L (15-37); Alanine Aminotransfer ALT/SGPT 21 U/L (13-56); Albumin, Serum 4.1 g/dL (3.2-5.0); Alkaline Phosphatase 86 U/L (45-117); Anion Gap 3 (5-15); BUN 18 mg/dL (7-18); BUN/Creat Ratio 21.8 RATIO (10-20); Calcium,Total 8.9 mg/dL (8.5-10.1); Chloride 107 mmol/L (98-107); Creatinine, Serum 0.82 mg/dL (0.55-1.02); EST Glomerular Filtration Rate 71 mL/min (>60); Est Glom Filt Rate - Afr Amer 86 mL/min (>60); Ferritin 10 ng/mL (8-252); Glucose 99 mg/dL (74-106); Iron 26 ug/dL (50-170); Iron Binding Capacity,Total 541 ug/dL (250-450); PERCENT IRON SATURATION 4.8 % (15.0-55.0); Potassium 4.1 mmol/L (3.5-5.1); Protein, Total 7.1 g/dL (6.4-8.2); Sodium Level 137 mmol/L (136-145)
[2023-10-29 20:12] LABS: Vitamin B12 633 pg/mL (211-911); Vitamin D,25 Hydroxy 39.9 ng/mL
[2023-10-31 17:07] LABS: Absolute CD3 2243 /uL (622-2402); Basophils (Absolute) 0.1 x10E3/uL (0.0-0.2); CD4/CD8 Ratio 2.06 (0.92-3.72); Eosinophils 1 % (Not Estab.); Eosinophils (Absolute) 0.1 x10E3/uL (0.0-0.4); Hematocrit 36.8 % (34.0-46.6); Hemoglobin 11.5 g/dL (11.1-15.9); Lymphs 29 % (Not Estab.); Lymphs (Absolute) 2.8 x10E3/uL (0.7-3.1); MCH 27.2 pg (26.6-33.0); MCHC 31.3 g/dL (31.5-35.7); MCV 87 fL (79-97); Monocytes 8 % (Not Estab.); Monocytes (Absolute) 0.8 x10E3/uL (0.1-0.9); Neutrophils 59 % (Not Estab.); Neutrophils (Absolute) 5.7 x10E3/uL (1.4-7.0); Percent % CD3 Pos. Lymph. 80.1 % (57.5-86.2); Platelets 284 x10E3/uL (150-450); RBC Count 4.23 x10E6/uL (3.77-5.28); WBC Count 9.7 x10E3/uL (3.4-10.8)
[2023-11-01 17:10] LABS: Percent % CD4 Pos. Lymph. 53.9
[2023-11-01 17:11] LABS: Absolute CD4 Helper 1509
== END 2023-10-29 23:59 | disposition home or self-care (01) ==
LOC: MTLAB 15:59
PROVIDERS: PCP Family Medicine; Referring Provider Family Medicine; Visit Provider Family Medicine
DX: E61.1 Iron deficiency (principal); G47.62 Sleep related leg cramps; R76.8 Other specified abnormal immunological findings in serum
CPT/HCPCS: 36415; 80053; 82306; 82607; 82728; 82746; 83540; 83550; 85025; 86359

== ENCOUNTER → 2023-12-31 | Outpatient (CLI) | payer MEDICARE, OTHER, SELFPAY ==
[2023-12-31 17:58] LABS: Potassium 3.7 mmol/L (3.5-5.1)
== END | disposition home or self-care (01) ==
LOC: MTLAB 16:58
PROVIDERS: PCP Family Medicine; Referring Provider Family Medicine; Visit Provider Family Medicine
DX: E87.6 Hypokalemia (principal)
CPT/HCPCS: 36415; 84132

== ENCOUNTER → 2024-04-19 | Outpatient (CLI) | payer MEDICARE, OTHER, SELFPAY ==
--- NOTE | 2024-04-19 14:40 | CT_ITS ---
STUDY: CT ABDOMEN T PELVIS WITHOUT CONTRAST REASON FOR EXAM: Female, 79 years old. Epigastric pain RADIATION DOSAGE (If Supplied By Facility): CTDIvol = ( 6.35 ) mGy, DLP = ( 261.75 ) mGycm TECHNIQUE: Transaxial imaging was performed without the administration of intravenous contrast material. Multiplanar coronal and sagittal images were reformatted. Individualized dose optimization techniques were used for this CT. COMPARISON: No relevant priors. FINDINGS: ABDOMEN The visualized lung bases are unremarkable. Coronary artery calcification. Normal liver. Normal gallbladder and extrahepatic biliary system. Normal spleen. Normal pancreas. There is a small, circumscribed, smooth, low attenuation left adrenal mass, consistent with an adrenal adenoma. This measures 2.4 cm x 1.6 cm. Normal right adrenal gland. Normal right kidney. Normal left kidney. Extensive atherosclerotic plaque formation of the branches of the right and left renal arteries. 2 mm nonobstructive calculi seen in the lower pole calyx of the right kidney. 5 mm nonobstructive calculus in the lower pole calyx of the left kidney. Normal visualized stomach. Normal small intestine. There are multiple colonic diverticula consistent with diverticulosis. Moderate amount of fecal material is seen in the colon. The appendix is visualized and appears normal. There is diffuse atherosclerotic calcification of the abdominal aorta and its major visceral branches. Aneurysm. Normal inferior vena cava. Normal retroperitoneum. Normal abdominal wall. This baseline at the L5-S1 level with a grade 2 anterolisthesis of L5 on S1 with spondylolysis of the pars interarticularis of the L5 vertebrae. PELVIS Normal urinary bladder. There is no pelvic fluid. There is no pelvic lymphadenopathy or mass lesion. There is diffuse atherosclerotic calcification of the pelvic arteries. CT/Abdomen/Pel W ORAL Cont Only IMPRESSION: Extensive atherosclerotic calcification of the aorta and its major visceral branches with evidence of bilateral intrarenal arterial calcifications. Nonobstructive bilateral intrarenal calculi. Findings suggestive of a small left adrenal adenoma. Electronically Signed: Titi Milton MD at 14:26 EDT ,
== END | disposition home or self-care (01) ==
LOC: CT 14:36
PROVIDERS: PCP Family Medicine; Referring Provider Family Medicine; Visit Provider Family Medicine
DX: R10.31 Right lower quadrant pain (principal)
CPT/HCPCS: 74176

== ENCOUNTER → 2024-05-06 | Outpatient (CLI) | payer MEDICARE, OTHER, SELFPAY ==
[2024-05-06 18:18] LABS: Rheumatoid Factor < 10.0 IU/mL (<15)
== END | disposition home or self-care (01) ==
PROVIDERS: PCP Family Medicine; Visit Provider Family Medicine
DX: R35.0 Frequency of micturition (principal); M19.90 Unspecified osteoarthritis, unspecified site; R30.0 Dysuria
CPT/HCPCS: 36415; 86431; 87086; 87088; 87186

== ENCOUNTER → 2024-06-25 | Outpatient (CLI) | payer MEDICARE, OTHER, SELFPAY | END | disposition home or self-care (01) | LOC: LABSPEC 09:20 | PROVIDERS: PCP Family Medicine; Referring Provider Family Medicine; Visit Provider Family Medicine | DX: R35.0 Frequency of micturition (principal) | CPT/HCPCS: 87077; 87086; 87088; 87186 ==

== ENCOUNTER → 2024-10-07 | Outpatient (CLI) | payer MEDICARE, OTHER, SELFPAY ==
--- NOTE | 2024-10-07 16:00 | RAD_ITS ---
PROCEDURE: HIP, UNI W/ PELVIS 2-3 VIEWS 10/07/2024 REASON FOR EXAM: RIGHT HIP PAIN TECHNIQUE: Two views of the right hip an AP view of the pelvis COMPARISON: None FINDINGS: No acute fracture or dislocation. The pelvic ring is intact. No soft tissue abnormality. RAD/HIP, UNI W/ Pelvis 2-3 Views IMPRESSION: NO ACUTE FRACTURE OR DISLOCATION. If acute hip fracture is suspected after a fa ll or minor trauma and initial radiographs are negative then MRI of the pelvis and affected hip without IV contrast or CT of t he pelvis and hips without IV contrast is usually appropriate as the next imaging study. (ACR Appropriateness Criteria: Acute Hip Pain-Suspected Fracture 2018) Reading Location: [facility]
[2024-10-07 17:46] LABS: Absolute Lymphocyte Count 2.31 X10^3/uL (0.83-4.51); Absolute Neutrophil Count 6.8 X10^3/uL (2.0-7.7); Basophil# 0.09 X10^3/uL; Basophil% 0.9 % (0-1); Eosinophil# 0.08 X10^3/uL; Eosinophils% 0.8 % (0-5); Hematocrit 38.5 % (37-47); Hemoglobin 12.5 g/dL (12.0-15.0); Lymphocyte # 2.31 X10^3/ul (0.83-4.51); Lymphocyte % 22.2 % (19-41); Mean Corp Hgb Conc 32.5 g/dL (32-36); Mean Corpuscular Hgb 29.7 pg (27.0-32.0); Mean Corpuscular Volume 91.4 fL (81-99); Mean Platelet Vol. 12.3 fl (6.2-12.0); Monocyte# 0.96 X10^3/uL; Monocyte% 9.2 % (0-10); NRBC Flagged by Analyzer 0 % (0-5); Neutrophil # 6.75 X10^3/uL (2.7-7.7); Platelet Count 217 K/mm3 (150-450); RBC Distribution Width CV 13.4 % (11.6-14.6); RBC Distribution Width SD 45.1 fl (35.1-43.9); Red Blood Count 4.21 M/mm3 (4.2-5.4); White Blood Count 10.4 K/mm3 (4.4-11.0)
[2024-10-07 20:34] LABS: Hemoglobin A1c 6.1 % (<=5.6)
[2024-10-07 22:21] LABS: ALB/GLOB Ratio 1.7 RATIO (0.9-2.4); AST(SGOT) 38 U/L (<=31); Alanine Aminotransfer ALT/SGPT 21 U/L (<=34); Albumin, Serum 4.5 g/dL (3.4-4.8); Alkaline Phosphatase 81 U/L (35-104); Anion Gap 15 (5-15); BUN 21 mg/dL (4-19); BUN/Creat Ratio 22.1 RATIO (10-20); Calcium,Total 9.5 mg/dL (7.6-11.0); Carbon Dioxide 20.9 mmol/L (21.0-32.0); Chloride 103 mmol/L (98-108); Cholesterol 161 mg/dL (<=200); Creatinine, Serum 0.96 mg/dL (0.70-1.20); EST Glomerular Filtration Rate 61 (>60); Globulin 2.7 g/dL (2.2-4.2); Glucose 81 mg/dL (70-99); High Density Lipoprotein 51 mg/dL; Low Density Lipoprotein Calc. 72 mg/dL; Potassium 4.2 mmol/L (3.3-5.1); Protein, Total 7.1 g/dL (5.9-8.4); Sodium Level 138 mmol/L (133-145); Total Bilirubin 0.24 mg/dL (0.00-1.30); Triglycerides 193 mg/dL; Very Low Density Lipoprotein 39 mg/dL (5-40); cholesterol:hdl ratio screen 3.18
== END | disposition home or self-care (01) ==
PROVIDERS: PCP Family Medicine; Referring Provider Family Medicine; Visit Provider Family Medicine
DX: Z00.00 Encounter for general adult medical examination without abnormal findings (principal); E11.65 Type 2 diabetes mellitus with hyperglycemia; Z78.0 Asymptomatic menopausal state; M25.559 Pain in unspecified hip; E78.5 Hyperlipidemia, unspecified
CPT/HCPCS: 36415; 73502; 80053; 80061; 83036; 85025

== ENCOUNTER → 2024-11-22 | Outpatient (CLI) | payer MEDICARE, OTHER, SELFPAY ==
--- NOTE | 2024-11-22 14:00 | MRI_ITS ---
PROCEDURE: LOWER EXT JOINT ONLY (ROUTINE) 11/22/2024 REASON FOR EXAM: HIP PAIN TECHNIQUE: MRI of the right lower Extremity. Multiplanar and multisequence images were obtained without IV contrast administration. COMPARISON: COMPARISON : October 07, 2024 FINDINGS: Negative for fracture or marrow replacement. No significant bone marrow edema. High-grade chondral defect along the anterosuperior aspect of the acetabulum measuring 15 x 12 mm. Diffusely diminutive appearance of the labrum which may relate to degenerative tearing. No paralabral cysts. No significant hip joint effusion or synovitis. Mild degenerative changes of the right sacroiliac joint. Major tendons about the right hip are intact. Musculature is symmetric and within normal limits for age. Visualized pelvic soft tissues are within normal limits. No bursal fluid collections. MRI/Lower Ext Joint Only (Routine) IMPRESSION: 1. No acute osseous abnormality. 2. Mild/moderate right hip osteoarthritis as above. Reading Location: [facility]
== END | disposition home or self-care (01) ==
LOC: MRI 13:55
PROVIDERS: PCP Family Medicine; Referring Provider Family Medicine; Visit Provider Family Medicine
DX: M25.559 Pain in unspecified hip (principal)
CPT/HCPCS: 73721